=== PATIENT | male | born 1935 | race Caucasian/White ===

== ENCOUNTER 2017-11-23 11:40 | Inpatient (IN) | payer MEDICARE ==
[~2017-11-23] VITALS: Ht 182.9 cm; Wt 85.0 kg
[2017-11-23] VITALS (8 sets, daily range): BP systolic 132–224; BP diastolic 67–105; PULSE 67–87; RESP 16–20; TEMP 97.6–98.3; O2SAT 95–97
[~2017-11-23 11:40] MED LIST: ALLO100T PO; CARV6.252 PO; COUM4TAB7 PO; DOXY100T PO; GABA300C3 PO; LISI-363 PO; NIFE1TAB86 PO; RED600TA PO; ST JTAB PO; TAB-TAB PO; TEST-55 TD; WARF2TAB PO; XANA0.5T PO
--- NOTE | 2017-11-23 11:58 | PD ---
HPI Chief Complaint: Abnormal Results Time Seen by Provider: 11:53 Travel History International Travel<30 days: No Contact w/Intl Traveler<30days: No Traveled to known affect area: No History of Present Illness HPI 82-year-old male with history of A. fib, hypertension, stage III chronic kidney disease, remote history of prostate cancer, presents to the emergency department for evaluation of worsening shortness of breath. Patient states he was started on minoxidil by Dr. Ramirez, his cell technician on October 31. Since then he has noticed increasing edema in his lower extremities and feels like he has been short of breath with increased wheezing. Patient states that he is unable to lie flat without significant shortness of breath. He is unable to do minimal activity without significant shortness of breath. Simply sitting here he feels short of breath. Denies any pain. He denies any recent illnesses, fever, or chills. He has no other symptoms reported this time. Patient's primary care provider is Dr. Day. His cell technician is Dr. Ramirez and his conference and event organiser is Dr. Rueda. PFSH Past Medical History Hx Anticoagulant Therapy: Yes Heart Rhythm Problems: Yes (A FIB, RCVD CARDIOVERSION) Cancer: Yes Cardiovascular Problems: Yes High Cholesterol: No Chemotherapy: No Cerebrovascular Accident: No Diabetes: No Diminished Hearing: Yes ([place]) Endocrine: No Glaucoma: No Hepatitis: No Hiatal Hernia: No Hypertension: Yes Immune Disorder: No Musculoskeletal: No Neurologic: No Psychiatric: No Reproductive: No Respiratory: No Radiation Therapy: Yes (PROSTATE) Thyroid Disease: No Past Surgical History Abdominal Surgery: Yes (BILATERAL INGUINAL HERNIA REPAIR) Eye Surgery: Yes (RIGHT EYE CATARACT) Genitourinary Surgery: Yes (prostatectomy) Pacemaker: No Prostatectomy: Yes Social History Alcohol Use: No Tobacco Use: No Substance Use: No Allergies-Medications (Allergen,Severity, Reaction): Coded Allergies: No Known Allergies (Verified Adverse Reaction, Unknown, 11/23/17) Reported Meds & Prescriptions Reported Meds & Active Scripts Active Reported Testosterone Topical (Testosterone) 10 Mg/0.5 Gm Gel 10 Mg TOPICAL DAILY 10 mg/actuation Minoxidil 10 Mg Tab 10 Mg PO DAILY Lisinopril 20 Mg Tab 20 Mg PO DAILY Hydralazine (Hydralazine HCl) 100 Mg Tab 50 Mg PO TID Take with meals Eliquis (Apixaban) 2.5 Mg Tab 2.5 Mg PO BID Carvedilol 6.25 Mg Tab 6.25 Mg PO BID Atorvastatin (Atorvastatin Calcium) 10 Mg Tab 10 Mg PO HS Aspirin 81 Mg Chew 81 Mg CHEW DAILY Alprazolam 0.5 Mg Tab 0.5 Mg PO BID PRN Allopurinol 100 Mg Tab 100 Mg PO DAILY Review of Systems Except as stated in HPI: all other systems reviewed are Neg Physical Exam Narrative GENERAL: This is a well-nourished elderly male patient, in no acute distress. SKIN: Focused skin assessment warm/dry. HEAD: Atraumatic. Normocephalic. EYES: Pupils equal and round. No scleral icterus. No injection or drainage. ENT: No nasal bleeding or discharge. Mucous membranes pink and moist. NECK: Trachea midline. No JVD. CARDIOVASCULAR: Regular rate and rhythm. RESPIRATORY: No accessory muscle use. Diminished with fine crackles in the bases. Breath sounds equal bilaterally. GASTROINTESTINAL: Abdomen soft, non-tender, nondistended. Ventral hernia is noted. Soft, nontender. Hepatic and splenic margins not palpable. MUSCULOSKELETAL: No obvious deformities. No clubbing. No cyanosis. 2+ plus bilateral lower extremity edema. Distal pulses are palpable. Cap refill within normal limits. NEUROLOGICAL: Awake and alert. No obvious cranial nerve deficits. Motor grossly within normal limits. Normal speech. PSYCHIATRIC: Appropriate mood and affect; insight and judgment normal. Data Data Last Documented VS Vital Signs Date Time Temp Pulse Resp B/P (MAP) Pulse Ox O2 Delivery O2 Flow Rate FiO2 11/23/17 12:03 210/100 (136) 167/89 (115) 11/23/17 12:02 96 Room Air 11/23/17 12:00 69 24 11/23/17 11:42 97.6 Orders Orders Electrocardiogram (11/23/17 11:58) B-Type Natriuretic Peptide (11/23/17 11:58) Ckmb (Isoenzyme) Profile (11/23/17 11:58) Complete Blood Count With Diff (11/23/17 11:58) Comprehensive Metabolic Panel (11/23/17 11:58) Magnesium (Mg) (11/23/17 11:58) Prothrombin Time / Inr (Pt) (11/23/17 11:58) Act Partial Throm Time (Ptt) (11/23/17 11:58) Troponin I (11/23/17 11:58) Ecg Monitoring (11/23/17 11:58) Bilateral Bp Monitoring (11/23/17 11:58) Iv Access Insert/Monitor (11/23/17 11:58) Oximetry (11/23/17 11:58) Oxygen Administration (11/23/17 11:58) Sodium Chloride 0.9% Flush (Ns Flush) (11/23/17 12:00) Chest, Pa & Lat (11/23/17 11:58) CKMB (11/23/17 12:07) CKMB% (11/23/17 12:07) Labs Laboratory Tests Test 11/23/17 12:07 White Blood Count 5.6 TH/MM3 Red Blood Count 2.52 MIL/MM3 Hemoglobin 7.6 GM/DL Hematocrit 23.0 % Mean Corpuscular Volume 91.3 FL Mean Corpuscular Hemoglobin 30.1 PG Mean Corpuscular Hemoglobin Concent 33.0 % Red Cell Distribution Width 16.7 % Platelet Count 243 TH/MM3 Mean Platelet Volume 8.2 FL Neutrophils (%) (Auto) 72.5 % Lymphocytes (%) (Auto) 9.7 % Monocytes (%) (Auto) 10.7 % Eosinophils (%) (Auto) 5.9 % Basophils (%) (Auto) 1.2 % Neutrophils # (Auto) 4.0 TH/MM3 Lymphocytes # (Auto) 0.5 TH/MM3 Monocytes # (Auto) 0.6 TH/MM3 Eosinophils # (Auto) 0.3 TH/MM3 Basophils # (Auto) 0.1 TH/MM3 CBC Comment DIFF FINAL Differential Comment Prothrombin Time 11.8 SEC Prothromb Time International Ratio 1.2 RATIO Activated Partial Thromboplast Time 42.4 SEC Blood Urea Nitrogen 67 MG/DL Creatinine 4.47 MG/DL Random Glucose 86 MG/DL Total Protein 6.0 GM/DL Albumin 2.9 GM/DL Calcium Level 9.1 MG/DL Magnesium Level 2.2 MG/DL Alkaline Phosphatase 60 U/L Aspartate Amino Transf (AST/SGOT) 16 U/L Alanine Aminotransferase (ALT/SGPT) 27 U/L Total Bilirubin 0.4 MG/DL Sodium Level 144 MEQ/L Potassium Level 4.5 MEQ/L Chloride Level 114 MEQ/L Carbon Dioxide Level 20.5 MEQ/L Anion Gap 10 MEQ/L Estimat Glomerular Filtration Rate 13 ML/MIN Total Creatine Kinase 310 U/L Creatine Kinase MB 4.6 NG/ML Creatine Kinase MB % 1.5 % Troponin I 0.32 NG/ML B-Type Natriuretic Peptide 188 PG/ML MDM Medical Decision Making Medical Screen Exam Complete: Yes Emergency Medical Condition: Yes Medical Record Reviewed: Yes Differential Diagnosis New onset CHF versus pneumonia versus electrolyte abnormality versus ACS Narrative Course 82-year-old male presents to emergency department for evaluation of worsening shortness of breath. Patient appears nontoxic however he does have 2+ plus bilateral lower extremity edema, diminished breath sounds, with crackles. He also is verbalizing significant shortness of breath. He has no pain. Laboratory Tests Test 11/23/17 12:07 White Blood Count 5.6 TH/MM3 Red Blood Count 2.52 MIL/MM3 Hemoglobin 7.6 GM/DL Hematocrit 23.0 % Mean Corpuscular Volume 91.3 FL Mean Corpuscular Hemoglobin 30.1 PG Mean Corpuscular Hemoglobin Concent 33.0 % Red Cell Distribution Width 16.7 % Platelet Count 243 TH/MM3 Mean Platelet Volume 8.2 FL Neutrophils (%) (Auto) 72.5 % Lymphocytes (%) (Auto) 9.7 % Monocytes (%) (Auto) 10.7 % Eosinophils (%) (Auto) 5.9 % Basophils (%) (Auto) 1.2 % Neutrophils # (Auto) 4.0 TH/MM3 Lymphocytes # (Auto) 0.5 TH/MM3 Monocytes # (Auto) 0.6 TH/MM3 Eosinophils # (Auto) 0.3 TH/MM3 Basophils # (Auto) 0.1 TH/MM3 CBC Comment DIFF FINAL Differential Comment Prothrombin Time 11.8 SEC Prothromb Time International Ratio 1.2 RATIO Activated Partial Thromboplast Time 42.4 SEC Blood Urea Nitrogen 67 MG/DL Creatinine 4.47 MG/DL Random Glucose 86 MG/DL Total Protein 6.0 GM/DL Albumin 2.9 GM/DL Calcium Level 9.1 MG/DL Magnesium Level 2.2 MG/DL Alkaline Phosphatase 60 U/L Aspartate Amino Transf (AST/SGOT) 16 U/L Alanine Aminotransferase (ALT/SGPT) 27 U/L Total Bilirubin 0.4 MG/DL Sodium Level 144 MEQ/L Potassium Level 4.5 MEQ/L Chloride Level 114 MEQ/L Carbon Dioxide Level 20.5 MEQ/L Anion Gap 10 MEQ/L Estimat Glomerular Filtration Rate 13 ML/MIN Total Creatine Kinase 310 U/L Creatine Kinase MB 4.6 NG/ML Creatine Kinase MB % 1.5 % Troponin I 0.32 NG/ML B-Type Natriuretic Peptide 188 PG/ML Last Impressions Chest X-Ray 11/23/17 1158 Signed Impressions: Service Date/Time: Thursday, November 23, 2017 12:15 - CONCLUSION: 1. Hyperaeration of lung menjivar with mild increased interstitial markings bilaterally suggestive of early pulmonary edema. 2. Small left pleural effusion. Mike Miller MD EKG is reviewed by my attending physician. Lab work is also reviewed. Patient' s hemoglobin is 7.6. He states that this has been worked up several times in the past and they "never find anything." Patient also has a creatinine of 4.47. In review of his lab work our last reading is 1.86. Patient's potassium is 4.5. Troponin is also elevated at 0.32. Again the patient is not having any pain and there are no significant changes on his EKG as reviewed by my attending. BNP is 188. I discussed the patient my attending physician. A call has been placed to Dr. Collier, [facility] hospitalist continuous process machine operator. Patient will be admitted to his service. I also discussed the patient with Dr. Rueda, conference and event organiser continuous process machine operator. A consult will be placed to them. Plan is discussed with the patient and his . They are in agreement with this plan of care. Diagnosis Primary Impression: Dyspnea Qualified Codes: R06.02 - Shortness of breath Additional Impressions: Pulmonary edema Qualified Codes: J81.0 - Acute pulmonary edema Acute on chronic kidney failure Qualified Codes: N17.9 - Acute kidney failure, unspecified; N18.9 - Chronic kidney disease, unspecified Elevated troponin Admitting Information Admitting Physician Requests: Admit Condition: Stable Lelo So DELIA Nov 23, 2017 11:58
--- NOTE | 2017-11-23 12:23 | RADRPT ---
EXAM DATE/TIME: 11/23/2017 12:15 [facility] COMPARISON: No previous studies available for comparison. INDICATIONS : Short of Breath MEDICAL HISTORY : Hypertension. SURGICAL HISTORY : None. ENCOUNTER: Initial ACUITY: 1 day PAIN SCORE: 0/10 LOCATION: chest FINDINGS: PA and lateral views of the chest demonstrates increased interstitial markings bilaterally. There is hyperaeration of the lung menjivar. There is blunting of the left costophrenic angle suggestive of a sm all effusion. The heart size is within normal limits. Osseous structures are intact. CONCLUSION: 1. Hyperaeration of lung menjivar with mild increased interstitial markings bilaterally suggestive of e maru pulmonary edema. 2. Small left pleural effusion. Mike Miller MD on November 23, 2017 at 12:20 Board Certified Radiologist. This report was verified electronically.
[2017-11-23 12:37] LABS: BASOPHIL # 0.1 TH/MM3 (0-0.2); BASOPHIL % 1.2 % (0.0-2.0); EOSINOPHIL # 0.3 TH/MM3 (0-0.4); EOSINOPHIL % 5.9 % (0.0-4.0); HEMOGLOBIN 7.6 GM/DL (13.0-17.0); LYMPH % 9.7 % (9.0-44.0); LYMPHOCYTE # 0.5 TH/MM3 (1.0-4.8); MEAN CELL VOLUME 91.3 FL (80.0-100.0); MEAN CORPUSCULAR HEMOGLOBIN 30.1 PG (27.0-34.0); MEAN PLATELET VOLUME 8.2 FL (7.0-11.0); MONO % 10.7 % (0.0-8.0); MONOCYTE # 0.6 TH/MM3 (0-0.9); NEUT % 72.5 % (16.0-70.0); PLATELET COUNT 243 TH/MM3 (150-450); RED BLOOD COUNT 2.52 MIL/MM3 (4.50-5.90); RED CELL DISTRIBUTION WIDTH 16.7 % (11.6-17.2); WHITE BLOOD COUNT 5.6 TH/MM3 (4.0-11.0)
[2017-11-23 12:47] LABS: INTERNATIONAL NORMALIZED RATIO 1.2 RATIO; PROTHROMBIN TIME - PATIENT 11.8 SEC (9.8-11.6)
[2017-11-23 12:58] LABS: ALBUMIN 2.9 GM/DL (3.4-5.0); AST (GOT) 16 U/L (15-37); BICARBONATE 20.5 MEQ/L (21.0-32.0); BLOOD UREA NITROGEN 67 MG/DL (7-18); CALCIUM 9.1 MG/DL (8.5-10.1); CHLORIDE 114 MEQ/L (98-107); CREATININE 4.47 MG/DL (0.60-1.30); GLOMERULAR FILTRATION RATE 13 ML/MIN (>89); GLUCOSE,RANDOM 86 MG/DL (74-106); MAGNESIUM 2.2 MG/DL (1.5-2.5); SODIUM (NA) 144 MEQ/L (136-145)
[2017-11-23 13:03] LABS: ALKALINE PHOSPHATASE 60 U/L (45-117); ALT (GPT) 27 U/L (12-78); TOTAL BILIRUBIN ADULT 0.4 MG/DL (0.2-1.0); TROPONIN I 0.32 NG/ML (0.02-0.05)
[2017-11-23] MEDS ORDERED: ATOR10TA15 PO (13:12)
[2017-11-23] MEDS ORDERED: ALLO100T PO (13:12)
[2017-11-23] MEDS ORDERED: APIX2.5T PO (13:12)
[2017-11-23] MEDS ORDERED: ASPI-516 CHEW (13:12)
[2017-11-23] MEDS ORDERED: LISI-515 PO (13:12)
[2017-11-23] MEDS ORDERED: MINO10TA PO (13:12)
[2017-11-23] MEDS ORDERED: HYDR-3801 PO (13:12)
[2017-11-23] MEDS ORDERED: ALPR0.5T3 PO (13:12)
[2017-11-23] MEDS ORDERED: CARV6.252 PO (13:12)
[2017-11-23] MEDS ORDERED: TEST1GEL10 TOPICAL (13:14)
--- NOTE | 2017-11-23 13:40 | PD ---
Data Data Last Documented VS Vital Signs Date Time Temp Pulse Resp B/P (MAP) Pulse Ox O2 Delivery O2 Flow Rate FiO2 11/23/17 13:29 76 18 176/85 (115) 97 Room Air 11/23/17 11:42 97.6 Orders Orders Electrocardiogram (11/23/17 11:58) B-Type Natriuretic Peptide (11/23/17 11:58) Ckmb (Isoenzyme) Profile (11/23/17 11:58) Complete Blood Count With Diff (11/23/17 11:58) Comprehensive Metabolic Panel (11/23/17 11:58) Magnesium (Mg) (11/23/17 11:58) Prothrombin Time / Inr (Pt) (11/23/17 11:58) Act Partial Throm Time (Ptt) (11/23/17 11:58) Troponin I (11/23/17 11:58) Ecg Monitoring (11/23/17 11:58) Bilateral Bp Monitoring (11/23/17 11:58) Iv Access Insert/Monitor (11/23/17 11:58) Oximetry (11/23/17 11:58) Oxygen Administration (11/23/17 11:58) Sodium Chloride 0.9% Flush (Ns Flush) (11/23/17 12:00) Chest, Pa & Lat (11/23/17 11:58) CKMB (11/23/17 12:07) CKMB% (11/23/17 12:07) Admit Order (Ed Use Only) (11/23/17 13:33) Labs Laboratory Tests Test 11/23/17 12:07 White Blood Count 5.6 TH/MM3 Red Blood Count 2.52 MIL/MM3 Hemoglobin 7.6 GM/DL Hematocrit 23.0 % Mean Corpuscular Volume 91.3 FL Mean Corpuscular Hemoglobin 30.1 PG Mean Corpuscular Hemoglobin Concent 33.0 % Red Cell Distribution Width 16.7 % Platelet Count 243 TH/MM3 Mean Platelet Volume 8.2 FL Neutrophils (%) (Auto) 72.5 % Lymphocytes (%) (Auto) 9.7 % Monocytes (%) (Auto) 10.7 % Eosinophils (%) (Auto) 5.9 % Basophils (%) (Auto) 1.2 % Neutrophils # (Auto) 4.0 TH/MM3 Lymphocytes # (Auto) 0.5 TH/MM3 Monocytes # (Auto) 0.6 TH/MM3 Eosinophils # (Auto) 0.3 TH/MM3 Basophils # (Auto) 0.1 TH/MM3 CBC Comment DIFF FINAL Differential Comment Prothrombin Time 11.8 SEC Prothromb Time International Ratio 1.2 RATIO Activated Partial Thromboplast Time 42.4 SEC Blood Urea Nitrogen 67 MG/DL Creatinine 4.47 MG/DL Random Glucose 86 MG/DL Total Protein 6.0 GM/DL Albumin 2.9 GM/DL Calcium Level 9.1 MG/DL Magnesium Level 2.2 MG/DL Alkaline Phosphatase 60 U/L Aspartate Amino Transf (AST/SGOT) 16 U/L Alanine Aminotransferase (ALT/SGPT) 27 U/L Total Bilirubin 0.4 MG/DL Sodium Level 144 MEQ/L Potassium Level 4.5 MEQ/L Chloride Level 114 MEQ/L Carbon Dioxide Level 20.5 MEQ/L Anion Gap 10 MEQ/L Estimat Glomerular Filtration Rate 13 ML/MIN Total Creatine Kinase 310 U/L Creatine Kinase MB 4.6 NG/ML Creatine Kinase MB % 1.5 % Troponin I 0.32 NG/ML B-Type Natriuretic Peptide 188 PG/ML MDM Supervised Visit with ALECIA: Yes Narrative Course I, Dr. Mann ,, have reviewed the advance practice practitioner's documentation and am in agreement, met with the patient face to face, made the diagnosis, and the medical decision making was done by me. *My assessment and Findings: patient seen and examined by me in addition to Lelo LIN, somewhat nebulous of the picture of this 82-year-old male who presents emergency department with shortness of breath and orthopnea, he does have an acute kidney injury and has been followed by a manager learning, he was on dialysis for only a short time while in the ICU what sounds like severe sepsis in the past. Patient has not been on dialysis in some time. Has an acute kidney injury today but given his pulmonary edema he does need a dose of Lasix to help treat that. An elevated troponin but a BNP is normal. Again is unclear as to the primary etiology behind his fluid overload, will need admission for further workup and the patient was discussed with Dr. Ashton. He is saturating well protecting his airway and has adequate blood pressure Diagnosis Primary Impression: Dyspnea Qualified Codes: R06.02 - Shortness of breath Additional Impressions: Pulmonary edema Qualified Codes: J81.0 - Acute pulmonary edema Elevated troponin Acute on chronic kidney failure Qualified Codes: N17.9 - Acute kidney failure, unspecified; N18.9 - Chronic kidney disease, unspecified Admitting Information Admitting Physician Requests: Admit Condition: Jesus Stockton MD Nov 23, 2017 13:40
[2017-11-23] MEDS ORDERED: FUROSEMIDE 40 MG/4 ML VIAL IV PUSH ONE (13:45)
--- NOTE | 2017-11-23 14:10 | HHI.HP ---
HPI Service [facility] Hospitalists Primary Care Physician Marco Day MD, PhD Admission Diagnosis dyspnea; pulmonary edema; acute on chronic kidney failure; Chief Complaint: sob. swelling Travel History International Travel<30 Days: No Contact w/Intl Traveler <30 Da: No Traveled to Known Affected Are: No History of Present Illness Pt is 82 yo with chronic afib, htn, hx prostate ca/radiation,ckd stage 4. recent cr 2.8 and temporary HD back in 2013 following ischemic bowel and perforation. Pt says he has gained about 40 pounds since May or June. [place] but getting more difficult with swelling and sob. Was told it could be from minoxadil started for his bp. In ED he was found to have acute kidney injury and severe lower ext swelling to thighs. Pt was started on IV diuretics and admitted for nephrology consultation. admitted February 20-March 29 2014: Review of Systems Other sob weight gain. Past Family Social History Past Medical History chronic afib.hx cardioversion htn macular degeneration lipomas hx prostate ca/radiation ckd stage 4. recent cr 2.8 anemia. most recent hgb's 10-11 diverticulosis bilateral inguinal hernia repairs admitted February 20-March 29 2014: ..sbo. ryan/temporary HD/ischemic bowel with perforation/ respiratory failure/ intubation underwent Exploratory laparotomy w/ resection ~100cm small bowel with no anastomosis on 02/21/14 and was found to is ischemic bowel with perforation. STAT echo on 02/[address] Forman which reported EF to 35-40% decreased from 55% on prior echo. OR on 02/23 for Exploratory laparotomy w/ resection of additional ~120cm small bowel with primary anastomosis. . Trach was placed on 03/08/14. Permacath placed on 03/11/14 after discharge pt had another echo with EF back up to 55% Reported Medications Testosterone Topical (Testosterone) 10 Mg/0.5 Gm Gel 10 Mg TOPICAL DAILY 10 mg/actuation Minoxidil 10 Mg Tab 10 Mg PO DAILY Lisinopril 20 Mg Tab 20 Mg PO BID Hydralazine (Hydralazine HCl) 100 Mg Tab 50 Mg PO TID Take with meals Eliquis (Apixaban) 2.5 Mg Tab 2.5 Mg PO BID Carvedilol 6.25 Mg Tab 6.25 Mg PO BID Atorvastatin (Atorvastatin Calcium) 10 Mg Tab 10 Mg PO HS Aspirin 81 Mg Chew 81 Mg CHEW DAILY Alprazolam 0.5 Mg Tab 0.5 Mg PO QHS PRN Allopurinol 100 Mg Tab 100 Mg PO DAILY Allergies: Coded Allergies: No Known Allergies (Verified Adverse Reaction, Unknown, 11/23/17) Family History nc Social History no etoh/tob Physical Exam Vital Signs mild sob oriented jvd heart irreg lung diminished christiana abd s/nt. hernia ext 3plus edema to thighs christiana penile edema Vital Signs Date Time Temp Pulse Resp B/P (MAP) Pulse Ox O2 Delivery O2 Flow Rate FiO2 11/23/17 13:29 76 18 176/85 (115) 97 Room Air 11/23/17 12:03 210/100 (136) 167/89 (115) 11/23/17 12:02 96 Room Air 11/23/17 12:02 96 Room Air 11/23/17 12:00 69 24 96 Room Air 11/23/17 11:42 97.6 80 16 210/103 (138) 96 Room Air Laboratory Laboratory Tests Test 11/23/17 12:07 White Blood Count 5.6 Red Blood Count 2.52 Hemoglobin 7.6 Hematocrit 23.0 Mean Corpuscular Volume 91.3 Mean Corpuscular Hemoglobin 30.1 Mean Corpuscular Hemoglobin Concent 33.0 Red Cell Distribution Width 16.7 Platelet Count 243 Mean Platelet Volume 8.2 Neutrophils (%) (Auto) 72.5 Lymphocytes (%) (Auto) 9.7 Monocytes (%) (Auto) 10.7 Eosinophils (%) (Auto) 5.9 Basophils (%) (Auto) 1.2 Neutrophils # (Auto) 4.0 Lymphocytes # (Auto) 0.5 Monocytes # (Auto) 0.6 Eosinophils # (Auto) 0.3 Basophils # (Auto) 0.1 CBC Comment DIFF FINAL Differential Comment Prothrombin Time 11.8 Prothromb Time International Ratio 1.2 Activated Partial Thromboplast Time 42.4 Blood Urea Nitrogen 67 Creatinine 4.47 Random Glucose 86 Total Protein 6.0 Albumin 2.9 Calcium Level 9.1 Magnesium Level 2.2 Alkaline Phosphatase 60 Aspartate Amino Transf (AST/SGOT) 16 Alanine Aminotransferase (ALT/SGPT) 27 Total Bilirubin 0.4 Sodium Level 144 Potassium Level 4.5 Chloride Level 114 Carbon Dioxide Level 20.5 Anion Gap 10 Estimat Glomerular Filtration Rate 13 Total Creatine Kinase 310 Creatine Kinase MB 4.6 Creatine Kinase MB % 1.5 Troponin I 0.32 B-Type Natriuretic Peptide 188 Result Diagram: 11/23/17 1207 11/23/17 1207 Caprini VTE Risk Assessment Caprini VTE Risk Assessment: Mod/High Risk (score >= 2) Caprini Risk Assessment Model Point Value = 1 Point Value = 2 Point Value = 3 Point Value = 5 Age 41-60 Minor surgery BMI > 25 kg/m2 Swollen legs Varicose veins or History of unexplained or recurrent spontaneous Oral contraceptives or hormone replacement Sepsis (< 1 month) Serious lung disease, including pneumonia (< 1 month) Abnormal pulmonary function Acute myocardial infarction Congestive heart failure (< 1 month) History of inflammatory bowel disease Medical patient at bed rest Age 61-74 Arthroscopic surgery Major open surgery (> 45 min) Laparoscopic surgery (> 45 min) Malignancy Confined to bed (> 72 hours) Immobilizing plaster cast Central venous access Age >= 75 History of VTE Family history of VTE Factor V Leiden Prothrombin [id number] Lupus anticoagulant Anticardiolipin antibodies Elevated serum homocysteine Heparin-induced thrombocytopenia Other congenital or acquired thrombophilia Stroke (< 1 month) Elective arthroplasty Hip, pelvis, or leg fracture Acute spinal cord injury (< 1 month) Prophylaxis Regimen Total Risk Factor Score Risk Level Prophylaxis Regimen 0-1 Low Early ambulation 2 Moderate Order ONE of the following: *Sequential Compression Device (SCD) *Heparin 5000 units SQ BID 3-4 Higher Order ONE of the following medications: *Heparin 5000 units SQ TID *Enoxaparin/Lovenox 40 mg SQ daily (WT < 150 kg, CrCl > 30 mL/min) *Enoxaparin/Lovenox 30 mg SQ daily (WT < 150 kg, CrCl > 10-29 mL/min) *Enoxaparin/Lovenox 30 mg SQ BID (WT < 150 kg, CrCl > 30 mL/min) AND/OR *Sequential Compression Device (SCD) 5 or more Highest Order ONE of the following medications: *Heparin 5000 units SQ TID (Preferred with Epidurals) *Enoxaparin/Lovenox 40 mg SQ daily (WT < 150 kg, CrCl > 30 mL/min) *Enoxaparin/Lovenox 30 mg SQ daily (WT < 150 kg, CrCl > 10-29 mL/min) *Enoxaparin/Lovenox 30 mg SQ BID (WT < 150 kg, CrCl > 30 mL/min) AND *Sequential Compression Device (SCD) Assessment and Plan Problem List: (1) Acute worsening of stage 4 chronic kidney disease ICD Codes: N28.9 - Disorder of kidney and ureter, unspecified; N18.4 - Chronic kidney disease, stage 4 (severe) Status: Acute Plan: 1. acute/chronic kidney dz stage 4 2. volume overload 3. acute on chronic anemia 4. afib on anticoagulation 5. htn 6. hx prostate ca/radiation 7. hx sbo/ischemic bowel perforation/resection cont iv lasix bid. might need to increase dose or add iv albumen check weight/in/output daily echo to eval LVF hold ayo inh cont other home bp meds dvt prophylaxis renal consulted property assessment monitor iron studies. stool guiac. (2) Anemia ICD Codes: D64.9 - Anemia, unspecified Status: Acute (3) HTN (hypertension) ICD Codes: I10 - HTN (hypertension) Status: Chronic (4) Afib ICD Codes: I48.91 - Afib Status: Chronic (5) History of prostate cancer ICD Codes: Z85.46 - History of prostate cancer Status: Chronic Physician Certification 2 Midnight Certification Type: Admission for Inpatient Services Order for Inpatient Services 4The services are ordered in accordance with Medicare regulations or non- Medicare payer requirements, as applicable. In the case of services not specified as inpatient-only, they are appropriately provided as inpatient services in accordance with the 2-midnight benchmark. Estimated LOS (days): 4 4 days is the estimated time the patient will need to remain in the hospital, assuming treatment plan goals are met and no additional complications. Post-Hospital Plan: Home Problem Qualifiers (1) Anemia: Qualified Codes: N18.4 - Chronic kidney disease, stage 4 (severe); D63.1 - Anemia in chronic kidney disease (2) Afib: Qualified Codes: I48.2 - Chronic atrial fibrillation Chauncey Ashton MD Nov 23, 2017 14:10
[2017-11-23] MEDS ORDERED: cloNIDine HCL 0.1 MG TAB PO PRN (15:00)
--- NOTE | 2017-11-23 15:07 | RADRPT ---
EXAM DATE/TIME: 11/23/2017 14:32 [facility] COMPARISON: No previous studies available for comparison. INDICATIONS : Increased BUN/Creatinine. MEDICAL HISTORY : Hypertension. Carcinoma, prostate. Anticoagulant Therapy. Macular degeneration. Hearing loss. Renal disease. Radiation therapy. SURGICAL HISTORY : Prostatectomy. Inguinal hernia repair. Right cataract removal. ENCOUNTER: Initial ACUITY: 1 day PAIN SCORE: 0/10 LOCATION: Bilateral flank MEASUREMENTS: RIGHT KIDNEY: 14.5 x 6.1 x 5.8 cm LEFT KIDNEY: 13.7 x 6.2 x 5.9 cm FINDINGS: RIGHT KIDNEY: There is some increased echogenicity of the renal parenchyma. There is no evidence of any hydronephro sis. There are several cysts of the right kidney. The largest cyst measures 7.3 x 6.7 cm on the upper pole. LEFT KIDNEY: There is some increased echogenicity of the renal parenchyma. There is no evidence of hydronephrosis. There is several cysts present. The largest cyst measures 5.3 cm on the upper pole. BLADDER: Within normal limits given the degree of distension. CONCLUSION: 1. No evidence of hydronephrosis. 2. Chronic medical renal disease. 3. Multiple Bilateral benign-appearing renal cysts. Mike Miller MD on November 23, 2017 at 15:04 Board Certified Radiologist. This report was verified electronically.
--- NOTE | 2017-11-23 17:08 | EKG ---
Date Performed: 11/23/2017 Time Performed: 12:27:42 PTAGE: 82 years EKG: Sinus rhythm WITH OCCASIONAL SUPRAVENTRICULAR PREMATURE COMPLEXES NONSPECIFIC T-WAVE ABNORMALITY ABNORMAL ECG PREVIOUS TRACING : 02/20/2014 01.26 Compared to previous tracing, nonspecific T wave abnormalit y is now present. DOCTOR: Carlos Doll Interpretating Date/Time 11/23/2017 17:07:30
[2017-11-23] MEDS: hydrALAZINE HCL 50 MG TAB PO SCH (17:23)
[2017-11-23] MEDS: FUROSEMIDE 40 MG/4 ML VIAL IV PUSH SCH (17:24)
--- NOTE | 2017-11-23 19:37 | MB ---
cc: ANA RUEDA MD DATE OF CONSULTATION: 11/23/2017 REASON FOR CONSULTATION: Acute on chronic kidney disease management. HISTORY OF PRESENT ILLNESS This is an 82-year-old male with a history of CKD. He follows up as an outpatient with Dr. Koby Rueda and Dr. Brito. He also has a history of atrial fibrillation. The patient had previous hemodialysis for one month in February of 2014 when he developed ischemic bowel due to adhesions from previous hernia surgery. At that time he had a perforation of the bowel and was intubated with respiratory failure and was on hemodialysis. He underwent a laparotomy with bowel resection at that time x2. 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 He has been managed for CKD and reports he had a GFR that ranged between 25 and 30 approximately four months ago. He has had ongoing issues with hypertension and is on multiple medications including Monoxidil. The patient is very active and walks two miles over the [place] just yesterday on his way to yoga class and back home. He was a previous marathon runner in the past and is noted to have increased shortness of breath symptomatically. In addition, he has had ongoing lower extremity edema. The patient attributes some of this volume overload symptoms to his recent addition of Minoxidil which was started for further hypertension management. He apparently had been on the calcium-channel joanne before which had been stopped. Due to his ongoing symptoms of mild wheezing and shortness of breath, he came to the emergency room for further evaluation. Here he was found to have a creatinine of 4.4, corresponding to a GFR of 13. His cardiac enzymes were otherwise negative and he was admitted for further evaluation of nephrology. At this time he is resting in bed comfortably. He has no acute complaints other than some mild fatigue and shortness of breath with ongoing lower extremity edema. Nephrology was consulted for further evaluation. In addition, the patient has apparent findings of anemia with a hemoglobin of 7.6. He reports he had a hemoglobin level in the 9 and 10 severe months ago. REVIEW OF SYSTEMS: The patient denies any fevers, chills, no nausea, no vomiting, no diarrhea. No constipation. No chest pain. The patient has had some symptomatic shortness of breath, however, has been quite active, walking [place] the bridge yesterday, walking two miles. No fever or chills, otherwise review of systems is negative. MEDICATIONS AT HOME 1. Testosterone. 2. Minoxidil 10 mg daily. 3. Lisinopril 20 mg p.o. b.i.d. 4. Hydralazine 15 mg p.o. t.i.d. 5. Eliquis 2.5 mg p.o. b.i.d. 6. Coreg 6.25 mg p.o. b.i.d. 7. Atorvastatin 10 mg p.o. q.h.s. 8. Aspirin 81 mg daily. 9. Alprazolam 0.5 mg p.o. q.h.s. p.r.n. 10. Allopurinol 100 mg daily. ALLERGIES NO KNOWN DRUG ALLERGIES. FAMILY HISTORY Noncontributory. SOCIAL HISTORY No alcohol, tobacco or drug use. The patient lives at home. PHYSICAL EXAMINATION At time of evaluation blood pressure 204/98, pulse 78, respiratory rate 17, pulse ox 97% on room air. General: Awake, alert, oriented, no apparent distress. HEENT: Neck, soft supple. Cardiac: Irregular. No murmurs, rubs, or gallops. Pulmonary: Decreased breath sounds at bases. Abdomen: Soft, nontender, nondistended. The patient with hernia. Extremities: 2 to 3+ edema bilaterally with scrotal edema. LABORATORY FINDINGS Sodium 144, potassium 4.5, chloride 114, bicarb 20.5, BUN 67, creatinine 4.4 with glucose of 86, AST 16, ALT 27, alk phos 60, CK was 310, MB was 4.6, troponin 0.32. BNP 188, albumin 2.9, white count 5.6, hemoglobin 7.6, hematocrit 23, platelet count of 243. ASSESSMENT/PLAN 1. Acute on chronic kidney disease. The patient has apparent baseline CKD, stage IV per labs apparently four months ago, with a GFR in the 20s. This is per discussion with the patient. Further outpatient records can be obtained on Saturday. The patient follows up as an outpatient with Dr. Koby Rueda and Dr. Brito. He was previously on dialysis for one month in 2013 when he had bowel ischemia and perforation. At this point he is hemodynamically stable. His volume status suggests volume overload with lower extremity edema. His respiratory status is stable otherwise. At this point I agree with Lasix as ordered. The patient has been ordered Lasix 40 milligrams IV b.i.d. He likely had some ongoing anasarca secondary to chronic kidney disease. There may be a component of some edema secondary to recent Minoxidil use as well. I suspect he may have progression of his chronic kidney disease. A renal ultrasound today showed 13 to 14 cm kidneys, however, there was findings of echogenicity suggestive of chronic kidney disease, simple cysts were seen as well. Should the patient be nearing dialysis, I discussed modality options of him. He has had previous hernias with abdominal surgeries and bowel ischemia. He may not be an ideal candidate for peritoneal dialysis, however, he may be a future candidate for hemodialysis. At this point there is no emergent need for hemodialysis, however, I will go ahead and order vessel mapping to check the adequacy of his peripheral veins for possible A-V fistula. Continue with diuretics at this time and continue to monitor renal function. Unclear if dialysis would need to be initiated this admission. He has no signs of hyperkalemia and there is no urgent dialysis needed at this point. Has otherwise been active, [place] and doing [place]. 2. Hypertension. The patient has been on multiple medications at home including hydrazaline, Lisinopril, Minoxidil and Coreg. At this point, the patient is on IV Lasix which should help blood pressure depending on his diuresis. Will continue with hydrazaline. Will hold Lisinopril given the acute kidney injury possibility. Will go ahead and initiate Procardia XL at 60 milligrams p.o. b.i.d. given significant hypertension. Will hold Monoxidil. The patient attributes some of his edema symptoms initiating at the time the Minoxidil was started. Will also increase coreg to 12.5mg BID. Continue to closely monitor the blood pressure. 3. History of gout. Continue allopurinol. 4. Atrial fibrillation. Continue with Eliquis. The patient is on Coreg. 5. History of prostate cancer and radiation treatment. No signs of any obstruction on renal ultrasound. Continue to monitor without any Ocasio. 6. Anemia. The patient has hemoglobin of 7.6. He apparently had a negative colonoscopy approximately three years ago after his previous bowel ischemia. I suspect this anemia is secondary to chronic kidney disease. I will go ahead and order iron studies and we may consider for Epogen. 7. Metabolic bone disease in the setting of CKD. Will check phosphorus, PTH and vitamin D levels. With advanced kidney disease, expect some degree of secondary hyperparathyroidism, however, will continue to monitor and check labs. MD ISA Villarreal/KONRAD /5:25 PM /7:09 PM MTDHafsa
[2017-11-23] MEDS ORDERED: CARVEDILOL 6.25 MG TAB PO SCH (21:00)
[2017-11-23] MEDS: CARVEDILOL 12.5 MG TAB PO SCH (21:00)
--- NOTE | 2017-11-23 21:53 | RADRPT ---
EXAM DATE/TIME: 11/23/2017 20:28 [facility] COMPARISON: No previous studies available for comparison. INDICATIONS : Evaluate for fistula. MEDICAL HISTORY : Hypertension. Carcinoma, prostate. Anticoagulant Therapy. Macular degeneration. Hearing loss. Renal d isease. Radiation therapy. SURGICAL HISTORY : Prostatectomy. Inguinal hernia repair. Right cataract removal. ENCOUNTER: Initial ACUITY: 1 day PAIN SCORE: 0/10 LOCATION: Bilateral arms. FINDINGS: RIGHT UPPER EXTREMITY: There is spontaneous flow documented in the brachial, basilic, cephalic, axillary, and subclavian vei ns. The vessels are compressible and augmentation response is documented. No filling defects are se en. The flow is phasic with respiration. Direction of flow in the jugular vein is caudal. LEFT UPPER EXTREMITY: There is spontaneous flow documented in the brachial, basilic, cephalic, axillary, and subclavian vei ns. The vessels are compressible and augmentation response is documented. No filling defects are se en. The flow is phasic with respiration. Direction of flow in the jugular vein is caudal. CONCLUSION: No DVT is identified within either upper extremity. Froylan Sahu MD on November 23, 2017 at 21:51 Board Certified Radiologist. This report was verified electronically.
[2017-11-23] MEDS: APIXABAN 2.5 MG TABLET PO SCH (22:19)
[2017-11-23] MEDS: NIFEdipine 60 MG SUSTAINED RELEASE TAB PO SCH (22:19)
[2017-11-23] MEDS: ATORVASTATIN 10 MG TAB PO SCH (22:19)
--- NOTE | 2017-11-23 23:44 | RADRPT ---
EXAM DATE/TIME: 11/23/2017 20:28 [facility] COMPARISON: No previous studies available for comparison. INDICATIONS : Evaluate for fistula. MEDICAL HISTORY : Hypertension. Carcinoma, prostate. Anticoagulant Therapy. Macular degeneration. Hearing loss. Renal d isease. Radiation therapy. SURGICAL HISTORY : Prostatectomy. Inguinal hernia repair. Right cataract removal. ENCOUNTER: Initial ACUITY: 1 day PAIN SCORE: 0/10 LOCATION: Bilateral amrs. CEPHALIC: ORIGIN: Right 2 mm Left 3 mm MID-ARM: Right 2 mm Left 4 mm ELBOW: Right 1 mm Left 2 mm FOREARM: Right 2 mm Left 4 mm WRIST: Right 2 mm Left 3 mm BASILIC: ORIGIN: Right 6 mm Left 6 mm MID-ARM: Right 5 mm Left 6 mm ELBOW: Right 5 mm Left 6 mm ARTERIES: BRACHIAL: Right 6 mm Left 6 mm ULNAR: Right 3 mm Left 3 mm RADIAL: Right 3 mm Left 4 mm VEINS: RADIAL: Right 2 mm Left 2 mm ULNAR: Right 2 mm Left 3 mm FINDINGS: The venous system of the upper extremities are patent by color Doppler imaging. Measurements of the arm veins (in mm) are listed above. CONCLUSION: Venous mapping of the upper extremities as above. Froylan Abrams MD on November 23, 2017 at 23:42 Board Certified Radiologist. This report was verified electronically.
[2017-11-24] VITALS (7 sets, daily range): BP systolic 113–138; BP diastolic 59–75; PULSE 60–75; RESP 16–21; TEMP 97.5–97.8; O2SAT 92–95
[2017-11-24] MEDS: ALPRAZolam 0.5 MG TAB PO PRN (00:27)
[2017-11-24 07:05] LABS: AUTOMATED NEUTROPHIL # 4.4 TH/MM3 (1.8-7.7); BASOPHIL # 0.1 TH/MM3 (0-0.2); BASOPHIL % 1.4 % (0.0-2.0); EOSINOPHIL # 0.4 TH/MM3 (0-0.4); EOSINOPHIL % 6.1 % (0.0-4.0); HEMATOCRIT 22.8 % (39.0-51.0); HEMOGLOBIN 7.7 GM/DL (13.0-17.0); LYMPH % 12.1 % (9.0-44.0); LYMPHOCYTE # 0.7 TH/MM3 (1.0-4.8); MEAN CORPUSCULAR HEMOGLOBIN 30.7 PG (27.0-34.0); MEAN CORPUSCULAR HGB CONC 33.8 % (32.0-36.0); MONO % 9.2 % (0.0-8.0); MONOCYTE # 0.6 TH/MM3 (0-0.9); NEUT % 71.2 % (16.0-70.0); PLATELET COUNT 244 TH/MM3 (150-450); RED BLOOD COUNT 2.51 MIL/MM3 (4.50-5.90); RED CELL DISTRIBUTION WIDTH 16.6 % (11.6-17.2); WHITE BLOOD COUNT 6.1 TH/MM3 (4.0-11.0)
[2017-11-24 07:45] LABS: ALBUMIN 2.7 GM/DL (3.4-5.0); ALT (GPT) 25 U/L (12-78); AST (GOT) 17 U/L (15-37); BLOOD UREA NITROGEN 71 MG/DL (7-18); CALCIUM 8.6 MG/DL (8.5-10.1); CHLORIDE 114 MEQ/L (98-107); CREATININE 4.72 MG/DL (0.60-1.30); GLOMERULAR FILTRATION RATE 12 ML/MIN (>89); GLUCOSE,RANDOM 81 MG/DL (74-106); IRON (FE) 24 MCG/DL (65-175); MAGNESIUM 2.1 MG/DL (1.5-2.5); PHOSPHORUS 5.3 MG/DL (2.5-4.9); SODIUM (NA) 144 MEQ/L (136-145)
[2017-11-24 07:54] LABS: ALKALINE PHOSPHATASE 57 U/L (45-117); FERRITIN 189 NG/ML (26-388); TOTAL BILIRUBIN ADULT 0.4 MG/DL (0.2-1.0); TOTAL IRON BINDING CAPACITY 218 MCG/DL (250-450); TOTAL PROTEIN 5.8 GM/DL (6.4-8.2)
[2017-11-24] MEDS: CARVEDILOL 12.5 MG TAB PO SCH ×2 (09:04→21:21)
[2017-11-24] MEDS: NIFEdipine 60 MG SUSTAINED RELEASE TAB PO SCH ×2 (09:04→21:21)
[2017-11-24] MEDS: ALLOPURINOL 100 MG TAB PO SCH (09:04)
[2017-11-24] MEDS: APIXABAN 2.5 MG TABLET PO SCH ×2 (09:04→21:21)
[2017-11-24] MEDS: hydrALAZINE HCL 50 MG TAB PO SCH ×3 (09:05→18:04)
[2017-11-24] MEDS: ASPIRIN 81 MG CHEW TAB CHEW SCH (09:05)
[2017-11-24] MEDS: FUROSEMIDE 40 MG/4 ML VIAL IV PUSH SCH ×2 (09:05→18:04)
[2017-11-24] MEDS: SODIUM CHLORIDE 0.9% FLUSH 10 ML FLUSH IVF PRN (09:05)
--- NOTE | 2017-11-24 09:30 | HHI.PR ---
Subjective Remarks DOING A LITTLE BETTER. Objective Vitals heart reg lung good air entry abd s/nt ext 2 plus edema lower ext improved Vital Signs Date Time Temp Pulse Resp B/P (MAP) Pulse Ox O2 Delivery O2 Flow Rate FiO2 11/24/17 04:00 Room Air 11/24/17 04:00 97.5 75 18 121/75 (90) 93 11/24/17 04:00 60 11/24/17 00:00 Room Air 11/24/17 00:00 97.8 70 16 129/67 (87) 95 11/24/17 00:00 68 11/23/17 20:00 67 11/23/17 20:00 Room Air 11/23/17 20:00 98.3 76 18 132/67 (88) 96 11/23/17 18:09 82 173/79 (110) 11/23/17 16:00 Room Air 11/23/17 15:40 98.0 87 20 224/105 (144) 95 11/23/17 15:07 78 17 204/98 (133) 97 11/23/17 13:29 76 18 176/85 (115) 97 Room Air 11/23/17 12:03 210/100 (136) 167/89 (115) 11/23/17 12:02 96 Room Air 11/23/17 12:02 96 Room Air 11/23/17 12:00 69 24 96 Room Air 11/23/17 11:42 97.6 80 16 210/103 (138) 96 Room Air Result Diagram: 11/24/17 0625 11/24/17 0625 A/P Problem List: (1) Acute worsening of stage 4 chronic kidney disease ICD Codes: N28.9 - Disorder of kidney and ureter, unspecified; N18.4 - Chronic kidney disease, stage 4 (severe) Status: Acute Plan: 1. acute/chronic kidney dz stage 4 hx temp dialysis after bowel perforation 2. volume overload slightly improved. 3. acute on chronic anemia 4. afib on anticoagulation 5. htn 6. hx prostate ca/radiation 7. hx sbo/ischemic bowel perforation/resection cont iv lasix bid. might need to increase dose or add iv albumen renal following and pt might need HD initiation. check weight/in/output daily echo to eval LVF hold ayo inh bp meds adjusted on admission. stable dvt prophylaxis shelter monitor iron studies. stool guiac. (2) Anemia ICD Codes: D64.9 - Anemia, unspecified Status: Acute (3) HTN (hypertension) ICD Codes: I10 - HTN (hypertension) Status: Chronic (4) Afib ICD Codes: I48.91 - Afib Status: Chronic (5) History of prostate cancer ICD Codes: Z85.46 - History of prostate cancer Status: Chronic Chauncey Ashton MD Nov 24, 2017 09:30
--- NOTE | 2017-11-24 15:07 | ECHRPT ---
Indication: Shortness of breath CONCLUSIONS The left ventricular systolic function is normal with an estimated ejection fraction in the range of 55-60%. Wall thickness is normal. Normal left ventricular size. [id number] mitral valve regurgitation. There is moderate tricuspid regurgitation. The estimated pulmonary arterial pressure is 42.3 mmHg. A left sided pleural effusion is present. BP: / HR: Rhythm: Sinus MEASUREMENTS (Male / Female) Normal Values Technical Quality:Good 2D ECHO LV Diastolic Diameter PLAX 5.7 cm 4.2 - 5.9 / 3.9 - 5.3 cm LV Systolic Diameter PLAX 4.2 cm IVS Diastolic Thickness 1.0 cm 0.6 - 1.0 / 0.6 - 0.9 cm LVPW Diastolic Thickness 1.0 cm 0.6 - 1.0 / 0.6 - 0.9 cm LV Relative Wall Thickness 0.3 LVOT Diameter 2.3 cm M-MODE Aortic Root Diameter MM 3.3 cm LA Systolic Diameter MM 4.5 cm LA Ao Ratio MM 1.4 AV Cusp Separation MM 2.1 cm DOPPLER AV Peak Velocity 189.0 cm/s AV Peak Gradient 14.3 mmHg LVOT Peak Velocity 111.0 cm/s LVOT Peak Gradient 4.9 mmHg AV Area Cont Eq pk 2.4 cm MR Peak Velocity 430.5 cm/s MR Peak Gradient 74.1 mmHg Mitral E Point Velocity 99.7 cm/s Mitral A Point Velocity 34.1 cm/s Mitral E to A Ratio 2.9 LV E' Lateral Velocity 9.0 cm/s Mitral E to LV E' Lateral Ratio 11.1 TR Peak Velocity 284.0 cm/s TR Peak Gradient 32.3 mmHg Right Atrial Pressure 10.0 mmHg Pulmonary Artery Systolic Pressu 42.3 mmHg Right Ventricular Systolic Press 42.3 mmHg PV Peak Velocity 117.0 cm/s PV Peak Gradient 5.5 mmHg FINDINGS LEFT VENTRICLE The left ventricular systolic function is normal with an estimated ejection fraction in the range of 55-60%. Wall thickness is normal. Normal left ventricular size. RIGHT VENTRICLE Normal right ventricular size and systolic function. LEFT ATRIUM The left atrial size is normal. RIGHT ATRIUM The right atrial size is normal. ATRIAL SEPTUM Normal atrial septal thickness without atrial level shunting by limited color doppler interrogation. AORTA The aortic root and proximal ascending aorta are normal in size on limited imaging. MITRAL VALVE [id number] mitral valve regurgitation. Structurally normal mitral valve. AORTIC VALVE Trileaflet aortic valve. No aortic valve stenosis or regurgitation. TRICUSPID VALVE There is moderate tricuspid regurgitation. The estimated pulmonary arterial pressure is 42.3 mmHg. Structurally normal tricuspid valve. PULMONARY VALVE No pulmonary valve regurgitation or stenosis. VESSELS The inferior vena cava is normal in size. PERICARDIUM A left sided pleural effusion is present. Adán Forman MD, FACC (Electronically Signed) Final Date:24 November 2017 15:06
[2017-11-24 15:32] LABS: BILIRUBIN, URINE NEG (NEG); BLOOD, URINE NEG (NEG); GLUCOSE,URINE NEG (NEG); KETONE, URINE NEG (NEG); MUCUS URINE FEW /lpf (OCC); NITRITE,URINE NEG (NEG); URINE COLOR YELLOW (YELLW/STRAW); URINE LEUKOCYTE ESTERASE NEG (NEG)
--- NOTE | 2017-11-24 17:47 | HHI.NPPN ---
Subjective Additional Remarks Feeling better today, wheezing improved. Objective Data Data Vital Signs Date Time Temp Pulse Resp B/P (MAP) Pulse Ox O2 Delivery O2 Flow Rate FiO2 11/24/17 16:00 97.6 62 17 127/65 (85) 93 11/24/17 12:00 97.8 69 20 113/59 (77) 92 11/24/17 08:11 67 11/24/17 08:00 97.6 73 20 138/72 (94) 93 11/24/17 04:00 Room Air 11/24/17 04:00 97.5 75 18 121/75 (90) 93 11/24/17 04:00 60 11/24/17 00:00 Room Air 11/24/17 00:00 97.8 70 16 129/67 (87) 95 11/24/17 00:00 68 11/23/17 20:00 67 11/23/17 20:00 Room Air 11/23/17 20:00 98.3 76 18 132/67 (88) 96 11/23/17 18:09 82 173/79 (110) -: 11/24/17 0625 11/24/17 0625 Physical Exam General Appearance: Well Developed, Well Nourished, No Acute Distress Ears & Nose Ears & Nose Exam: Tympanic Membranes Normal Throat Throat Exam: Oral Mucosa [place] & Moist Neck Neck Exam: Neck Supple Pulmonary Resp Exam: Clear Bilaterally, Decreased Bases Cardiology CV Exam: Regular Gastrointestinal/Abdomen GI Exam: Soft, Non-Tender, Positive Bowel Movement GI Remarks hernia Integumentary Skin Exam: Warm, Dry, Intact Extremeties Extremities Exam: Moderate Edema Neurologic Neuro Exam: Alert, Awake, Oriented, Speech Clear, Moving All Extremities Assessment/Plan Problem List: (1) Acute worsening of stage 4 chronic kidney disease ICD Codes: N28.9 - Disorder of kidney and ureter, unspecified; N18.4 - Chronic kidney disease, stage 4 (severe) Status: Acute Plan: 1. Acute on chronic kidney disease. Patient reports baseline CKD 4 per labs apparently four months ago in the office , with a GFR in the 20s. Creatinine stable from 4.4 -> 4.7. Presented with some dyspnea and wheezing for several days. There may have been a component of some edema secondary to recent Minoxidil use as well. [place] and [place]. Symptoms improved with lasix 40mg IV BID. Can continue for now - consider change to PO lasix tomorrow (patient was not on diuretic at home) Follow AM labs and symptoms. No need for HD at this point - continue to monitor. Suspect progression of CKD, echogenic kidneys on Doppler. Phos, PTH, Vit D levels ordered Previously on dialysis for one month in 2013 when he had bowel ischemia and perforation. Should the patient be nearing dialysis, I discussed modality options of him. He has had previous hernias with abdominal surgeries and bowel ischemia. He may not be an ideal candidate for peritoneal dialysis, however, he may be a future candidate for hemodialysis. Vein mapping was ordered - will remove left arm IV and protect left arm veins for AVF. Left radiocephalic AVF may be possible per mapping. (2) HTN (hypertension) ICD Codes: I10 - HTN (hypertension) Status: Chronic Plan: The patient had been on multiple medications at home including hydrazaline, Lisinopril, Minoxidil and Coreg. Apparent edema with minoxidil - minoxidil d/c. Hydralazine continued Started procardial XL 60mg PO BID Lisinopril held in light of possible RENETTA on CKD. Coreg dose increased. Initial SBP in 200s - improved now with diuresis and BP adjustment. Continue to monitor. (3) Anemia ICD Codes: D64.9 - Anemia, unspecified Status: Acute Plan: Suspect anemia due to CKD Will check iron panel - may need iron/epo He apparently had a negative colonoscopy approximately three years ago after his previous bowel ischemia (4) Afib ICD Codes: I48.91 - Afib Status: Chronic Plan: on eliquis, coreg (5) History of prostate cancer ICD Codes: Z85.46 - History of prostate cancer Status: Chronic Plan: No signs of any obstruction on renal ultrasound. Continue to monitor without any Ocasio. Eliezer Rueda MD Nov 24, 2017 17:47
[2017-11-24 20:15] LABS: BASOPHIL # 0.1 TH/MM3 (0-0.2); BASOPHIL % 1.2 % (0.0-2.0); EOSINOPHIL # 0.4 TH/MM3 (0-0.4); EOSINOPHIL % 5.6 % (0.0-4.0); HEMATOCRIT 22.4 % (39.0-51.0); HEMOGLOBIN 7.4 GM/DL (13.0-17.0); LYMPH % 8.9 % (9.0-44.0); LYMPHOCYTE # 0.6 TH/MM3 (1.0-4.8); MEAN CELL VOLUME 91.6 FL (80.0-100.0); MEAN CORPUSCULAR HEMOGLOBIN 30.2 PG (27.0-34.0); MEAN PLATELET VOLUME 8.3 FL (7.0-11.0); MONO % 9.7 % (0.0-8.0); MONOCYTE # 0.6 TH/MM3 (0-0.9); NEUT % 74.6 % (16.0-70.0); PLATELET COUNT 242 TH/MM3 (150-450); RED BLOOD COUNT 2.45 MIL/MM3 (4.50-5.90); RED CELL DISTRIBUTION WIDTH 16.2 % (11.6-17.2); WHITE BLOOD COUNT 6.7 TH/MM3 (4.0-11.0)
[2017-11-24] MEDS: ATORVASTATIN 10 MG TAB PO SCH (21:21)
[2017-11-25] VITALS (14 sets, daily range): BP systolic 131–164; BP diastolic 66–91; PULSE 64–78; RESP 18–21; TEMP 97.8–98.5; O2SAT 92–95
[2017-11-25 05:42] LABS: BICARBONATE 20.5 MEQ/L (21.0-32.0); BLOOD UREA NITROGEN 73 MG/DL (7-18); CALCIUM 8.5 MG/DL (8.5-10.1); CHLORIDE 112 MEQ/L (98-107); CREATININE 4.87 MG/DL (0.60-1.30); GLOMERULAR FILTRATION RATE 11 ML/MIN (>89); GLUCOSE,RANDOM 90 MG/DL (74-106); IRON (FE) 23 MCG/DL (65-175); SODIUM (NA) 143 MEQ/L (136-145); TOTAL IRON BINDING CAPACITY 230 MCG/DL (250-450)
[2017-11-25 05:45] LABS: FERRITIN 169 NG/ML (26-388)
--- NOTE | 2017-11-25 07:17 | PD.VS.CON ---
History of Present Illness Chief Complaint: near ESRD, need for HD access Consult Requested by: Dr. 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 Previously was on HD for a month in 2013 around the time of necrotizing bowel necessitating 1m in the hospital with several abdominal procedures and bowel resection. Primary shafting worker is Dr. Brito. No prior surgical AVF and pt is RIGHT handed. 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[place]) Family History [place] Home Medications Reported Medications Testosterone Topical (Testosterone Topical) 10 Mg/0.5 Gm Gel, 10 MG TOPICAL DAILY for Hormone Replacement, #60 GM 0 Refills 10 mg/actuation 11/23/17 Minoxidil (Minoxidil) 10 Mg Tab, 10 MG PO DAILY for Blood Pressure Management, # 30 TAB 0 Refills 11/23/17 Lisinopril (Lisinopril) 20 Mg Tab, 20 MG PO BID for Blood Pressure Management, # 30 TAB 0 Refills 11/23/17 Hydralazine (Hydralazine) 100 Mg Tab, 50 MG PO TID for Blood Pressure Management , TAB 0 Refills Take with meals 11/23/17 Apixaban (Eliquis) 2.5 Mg Tab, 2.5 MG PO BID for Blood Clot Prevention, TAB 0 Refills 11/23/17 Carvedilol (Carvedilol) 6.25 Mg Tab, 6.25 MG PO BID, #60 TAB 0 Refills 11/23/17 Atorvastatin (Atorvastatin) 10 Mg Tab, 10 MG PO HS for Cholesterol Management, # 30 TAB 0 Refills 11/23/17 Aspirin (Aspirin) 81 Mg Chew, 81 MG CHEW DAILY, TAB 0 Refills 11/23/17 Alprazolam (Alprazolam) 0.5 Mg Tab, 0.5 MG PO qhs Y for ANXIETY, TAB 0 Refills 11/23/17 Allopurinol (Allopurinol) 100 Mg Tab, 100 MG PO DAILY for Gout, #30 TAB 0 Refills 11/23/17 Coded Allergies: No Known Allergies (Verified Adverse Reaction, Unknown, 11/23/17) Review of Systems Constitutional: COMPLAINS OF: Weight gain Respiratory: COMPLAINS OF: Shortness of breath Cardiovascular: COMPLAINS OF: Dyspnea on Exertion Physical Exam Vitals/I&O Date Time Temp Pulse Resp B/P (MAP) Pulse Ox O2 Delivery O2 Flow Rate FiO2 11/25/17 04:00 78 11/25/17 04:00 Room Air 11/25/17 04:00 98.5 75 18 149/70 (96) 94 11/25/17 00:06 98.1 74 21 131/66 (87) 94 11/25/17 00:00 Room Air 11/25/17 00:00 75 11/24/17 20:00 97.5 72 21 138/73 (94) 94 11/24/17 20:00 70 11/24/17 20:00 Room Air 11/24/17 16:00 97.6 62 17 127/65 (85) 93 11/24/17 12:00 97.8 69 20 113/59 (77) 92 11/24/17 08:11 67 11/24/17 08:00 97.6 73 20 138/72 (94) 93 11/24/17 08:00 93 Room Air 11/25/17 11/25/17 11/25/17 07:00 15:00 23:00 Intake Total 480 ml Output Total 600 ml Balance -120 ml Neuro: alert, conversant HEENT: NC/AT Neck: trachea midline Heart: reg rate Lungs: + crackles B Abdomen: hernia, nontender Vascular: palpable UE pulses Extremities: good strength and no rashes Laboratory Tests Test 11/24/17 14:54 11/24/17 19:36 11/25/17 04:42 Urine Color YELLOW Urine Turbidity CLEAR Urine pH 5.0 Urine Specific [place] 1.009 Urine Protein 30 Urine Glucose (UA) NEG Urine Ketones NEG Urine Occult Blood NEG Urine Nitrite NEG Urine Bilirubin NEG Urine Urobilinogen LESS THAN 2.0 Urine Leukocyte Esterase NEG Urine RBC LESS THAN 1 Urine WBC 1 Urine Mucus FEW Microscopic Urinalysis Comment CULT NOT INDICATED Urine Random Creatinine 93.1 White Blood Count 6.7 Red Blood Count 2.45 Hemoglobin 7.4 Hematocrit 22.4 Mean Corpuscular Volume 91.6 Mean Corpuscular Hemoglobin 30.2 Mean Corpuscular Hemoglobin Concent 33.0 Red Cell Distribution Width 16.2 Platelet Count 242 Mean Platelet Volume 8.3 Neutrophils (%) (Auto) 74.6 Lymphocytes (%) (Auto) 8.9 Monocytes (%) (Auto) 9.7 Eosinophils (%) (Auto) 5.6 Basophils (%) (Auto) 1.2 Neutrophils # (Auto) 5.0 Lymphocytes # (Auto) 0.6 Monocytes # (Auto) 0.6 Eosinophils # (Auto) 0.4 Basophils # (Auto) 0.1 CBC Comment DIFF FINAL Differential Comment Blood Urea Nitrogen 73 Creatinine 4.87 Random Glucose 90 Calcium Level 8.5 Sodium Level 143 Potassium Level 3.9 Chloride Level 112 Carbon Dioxide Level 20.5 Anion Gap 11 Estimat Glomerular Filtration Rate 11 Iron Level 23 Total Iron Binding Capacity 230 Percent Iron Saturation 10.0 Ferritin 169 Last 48 hours Impressions Chest X-Ray 11/23/17 1158 Signed Impressions: Service Date/Time: Saturday, November 23, 2017 12:15 - CONCLUSION: 1. Hyperaeration of lung menjivar with mild increased interstitial markings bilaterally suggestive of early pulmonary edema. 2. Small left pleural effusion. Mike Miller MD Assessment and Plan Plan near ESRD and need for HD access 1. Based on vein mapping, likely a candidate for LEFT radiocephalic (Robert) AVF. Discussed with patient the surgery and the need to "save" his LEFT arm. 2. Will schedule surgery at patient's convenience. He has something out of the hospital with his this week and would prefer surgery next week. Tentatively on as outpatient for next 12/05. Can be adjusted based on his/medical service needs. thank you very much. Jesus Shaw MD FACS RPVI drywall finishing foreman [facility] - Heart and Vascular Surgery at [facility] [phone] Jesus Shaw MD Nov 25, 2017 07:17
[2017-11-25] MEDS: FUROSEMIDE 40 MG/4 ML VIAL IV PUSH SCH ×2 (09:18→18:25)
[2017-11-25] MEDS: NIFEdipine 60 MG SUSTAINED RELEASE TAB PO SCH ×2 (09:18→21:14)
[2017-11-25] MEDS: hydrALAZINE HCL 50 MG TAB PO SCH ×3 (09:18→18:25)
[2017-11-25] MEDS: APIXABAN 2.5 MG TABLET PO SCH ×2 (09:18→21:00)
[2017-11-25] MEDS: ASPIRIN 81 MG CHEW TAB CHEW SCH (09:19)
[2017-11-25] MEDS: CARVEDILOL 12.5 MG TAB PO SCH ×2 (09:19→21:13)
[2017-11-25] MEDS: ALLOPURINOL 100 MG TAB PO SCH (09:20)
[2017-11-25] MEDS: SODIUM CHLORIDE 0.9% FLUSH 10 ML FLUSH IVF PRN (09:20)
[2017-11-25] MEDS: CHOLECALCIFEROL (VIT D3) 1000 UNIT TAB PO SCH (09:25)
[2017-11-25 11:07] LABS: % SATURATION IRON PROFILE 9.9 % (20-50); IRON (FE) 21 MCG/DL (65-175); TOTAL IRON BINDING CAPACITY 213 MCG/DL (250-450)
[2017-11-25] MEDS ORDERED: FUROSEMIDE 100 MG/10 ML VIAL IV PUSH ONE (11:15)
[2017-11-25] MEDS ORDERED: SODIUM CHLOR 0.9% 1000 ML INJ 1,000 ML IV PRN (11:17)
[2017-11-25] MEDS ORDERED: SODIUM CHLOR 0.9% 1000 ML INJ 1,000 ML OTHER PRN ×2 (11:17)
--- NOTE | 2017-11-25 11:17 | HHI.NPPN ---
Subjective Renal Failure: Chronic, Acute, Stage IV Interval History Renal function is worse. Edema has not improved. (Shirley Carey) Review of Systems General Constitutional: Fatigue (Shirley Carey) Respiratory Lungs: SOB (Shirley Carey) Cardiovascular Cardiac: Edema (Shirley Carey) Objective Data Data Vital Signs Date Time Temp Pulse Resp B/P (MAP) Pulse Ox O2 Delivery O2 Flow Rate FiO2 11/25/17 08:08 74 11/25/17 08:05 98.3 72 20 151/79 (103) 92 11/25/17 07:30 Room Air 11/25/17 04:00 78 11/25/17 04:00 Room Air 11/25/17 04:00 98.5 75 18 149/70 (96) 94 11/25/17 00:06 98.1 74 21 131/66 (87) 94 11/25/17 00:00 Room Air 11/25/17 00:00 75 11/24/17 20:00 97.5 72 21 138/73 (94) 94 11/24/17 20:00 70 11/24/17 20:00 Room Air 11/24/17 16:00 97.6 62 17 127/65 (85) 93 11/24/17 12:00 97.8 69 20 113/59 (77) 92 (Shirley Carey) -: 11/24/17 1936 11/25/17 0442 Imaging Last 72 hours Impressions Chest X-Ray 11/23/17 1158 Signed Impressions: Service Date/Time: Thursday, November 23, 2017 12:15 - CONCLUSION: 1. Hyperaeration of lung menjivar with mild increased interstitial markings bilaterally suggestive of early pulmonary edema. 2. Small left pleural effusion. Mike Miller MD Upper Extremity Ultrasound 11/23/17 0000 Signed Impressions: Service Date/Time: Thursday, November 23, 2017 20:28 - CONCLUSION: No DVT is identified within either upper extremity. Froylan Sahu MD Upper Extremity Ultrasound 11/23/17 0000 Signed Impressions: Service Date/Time: Thursday, November 23, 2017 20:28 - CONCLUSION: Venous mapping of the upper extremities as above. Froylan Abrams MD Renal Ultrasound 11/23/17 0000 Signed Impressions: Service Date/Time: Thursday, November 23, 2017 14:32 - CONCLUSION: 1. No evidence of hydronephrosis. 2. Chronic medical renal disease. 3. Multiple Bilateral benign-appearing renal cysts. Mike Miller MD (Shirley Carey B. REACTOR OPERATOR) Physical Exam General Appearance: Well Developed, Well Nourished, No Acute Distress (Narciso Careyon B. REACTOR OPERATOR) Ears & Nose Ears & Nose Exam: Tympanic Membranes Normal (Aurelio,Shirley B. REACTOR OPERATOR) Throat Throat Exam: Oral Mucosa [place] & Moist (Aurelio,Shirley B. REACTOR OPERATOR) Neck Neck Exam: Neck Supple (Aurelio,Shirley B. REACTOR OPERATOR) Pulmonary Resp Exam: Clear Bilaterally, Decreased Bases (Aurelio,Shirley B. REACTOR OPERATOR) Cardiology CV Exam: Regular, Normal Sinus Rhythm (Narciso Careyon B. REACTOR OPERATOR) Gastrointestinal/Abdomen GI Exam: Soft, Non-Tender, Positive Bowel Movement (Narciso Careyon B. REACTOR OPERATOR) Musculoskeletal MS Exam: Joints Intact, Normal Tone (AurelioShirley B. REACTOR OPERATOR) Integumentary Skin Exam: Clear, Warm, Dry, Intact (AurelioShirley B. REACTOR OPERATOR) Extremeties Extremities Exam: Pedal Pulses Palpable, Moderate Edema, Pitting Edema, Dependent Edema (AurelioShirley B. REACTOR OPERATOR) Neurologic Neuro Exam: Alert, Awake, Oriented, Speech Clear, Moving All Extremities (AurelioShirley B. REACTOR OPERATOR) Psychiatric Psych Exam: Appropriate Responses (AurelioShirley B. 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 Baseline GFR 20. Renal function is declining, He is retaining fluid as well. Vascular to place AVF on left December 05 outpatient Needs to start HD. Not a candidate for PD. IR consulted for Permcath placement today He would like to discuss it with his and Dr. Brito prior to starting HD today. Repeat labs tomorrow. Give Lasix 80 mg IV now. (2) HTN (hypertension) ICD Codes: I10 - HTN (hypertension) Status: Chronic Plan: Hydralazine continued Procardia XL 60mg PO BID Lisinopril held in light of possible RENETTA on CKD. Coreg continues Start lasix Continue to monitor.Titrate as needed (3) Anemia ICD Codes: D64.9 - Anemia, unspecified Status: Acute Plan: Iron profile ordered May need Procrit for anemia of CKD> (4) Afib ICD Codes: I48.91 - Afib Status: Chronic Plan: on eliquis, coreg (5) History of prostate cancer ICD Codes: Z85.46 - History of prostate cancer Status: Chronic Plan: No signs of any obstruction on renal ultrasound. Continue to monitor without any Ocasio. (Shirley Carey) Plan patient was seen and examined. He is nearing the need for dialysis. (Tai Brito MD) Shirley Carey Nov 25, 2017 11:17 Tai Brito MD Nov 25, 2017 12:49
[2017-11-25] MEDS ORDERED: HEPARIN SODIUM - IV 10,000 UNITS/10 ML VIAL IV FLUSH PRN (11:30)
[2017-11-25] MEDS ORDERED: ONDANSETRON HCL 4 MG/2 ML VIAL IV PUSH PRN (11:30)
[2017-11-25] MEDS ORDERED: MANNITOL 12.5 GM/50 ML VIAL IV PRN (11:30)
[2017-11-25] MEDS ORDERED: GELATIN 12 MM/7 MM FOAM TOP PRN (11:30)
[2017-11-25] MEDS ORDERED: NITROGLYCERIN 0.4 MG SL 25 TABS/BTL SL PRN (11:30)
[2017-11-25] MEDS ORDERED: ALBUMIN 25% INJ 100 ML IV PRN (11:30)
[2017-11-25] MEDS ORDERED: ACETAMINOPHEN 325 MG TAB PO PRN (11:30)
[2017-11-25] MEDS ORDERED: diphenhydrAMINE HCL 25 MG CAP PO PRN (11:30)
[2017-11-25] MEDS ORDERED: cloNIDine HCL 0.1 MG TAB PO PRN (11:30)
--- NOTE | 2017-11-25 15:22 | HHI.PR ---
Subjective Remarks No new complaints. Objective Vitals Vital Signs Date Time Temp Pulse Resp B/P (MAP) Pulse Ox O2 Delivery O2 Flow Rate FiO2 11/25/17 14:28 76 20 164/87 (112) 11/25/17 12:05 97.8 68 20 147/87 (107) 92 11/25/17 12:04 70 11/25/17 08:08 74 11/25/17 08:05 98.3 72 20 151/79 (103) 92 11/25/17 07:30 Room Air 11/25/17 04:00 78 11/25/17 04:00 Room Air 11/25/17 04:00 98.5 75 18 149/70 (96) 94 11/25/17 00:06 98.1 74 21 131/66 (87) 94 11/25/17 00:00 Room Air 11/25/17 00:00 75 11/24/17 20:00 97.5 72 21 138/73 (94) 94 11/24/17 20:00 70 11/24/17 20:00 Room Air 11/24/17 16:00 97.6 62 17 127/65 (85) 93 Result Diagram: 11/24/17 1936 11/25/17 0442 Imaging Last Impressions Chest X-Ray 11/23/17 1158 Signed Impressions: Service Date/Time: Thursday, November 23, 2017 12:15 - CONCLUSION: 1. Hyperaeration of lung menjivar with mild increased interstitial markings bilaterally suggestive of early pulmonary edema. 2. Small left pleural effusion. Mike Miller MD Upper Extremity Ultrasound 11/23/17 0000 Signed Impressions: Service Date/Time: Thursday, November 23, 2017 20:28 - CONCLUSION: No DVT is identified within either upper extremity. Froylan Sahu MD Renal Ultrasound 11/23/17 0000 Signed Impressions: Service Date/Time: Thursday, November 23, 2017 14:32 - CONCLUSION: 1. No evidence of hydronephrosis. 2. Chronic medical renal disease. 3. Multiple Bilateral benign-appearing renal cysts. Mike Miller MD Objective Remarks GENERAL: This is a well-nourished, well-developed patient, in no apparent distress. CARDIOVASCULAR: Regular rate and rhythm without murmurs, gallops, or rubs. RESPIRATORY: Clear to auscultation. Breath sounds equal bilaterally. No wheezes , rales, or rhonchi. GASTROINTESTINAL: Abdomen soft, non-tender, nondistended. Normal active bowel sounds MUSCULOSKELETAL: 2+ LE edema NEURO: Alert & Oriented x4 to person, place, time, situation. 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 acute/chronic kidney dz stage 4 hx temp dialysis after bowel perforation 2. volume overload slightly improved. 3. acute on chronic anemia 4. afib on anticoagulation 5. htn 6. hx prostate ca/radiation 7. hx sbo/ischemic bowel perforation/resection - case d/w Dr. Brito (11/25) - appears likely that pt will need initiation of HD this admission - start trial of high dose lasix at 80mg IV BID, and observe clinical response - IF no substantial improvement with dose increase of lasix, then likely that will initiate HD in next 1-2 days - repeat BMP, mag, phos in AM - Echocardiogram (11/24) --> EF 50-55% - blood pressure readings improved since medication adjustment upon admission - DVT prophylaxis (2) Anemia ICD Codes: D64.9 - Anemia, unspecified Status: Acute Plan: - consider transfusion - have d/w Nephrology - if starting HD then would prefer to transfuse with HD - repeat CBC in AM (3) HTN (hypertension) ICD Codes: I10 - HTN (hypertension) Status: Chronic (4) Afib ICD Codes: I48.91 - Afib Status: Chronic (5) History of prostate cancer ICD Codes: Z85.46 - History of prostate cancer Status: Chronic Problem Qualifiers (1) Anemia: Qualified Codes: N18.4 - Chronic kidney disease, stage 4 (severe); D63.1 - Anemia in chronic kidney disease (2) Afib: Qualified Codes: I48.2 - Chronic atrial fibrillation Medardo James DO Nov 25, 2017 15:22
[2017-11-25] MEDS: ATORVASTATIN 10 MG TAB PO SCH (21:14)
[2017-11-26] VITALS (15 sets, daily range): BP systolic 117–151; BP diastolic 65–74; PULSE 54–86; RESP 16–18; TEMP 97.5–98.5; O2SAT 92–98
[2017-11-26 05:28] LABS: BICARBONATE 21.2 MEQ/L (21.0-32.0); CALCIUM 8.1 MG/DL (8.5-10.1); CREATININE 4.74 MG/DL (0.60-1.30); MAGNESIUM 2.1 MG/DL (1.5-2.5); PHOSPHORUS 5.2 MG/DL (2.5-4.9)
[2017-11-26 05:29] LABS: AUTOMATED NEUTROPHIL # 4.3 TH/MM3 (1.8-7.7); BASOPHIL # 0.1 TH/MM3 (0-0.2); EOSINOPHIL # 0.4 TH/MM3 (0-0.4); EOSINOPHIL % 6.2 % (0.0-4.0); HEMATOCRIT 22.4 % (39.0-51.0); HEMOGLOBIN 7.6 GM/DL (13.0-17.0); LYMPH % 12.7 % (9.0-44.0); LYMPHOCYTE # 0.8 TH/MM3 (1.0-4.8); MEAN CELL VOLUME 89.8 FL (80.0-100.0); MEAN CORPUSCULAR HEMOGLOBIN 30.5 PG (27.0-34.0); MEAN PLATELET VOLUME 8.1 FL (7.0-11.0); MONO % 10.5 % (0.0-8.0); MONOCYTE # 0.7 TH/MM3 (0-0.9); NEUT % 69.6 % (16.0-70.0); PLATELET COUNT 237 TH/MM3 (150-450); RED BLOOD COUNT 2.49 MIL/MM3 (4.50-5.90); RED CELL DISTRIBUTION WIDTH 16.5 % (11.6-17.2); WHITE BLOOD COUNT 6.2 TH/MM3 (4.0-11.0)
[2017-11-26] MEDS: NIFEdipine 60 MG SUSTAINED RELEASE TAB PO SCH ×2 (08:13→21:25)
[2017-11-26] MEDS: CHOLECALCIFEROL (VIT D3) 1000 UNIT TAB PO SCH (08:13)
[2017-11-26] MEDS: hydrALAZINE HCL 50 MG TAB PO SCH ×3 (08:13→17:31)
[2017-11-26] MEDS: ASPIRIN 81 MG CHEW TAB CHEW SCH (08:13)
[2017-11-26] MEDS: FUROSEMIDE 40 MG/4 ML VIAL IV PUSH SCH ×2 (08:14→17:32)
[2017-11-26] MEDS: CARVEDILOL 12.5 MG TAB PO SCH ×2 (08:14→21:25)
[2017-11-26] MEDS: ALLOPURINOL 100 MG TAB PO SCH (08:14)
[2017-11-26] MEDS: IRON SUCROSE INJ 100 MG in SODIUM CHLORIDE 0.9% INJ 100 ML IV SCH (08:32)
--- NOTE | 2017-11-26 08:46 | HHI.NPPN ---
Subjective Renal Failure: Chronic, Acute, Stage IV Interval History patient is comfortable. Non oliguric. Renal function is slightly better. Edema also appears to be slightly better. Review of Systems General Constitutional: Fatigue Respiratory Lungs: SOB Cardiovascular Cardiac: Edema Objective Data Data Vital Signs Date Time Temp Pulse Resp B/P (MAP) Pulse Ox O2 Delivery O2 Flow Rate FiO2 11/26/17 05:41 97.5 77 18 151/73 (99) 92 11/26/17 04:10 Room Air 11/26/17 04:00 82 11/26/17 00:00 Room Air 11/26/17 00:00 60 11/25/17 23:17 97.9 71 18 139/70 (93) 95 11/25/17 20:00 78 11/25/17 20:00 Room Air 11/25/17 19:47 97.8 78 18 132/91 (105) 95 11/25/17 18:22 72 147/75 (99) 11/25/17 16:23 64 11/25/17 16:05 98.2 76 19 152/77 (102) 94 11/25/17 14:28 76 20 164/87 (112) 11/25/17 12:05 97.8 68 20 147/87 (107) 92 11/25/17 12:04 70 -: 11/26/17 0445 11/26/17 0445 Physical Exam General Appearance: Well Developed, Well Nourished, No Acute Distress Ears & Nose Ears & Nose Exam: Tympanic Membranes Normal Throat Throat Exam: Oral Mucosa [employer] & Moist Neck Neck Exam: Neck Supple Pulmonary Resp Exam: Clear Bilaterally, Decreased Bases Cardiology CV Exam: Regular, Normal Sinus Rhythm Gastrointestinal/Abdomen GI Exam: Soft, Non-Tender, Positive Bowel Movement Musculoskeletal MS Exam: Joints Intact, Normal Tone Integumentary Skin Exam: Clear, Warm, Dry, Intact Extremeties Extremities Exam: Pedal Pulses Palpable, Moderate Edema, Pitting Edema, Dependent Edema Neurologic Neuro Exam: Alert, Awake, Oriented, Speech Clear, Moving All Extremities Psychiatric Psych Exam: Appropriate Responses Assessment/Plan Discussed Condition With: Patient, Spouse Assessment Summary: RENETTA/Acute Renal Failure, Anemia of CKD, Fluid/Volume Overload, Hypertension Problem List: (1) 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 Baseline GFR 20. Renal function has declined, he presents with volume overload. Creatinine is slightly better. Apparently he was placed on Minoxidil by his pet feeder on the 31 of October. Minoxidil could have promoted fluid and salt retention and increased renal vein pressure, causing RENETTA. Continue diuresis. If renal function worsens, we will have to initiate dialysis. (2) HTN (hypertension) ICD Codes: I10 - HTN (hypertension) Status: Chronic Plan: Hydralazine continued Procardia XL 60mg PO BID Lisinopril held in light of possible RENETTA on CKD. Coreg continues Continue Lasix. May need to reduce the dose of Procardia as it can also cause edema (but not weight gain). (3) Anemia ICD Codes: D64.9 - Anemia, unspecified Status: Acute Plan: Evidence of iron deficiency. Start IV Venofer. (4) Afib ICD Codes: I48.91 - Afib Status: Chronic Plan: on eliquis, coreg (5) History of prostate cancer ICD Codes: Z85.46 - History of prostate cancer Status: Chronic Plan: No signs of any obstruction on renal ultrasound. Continue to monitor without any Ocasio. Problem Qualifiers (1) Anemia: Qualified Codes: N18.4 - Chronic kidney disease, stage 4 (severe); D63.1 - Anemia in chronic kidney disease Tai Brito MD Nov 26, 2017 08:46
[2017-11-26] MEDS: APIXABAN 2.5 MG TABLET PO SCH ×2 (09:44→21:25)
[2017-11-26 15:02] LABS: HEPATITIS A AB IGM NEGATIVE (NEGATIVE); HEPATITIS B CORE AB IGM NEGATIVE (NEGATIVE)
--- NOTE | 2017-11-26 15:41 | HHI.PR ---
Subjective Remarks No new complaints. Pt denies chest pain, palpitations, or worsening SOB. Objective Vitals Vital Signs Date Time Temp Pulse Resp B/P (MAP) Pulse Ox O2 Delivery O2 Flow Rate FiO2 11/26/17 12:15 93 21 11/26/17 11:58 65 11/26/17 11:48 60 11/26/17 08:04 74 11/26/17 08:02 98.4 70 18 145/70 (95) 93 11/26/17 08:00 Room Air 11/26/17 05:41 97.5 77 18 151/73 (99) 92 11/26/17 04:10 Room Air 11/26/17 04:00 82 11/26/17 00:00 Room Air 11/26/17 00:00 60 11/25/17 23:17 97.9 71 18 139/70 (93) 95 11/25/17 20:00 78 11/25/17 20:00 Room Air 11/25/17 19:47 97.8 78 18 132/91 (105) 95 11/25/17 18:22 72 147/75 (99) 11/25/17 16:23 64 11/25/17 16:05 98.2 76 19 152/77 (102) 94 Result Diagram: 11/26/17 0445 11/26/17 0445 Imaging Last Impressions Chest X-Ray 11/23/17 1158 Signed Impressions: Service Date/Time: Thursday, November 23, 2017 12:15 - CONCLUSION: 1. Hyperaeration of lung menjivar with mild increased interstitial markings bilaterally suggestive of early pulmonary edema. 2. Small left pleural effusion. Mike Miller MD Upper Extremity Ultrasound 11/23/17 0000 Signed Impressions: Service Date/Time: Thursday, November 23, 2017 20:28 - CONCLUSION: No DVT is identified within either upper extremity. Froylan Sahu MD Renal Ultrasound 11/23/17 0000 Signed Impressions: Service Date/Time: Thursday, November 23, 2017 14:32 - CONCLUSION: 1. No evidence of hydronephrosis. 2. Chronic medical renal disease. 3. Multiple Bilateral benign-appearing renal cysts. Mike Miller MD Objective Remarks GENERAL: This is a well-nourished, well-developed patient, in no apparent distress. CARDIOVASCULAR: Regular rate and rhythm without murmurs, gallops, or rubs. RESPIRATORY: Clear to auscultation. Breath sounds equal bilaterally. No wheezes , rales, or rhonchi. GASTROINTESTINAL: Abdomen soft, non-tender, nondistended. Normal active bowel sounds MUSCULOSKELETAL: 2+ LE edema NEURO: Alert & Oriented x4 to person, place, time, situation. 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 acute/chronic kidney dz stage 4 hx temp dialysis after bowel perforation 2. volume overload slightly improved. 3. acute on chronic anemia 4. afib on anticoagulation 5. htn 6. hx prostate ca/radiation 7. hx sbo/ischemic bowel perforation/resection - appears likely that pt will need initiation of HD this admission - start trial of high dose lasix at 80mg IV BID (11/25), and observe clinical response - IF no substantial improvement with dose increase of lasix, then likely that will initiate HD in next 1-2 days - Case again d/w Dr. Brito (11/26). continue high dose lasix and observe - repeat BMP, mag, AM - Echocardiogram (11/24) --> EF 50-55% - blood pressure readings improved since medication adjustment upon admission - DVT prophylaxis (2) Afib ICD Codes: I48.91 - Afib Status: Chronic Plan: - telemetry (11/26) showed NSVT and periods of bradycardia with causes. Currently telemetry - decrease coreg 12.5mg BID - Echocardiogram (11/24) --> EF 55-60%, moderate TR - Case d/w Dr. Tay Robles (11/26). He will consult - obtain Lexiscan (3) Anemia ICD Codes: D64.9 - Anemia, unspecified Status: Acute Plan: - consider transfusion - have d/w Nephrology - if starting HD then would prefer to transfuse with HD - repeat CBC in AM (4) HTN (hypertension) ICD Codes: I10 - HTN (hypertension) Status: Chronic (5) History of prostate cancer ICD Codes: Z85.46 - History of prostate cancer Status: Chronic Problem Qualifiers (1) Afib: Qualified Codes: I48.2 - Chronic atrial fibrillation (2) Anemia: Qualified Codes: N18.4 - Chronic kidney disease, stage 4 (severe); D63.1 - Anemia in chronic kidney disease Medardo James DO Nov 26, 2017 15:41
[2017-11-26] MEDS ORDERED: CARVEDILOL 3.125 MG TAB PO SCH (21:00)
[2017-11-26] MEDS: ATORVASTATIN 10 MG TAB PO SCH (21:25)
[2017-11-27] VITALS (14 sets, daily range): BP systolic 144–160; BP diastolic 73–84; PULSE 67–87; RESP 14–20; TEMP 96.2–98.4; O2SAT 92–95
[2017-11-27 06:36] LABS: ALBUMIN 2.5 GM/DL (3.4-5.0); BICARBONATE 21.7 MEQ/L (21.0-32.0); CALCIUM 7.9 MG/DL (8.5-10.1); CREATININE 4.79 MG/DL (0.60-1.30)
[2017-11-27] MEDS: CARVEDILOL 12.5 MG TAB PO SCH ×2 (09:00→20:32)
[2017-11-27] MEDS: APIXABAN 2.5 MG TABLET PO SCH ×2 (09:59→20:32)
[2017-11-27] MEDS: CHOLECALCIFEROL (VIT D3) 1000 UNIT TAB PO SCH (10:00)
[2017-11-27] MEDS: NIFEdipine 60 MG SUSTAINED RELEASE TAB PO SCH ×2 (10:00→20:32)
[2017-11-27] MEDS: ALLOPURINOL 100 MG TAB PO SCH (10:00)
[2017-11-27] MEDS: hydrALAZINE HCL 50 MG TAB PO SCH ×3 (10:00→18:07)
[2017-11-27] MEDS: ASPIRIN 81 MG CHEW TAB CHEW SCH (10:00)
[2017-11-27] MEDS: FUROSEMIDE 40 MG/4 ML VIAL IV PUSH SCH ×2 (10:01→18:08)
[2017-11-27] MEDS: IRON SUCROSE INJ 100 MG in SODIUM CHLORIDE 0.9% INJ 100 ML IV SCH (10:01)
--- NOTE | 2017-11-27 11:06 | HHI.NPPN ---
Subjective Renal Failure: Chronic, Acute, Stage IV Interval History Renal function is stable. Edema and shortness of breath have improved. (Shirley Carey) Review of Systems General Constitutional: Fatigue (Shirley Carey) Respiratory Lungs: SOB (Shirley Carey) Cardiovascular Cardiac: Edema (Shirley Carey) Objective Data Data Vital Signs Date Time Temp Pulse Resp B/P (MAP) Pulse Ox O2 Delivery O2 Flow Rate FiO2 11/27/17 09:56 92 Nasal Cannula 2.00 11/27/17 08:03 98.2 71 18 159/78 (105) 92 11/27/17 04:57 98.3 71 14 158/84 (108) 94 11/27/17 03:59 Room Air 11/27/17 03:52 70 11/27/17 00:43 98.1 67 16 151/81 (104) 95 11/27/17 00:00 Room Air 11/27/17 00:00 68 11/26/17 20:51 97.6 72 16 141/70 (93) 94 11/26/17 20:00 Room Air 11/26/17 20:00 85 11/26/17 17:29 86 140/74 (96) 11/26/17 17:23 94 Nasal Cannula 2.00 11/26/17 16:02 98.5 64 18 137/65 (89) 94 11/26/17 15:39 54 11/26/17 12:15 93 21 11/26/17 12:02 98.2 66 18 117/66 (83) 93 11/26/17 11:58 65 11/26/17 11:48 60 (Shirley Carey) -: 11/26/17 0445 11/27/17 0540 Physical Exam General Appearance: Well Developed, Well Nourished, No Acute Distress, Comfortable (Shirley Carey) Ears & Nose Ears & Nose Exam: Tympanic Membranes Normal (Shirley Carey) Throat Throat Exam: Oral Mucosa [place] & Moist (Shirley Carey) Neck Neck Exam: Neck Supple (Shirley Carey) Pulmonary Resp Exam: Clear Bilaterally, Decreased Bases (Shirley Carey. DIVE SUPERVISOR) Cardiology CV Exam: Regular, Normal Sinus Rhythm (Shirley Carey. DIVE SUPERVISOR) Gastrointestinal/Abdomen GI Exam: Soft, Non-Tender, Positive Bowel Movement (Shirley Carey DIVE SUPERVISOR) Musculoskeletal MS Exam: Joints Intact, Normal Tone (Shirley Carey. DIVE SUPERVISOR) Integumentary Skin Exam: Clear, Warm, Dry, Intact (Shirley Carey DIVE SUPERVISOR) Extremeties Extremities Exam: Pedal Pulses Palpable, Trace Edema, Dependent Edema (Shirley Carey B. DIVE SUPERVISOR) Neurologic Neuro Exam: Alert, Awake, Oriented, Speech Clear, Moving All Extremities (Shirley Carey. DIVE SUPERVISOR) Psychiatric Psych Exam: Appropriate Responses (Shirley Carey DIVE SUPERVISOR) Assessment/Plan Discussed Condition With: Patient, Spouse Assessment Summary: RENETTA/Acute Renal Failure, Anemia of CKD, Fluid/Volume Overload, Hypertension Problem List: (1) 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 Baseline GFR 20. Renal function has declined, the etiology is not completely clear Recently started on Minoxidil which could have promoted fluid and salt retention and increased renal vein pressure, causing RENETTA. Renal function is stable today Continue Lasix 80 mg IV BID for one more day, reevaluate tomorrow No immediate need for HD, symptoms have improved. Repeat labs tomorrow. December 05 has appt for AVF creation with Dr. Shaw. May be able to do it this admission (next week) if still here. (2) HTN (hypertension) ICD Codes: I10 - HTN (hypertension) Status: Chronic Plan: Hydralazine continued Procardia XL 60mg PO BID Lisinopril held in light of possible RENETTA on CKD. Coreg continues Continue Lasix. May need to reduce the dose of Procardia as it can also cause edema (but not weight gain). (3) Anemia ICD Codes: D64.9 - Anemia, unspecified Status: Acute Plan: Evidence of iron deficiency. On IV Venofer. Consider starting Epogen (4) Afib ICD Codes: I48.91 - Afib Status: Chronic Plan: on eliquis, coreg (5) History of prostate cancer ICD Codes: Z85.46 - History of prostate cancer Status: Chronic Plan: No signs of any obstruction on renal ultrasound. Continue to monitor without any Ocasio. (Shilrey Carey) Plan patient was seen and examined. Agree with above assessment and plan. (Tai Brito MD) Problem Qualifiers (1) Anemia: Qualified Codes: N18.4 - Chronic kidney disease, stage 4 (severe); D63.1 - Anemia in chronic kidney disease (2) Afib: Qualified Codes: I48.2 - Chronic atrial fibrillation Shirley Carey Nov 27, 2017 11:06 Tai Brito MD Nov 28, 2017 10:04
--- NOTE | 2017-11-27 11:32 | RADRPT ---
EXAM DATE/TIME: 11/27/2017 10:50 [facility] COMPARISON: CHEST PA & LAT, November 23, 2017, 12:15. INDICATIONS : Congestive heart failure. MEDICAL HISTORY : Hypertension. Congestive heart failure. Atrial fibrillation. Renal failure. ENCOUNTER: Subsequent ACUITY: 4 - 6 days PAIN SCORE: 0/10 LOCATION: chest FINDINGS: There is minimal blunting of the left costophrenic sulcus. Heart is minimally enlarged. Mild inters titial edema is present. There is no consolidation consolidation. The portion of the bony skeleton v isualized is unremarkable. CONCLUSION: Mild congestive failure probable trace fluid on the left Austin Chu MD FACR on November 27, 2017 at 11:30 Board Certified Radiologist. This report was verified electronically.
--- NOTE | 2017-11-27 11:55 | MB ---
cc: Tay Robles MD DATE OF CONSULT: HISTORY OF PRESENT ILLNESS: This is a 82-year-old gentleman who has been in the hospital for shortness of breath and heart failure. He has a long history of chronic atrial fibrillation as well as CKD. His atrial fibrillation has been stable over the years but has had rather significant hypertension. He has been followed by Dr. Ramirez and in the first of October she began minoxidil to help treat his intractable hypertension. Since that time he has noted increasing fluid retention and swelling and came to the hospital because of shortness of breath. 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 No chest pain has been present. His kidney function has been relatively stable with creatinine of 4.7. He was initially going to have a Vas-Cath inserted but this was cancelled by his reinforcing steel erector who did not feel that he was ready for dialysis as of yet. On his return to the room he was noted to have a run of nonsustained ventricular tachycardia and we have been asked to see him. No chest pain has been present. He has been started on furosemide 80 mg twice daily with a good diuresis over the past 24-hours and feels much better. Electrolytes were drawn yesterday and were essentially normal. His electrocardiogram shows no acute ST or T-wave changes with rather nonspecific T-wave flattening in the lateral leads and sinus rhythm. He currently feels well and much improved. He has noted since his hospitalization that his peripheral edema has improved dramatically. PAST MEDICAL HISTORY: Otherwise significant for hypertension and renal disease as noted above PHYSICAL EXAMINATION: GENERAL: He is awake and alert and in no distress. LUNGS: His lungs are clear. CARDIOVASCULAR: Reveals a regular rate and rhythm. There is no significant murmur. No gallop is noted. EXTREMITIES: +1 pedal edema. ASSESSMENT: The patient has had short run of ventricular tachycardia. We have ordered a Lexiscan for further evaluation. A cardiac catheterization could be considered but will be at the risk of worsening his renal failure and precipitating dialysis. If his Lexiscan is normal we would continue his medical regimen as is and at this point in time with his heart rate under better control, will consider re-increasing his Coreg back to 25 mg twice a day. His blood pressure is currently 159/78. Will add a small dose of terazosin to help further control his blood pressure. MD MARY Prasad/MARCOS/laurie , 10:48 AM , 11:19 AM
[2017-11-27] MEDS ORDERED: REGADENOSON INJ 0.4 MG/5 ML SYR IV ONE (14:36)
--- NOTE | 2017-11-27 16:17 | RADRPT ---
EXAM DATE/TIME: 11/27/2017 14:29 [place] COMPARISON: No previous studies available for comparison. INDICATIONS : Shortness of breath for one day. Abnormal EKG. Atrial fibrillation. DOSE: 29.1 mCi Tc99m Myoview at stress. 8.5 mCi Tc99m Myoview at rest. 0.4 mg Lexiscan STRESS SYMPTOMS: Short of breath. EJECTION FRACTION: 44% MEDICAL HISTORY : Hypertension. Carcinoma, prostate. SURGICAL HISTORY : Inguinal hernia repair. ENCOUNTER: Initial ACUITY: 1 day PAIN SCALE: 0/10 LOCATION: chest TECHNIQUE: The patient underwent pharmacologic stress with infusion of prescribed dose. Continuous ECG tracing was monitored during stress. Gated SPECT imaging was performed after stress and conventional SPECT i maging was performed at rest. The examination was performed on a SPECT/CT scanner, both attenuation and non-corrected datasets were reviewed. FINDINGS: DISTRIBUTION: The maximum perfused segment at stress is in the inferior wall. PERFUSION STUDY: The pattern of perfusion at stress is within normal limits. GATED STUDY: There is mild global hypokinesis with ejection fraction of 44% CONCLUSION: Mild global hypokinesis. No reversible ischemic segments are identified. RISK CATEGORY: Intermediate (1-3% Annual Mortality Rate) Tay Morelos MD on November 27, 2017 at 16:15 Board Certified Radiologist. This report was verified electronically.
--- NOTE | 2017-11-27 18:47 | HHI.PR ---
Subjective Remarks No new complaints. Objective Vitals Vital Signs Date Time Temp Pulse Resp B/P (MAP) Pulse Ox O2 Delivery O2 Flow Rate FiO2 11/27/17 16:24 97.7 70 18 154/77 (102) 95 11/27/17 12:20 97.6 74 18 155/73 (100) 94 11/27/17 12:00 72 11/27/17 09:56 92 Nasal Cannula 2.00 11/27/17 08:03 98.2 71 18 159/78 (105) 92 11/27/17 08:00 96 Room Air 21 11/27/17 08:00 74 11/27/17 04:57 98.3 71 14 158/84 (108) 94 11/27/17 03:59 Room Air 11/27/17 03:52 70 11/27/17 00:43 98.1 67 16 151/81 (104) 95 11/27/17 00:00 Room Air 11/27/17 00:00 68 11/26/17 20:51 97.6 72 16 141/70 (93) 94 11/26/17 20:00 Room Air 11/26/17 20:00 85 11/27/17 11/27/17 11/28/17 15:00 23:00 07:00 Intake Total 240 ml Output Total 1500 ml Balance -1260 ml Intake Oral 240 ml Output Urine Total 1500 ml # Bowel Movements 0 Result Diagram: 11/26/17 0445 11/27/17 0540 Imaging Last Impressions Myocardial Perfusion Scan Nuc Med 11/27/17 0000 Signed Impressions: Service Date/Time: Monday, November 27, 2017 14:29 - CONCLUSION: Mild global hypokinesis. No reversible ischemic segments are identified. RISK CATEGORY: Intermediate (1-3%% Annual Mortality Rate) Tay Morelos MD Chest X-Ray 11/27/17 0000 Signed Impressions: Service Date/Time: Monday, November 27, 2017 10:50 - CONCLUSION: Mild congestive failure probable trace fluid on the left Austin Chu MD FACR Upper Extremity Ultrasound 11/23/17 0000 Signed Impressions: Service Date/Time: Thursday, November 23, 2017 20:28 - CONCLUSION: No DVT is identified within either upper extremity. Froylan Sahu MD Renal Ultrasound 11/23/17 0000 Signed Impressions: Service Date/Time: Thursday, November 23, 2017 14:32 - CONCLUSION: 1. No evidence of hydronephrosis. 2. Chronic medical renal disease. 3. Multiple Bilateral benign-appearing renal cysts. Mike Miller MD Objective Remarks GENERAL: This is a well-nourished, well-developed patient, in no apparent distress. CARDIOVASCULAR: Regular rate and rhythm without murmurs, gallops, or rubs. RESPIRATORY: Clear to auscultation. Breath sounds equal bilaterally. No wheezes , rales, or rhonchi. GASTROINTESTINAL: Abdomen soft, non-tender, nondistended. Normal active bowel sounds MUSCULOSKELETAL: 1+ LE edema NEURO: Alert & Oriented x4 to person, place, time, situation. 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 acute/chronic kidney dz stage 4 hx temp dialysis after bowel perforation 2. volume overload slightly improved. 3. acute on chronic anemia 4. afib on anticoagulation 5. htn 6. hx prostate ca/radiation 7. hx sbo/ischemic bowel perforation/resection - appears likely that pt will need initiation of HD this admission - start trial of high dose lasix at 80mg IV BID (11/25), and observe clinical response - IF no substantial improvement with dose increase of lasix, then likely that will initiate HD in next 1-2 days - Case again d/w Dr. Brito (11/26). continue high dose lasix and observe - repeat BMP, mag, AM - will need to discuss case further with Nephrology, Dr. Brito - Echocardiogram (11/24) --> EF 50-55% - blood pressure readings improved since medication adjustment upon admission - DVT prophylaxis (2) Afib ICD Codes: I48.91 - Afib Status: Chronic Plan: - telemetry (11/26) showed NSVT and periods of bradycardia with causes. Currently telemetry - decrease coreg 12.5mg BID - Echocardiogram (11/24) --> EF 55-60%, moderate TR - Case d/w Dr. Tay Robles (11/26). - Lexiscan (11/27) --> mild hypokinesis. Will need to discuss results with Cardiology & Nephrology. (3) Anemia ICD Codes: D64.9 - Anemia, unspecified Status: Acute Plan: - consider transfusion - have d/w Nephrology - if starting HD then would prefer to transfuse with HD - repeat CBC in AM (4) HTN (hypertension) ICD Codes: I10 - HTN (hypertension) Status: Chronic (5) History of prostate cancer ICD Codes: Z85.46 - History of prostate cancer Status: Chronic Problem Qualifiers (1) Afib: Qualified Codes: I48.2 - Chronic atrial fibrillation (2) Anemia: Qualified Codes: N18.4 - Chronic kidney disease, stage 4 (severe); D63.1 - Anemia in chronic kidney disease Medardo James DO Nov 27, 2017 18:47
[2017-11-27] MEDS: ATORVASTATIN 10 MG TAB PO SCH (20:32)
[2017-11-27] MEDS: TERAZOSIN HCL 1 MG CAP PO SCH (20:32)
[2017-11-27] MEDS: SODIUM CHLORIDE 0.9% FLUSH 10 ML FLUSH IVF PRN (20:32)
[2017-11-28] VITALS (9 sets, daily range): BP systolic 120–154; BP diastolic 65–96; PULSE 60–80; RESP 18–20; TEMP 97.5–98.3; O2SAT 92–98
--- NOTE | 2017-11-28 08:34 | PD.CARD.PN ---
Subjective Subjective Remarks No complaints Objective Medications Current Medications Medications (Trade) Dose Ordered Sig/Coral Route Start Time Stop Time Status Last Admin (NS Flush) 2 ml UNSCH PRN IVF 11/23/17 12:00 11/27/17 20:32 (Zyloprim) 100 mg DAILY PO 11/24/17 09:00 11/27/17 10:00 (Xanax) 0.5 mg HS PRN PO 11/23/17 14:15 11/24/17 00:27 (Eliquis) 2.5 mg BID PO 11/23/17 21:00 11/27/17 20:32 (Aspirin Chew) 81 mg DAILY CHEW 11/24/17 09:00 11/27/17 10:00 (Lipitor) 10 mg HS PO 11/23/17 21:00 11/27/17 20:32 (Apresoline) 50 mg TID PO 11/23/17 18:00 11/27/17 18:07 (Catapres) 0.1 mg Q6H PRN PO 11/23/17 15:00 11/23/17 17:23 (Procardia Xl) 60 mg Q12HR PO 11/23/17 21:00 11/27/17 20:32 (Vitamin D3) 1,000 units DAILY PO 11/25/17 10:00 11/27/17 10:00 Sodium Chloride 1,000 ml @ 0 mls/hr Q0M PRN OTHER 11/25/17 11:17 (Heparin Inj) 8,000 units UNSCH PRN IV FLUSH 11/25/17 11:30 Sodium Chloride 1,000 ml @ 200 mls/hr Q5H PRN IV 11/25/17 11:17 Sodium Chloride 1,000 ml @ 0 mls/hr Q0M PRN OTHER 11/25/17 11:17 (Mannitol Inj) 12.5 gm UNSCH PRN IV 11/25/17 11:30 Albumin Human 100 ml @ 60 mls/hr UNSCH PRN IV 11/25/17 11:30 (NS Flush) 5 ml UNSCH PRN IV FLUSH 11/25/17 11:30 (Heparin Inj) UNSCH PRN .XX 11/25/17 11:30 (Gentamicin Inj) 20 mg UNSCH PRN OTHER 11/25/17 11:30 (Zofran Inj) 4 mg UNSCH PRN IV PUSH 11/25/17 11:30 (Tylenol) 650 mg UNSCH PRN PO 11/25/17 11:30 (Benadryl) 25 mg UNSCH PRN PO 11/25/17 11:30 (Nitrostat Sl) 0.4 mg UNSCH PRN SL 11/25/17 11:30 (Catapres) 0.1 mg UNSCH PRN PO 11/25/17 11:30 (Epogen Inj) 10,000 units UNSCH PRN IV PUSH 11/25/17 11:30 (Gelfoam 12 Mm/7 Mm Top) 1 foam UNSCH PRN TOP 11/25/17 11:30 (Lasix Inj) 80 mg BID@09,18 IV PUSH 11/25/17 18:00 11/27/17 18:08 Iron Sucrose 100 mg/Sodium Chloride 105 ml @ 105 mls/hr DAILY IV 11/26/17 09:00 11/28/17 09:59 11/27/17 10:01 (Coreg) 12.5 mg Q12HR PO 11/26/17 21:00 11/27/17 20:32 (Hytrin) 1 mg HS PO 11/27/17 21:00 11/27/17 20:32 Vital Signs / I&O Vital Signs Date Time Temp Pulse Resp B/P (MAP) Pulse Ox O2 Delivery O2 Flow Rate FiO2 11/28/17 04:00 Room Air 11/28/17 04:00 70 11/28/17 04:00 98.3 69 20 141/96 (111) 92 11/28/17 00:00 Room Air 11/28/17 00:00 71 11/27/17 23:10 98.4 74 20 144/74 (97) 94 11/27/17 21:53 94 11/27/17 20:01 80 11/27/17 20:00 Room Air 11/27/17 20:00 96.2 87 20 160/78 (105) 93 11/27/17 16:24 97.7 70 18 154/77 (102) 95 11/27/17 12:20 97.6 74 18 155/73 (100) 94 11/27/17 12:00 72 11/27/17 09:56 92 Nasal Cannula 2.00 I/O 2/28/11/27/17 11/27/17 11/28/17 11/28/17 11/28/17 06:59 14:59 22:59 06:59 14:59 22:59 Intake Total 240 ml 0 ml Output Total 1100 ml 1500 ml 1350 ml Balance -1100 ml -1260 ml -1350 ml Intake Oral 240 ml 0 ml Output Urine Total 1100 ml 1500 ml 1350 ml # Voids 3 # Bowel Movements 0 0 Assessment and Plan Assessment and Plan Patient with recurrent runs of V tach. Lexiscan unremarkable but in view of recurrent VT feel we should be sure no occult CAD exists. Discussed with patient and as well as risk of renal failure and they are agreeable. Will hydrate overnight and plan for Saturday AM 830. Tay Robles MD Nov 28, 2017 08:34
[2017-11-28] MEDS: APIXABAN 2.5 MG TABLET PO SCH ×2 (09:00→21:00)
[2017-11-28] MEDS: ASPIRIN 81 MG CHEW TAB CHEW SCH (09:00)
[2017-11-28] MEDS: CARVEDILOL 12.5 MG TAB PO SCH ×2 (09:42→21:36)
[2017-11-28] MEDS: FUROSEMIDE 40 MG/4 ML VIAL IV PUSH SCH ×2 (09:42→17:29)
[2017-11-28] MEDS: IRON SUCROSE INJ 100 MG in SODIUM CHLORIDE 0.9% INJ 100 ML IV SCH (09:42)
[2017-11-28] MEDS: ALLOPURINOL 100 MG TAB PO SCH (09:42)
[2017-11-28] MEDS: hydrALAZINE HCL 50 MG TAB PO SCH ×3 (09:42→17:29)
[2017-11-28] MEDS: NIFEdipine 60 MG SUSTAINED RELEASE TAB PO SCH ×2 (09:42→21:34)
[2017-11-28] MEDS: CHOLECALCIFEROL (VIT D3) 1000 UNIT TAB PO SCH (09:43)
[2017-11-28] MEDS: SODIUM CHLORIDE 0.9% FLUSH 10 ML FLUSH IVF PRN (09:43)
[2017-11-28 11:06] LABS: ALBUMIN 2.6 GM/DL (3.4-5.0); BICARBONATE 23.6 MEQ/L (21.0-32.0); CREATININE 4.79 MG/DL (0.60-1.30); PHOSPHORUS 4.3 MG/DL (2.5-4.9)
--- NOTE | 2017-11-28 11:35 | HHI.NPPN ---
Subjective Renal Failure: Chronic, Acute, Stage IV Interval History Renal function is stable. He is scheduled for cardiac cath tomorrow AM. (Shirley Carey) Review of Systems General Constitutional: Fatigue (Shirley Carey) Respiratory Lungs: SOB (Shirley Carey) Cardiovascular Cardiac: Edema (Shirley Carey) Objective Data Data 11/28/17 11/29/17 19:00 07:00 Intake Total 105 ml Balance 105 ml IV Total 105 ml Vital Signs Date Time Temp Pulse Resp B/P (MAP) Pulse Ox O2 Delivery O2 Flow Rate FiO2 11/28/17 08:56 Room Air 11/28/17 08:03 73 11/28/17 08:03 98.2 70 18 120/69 (86) 96 11/28/17 04:00 Room Air 11/28/17 04:00 70 11/28/17 04:00 98.3 69 20 141/96 (111) 92 11/28/17 00:00 Room Air 11/28/17 00:00 71 11/27/17 23:10 98.4 74 20 144/74 (97) 94 11/27/17 21:53 94 11/27/17 20:01 80 11/27/17 20:00 Room Air 11/27/17 20:00 96.2 87 20 160/78 (105) 93 11/27/17 16:24 97.7 70 18 154/77 (102) 95 11/27/17 12:20 97.6 74 18 155/73 (100) 94 11/27/17 12:00 72 (Shirley Carey) -: 11/26/17 0445 11/28/17 1025 Imaging Last 72 hours Impressions Myocardial Perfusion Scan Nuc Med 11/27/17 0000 Signed Impressions: Service Date/Time: Monday, November 27, 2017 14:29 - CONCLUSION: Mild global hypokinesis. No reversible ischemic segments are identified. RISK CATEGORY: Intermediate (1-3%% Annual Mortality Rate) Tay Morelos MD Chest X-Ray 11/27/17 0000 Signed Impressions: Service Date/Time: Monday, November 27, 2017 10:50 - CONCLUSION: Mild congestive failure probable trace fluid on the left Austin Chu MD FACR (Shirley Carey) Physical Exam General Appearance: Well Developed, Well Nourished, No Acute Distress, Comfortable (Shirley Carey B. TRANSPORTATION SECURITY SCREENER) Ears & Nose Ears & Nose Exam: Tympanic Membranes Normal (Shirley Carey B. TRANSPORTATION SECURITY SCREENER) Throat Throat Exam: Oral Mucosa Lamoni & Moist (Shirley Carey B. TRANSPORTATION SECURITY SCREENER) Neck Neck Exam: Neck Supple (Shirley Carey B. TRANSPORTATION SECURITY SCREENER) Pulmonary Resp Exam: Clear Bilaterally, Decreased Bases (Shirley Carey B. TRANSPORTATION SECURITY SCREENER) Cardiology CV Exam: Regular, Normal Sinus Rhythm (Shirley Carey B. TRANSPORTATION SECURITY SCREENER) Gastrointestinal/Abdomen GI Exam: Soft, Non-Tender, Positive Bowel Movement (Shirley Carey B. TRANSPORTATION SECURITY SCREENER) Musculoskeletal MS Exam: Joints Intact, Normal Tone (Shirley Carey B. TRANSPORTATION SECURITY SCREENER) Integumentary Skin Exam: Clear, Warm, Dry, Intact (Shirley Carey B. TRANSPORTATION SECURITY SCREENER) Extremeties Extremities Exam: Pedal Pulses Palpable, Trace Edema, Dependent Edema (Shirley Carey B. TRANSPORTATION SECURITY SCREENER) Neurologic Neuro Exam: Alert, Awake, Oriented, Speech Clear, Moving All Extremities (Shirley Carey B. 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 Baseline GFR 20. Renal function has declined, the etiology is not completely clear Recently started on Minoxidil which could have promoted fluid and salt retention and increased renal vein pressure, causing RENETTA. Renal function has been stable. Has been having runs of NSVT, due for cardiac cath in AM. Preemptively give 0.9% NS @ 50 cc/hr beginning tonight. He most likely will be dialysis dependent after cardiac cath. Attempt to reduce dye exposure in procedure. . NPO for vascath today. HD tomorrow immediately after cath. Repeat Saturday. Follow labs. Tentatively will plan for AVF creatiion on Saturday prior to discharge. Will go to [place] for HD at discharge, plans in process. On Lasix 80 BID IV. (2) HTN (hypertension) ICD Codes: I10 - HTN (hypertension) Status: Chronic Plan: Hydralazine continued Procardia XL 60mg PO BID Lisinopril held in light of possible RENETTA on CKD. Coreg continues Continue Lasix. May need to reduce the dose of Procardia as it can also cause edema (but not weight gain). (3) Anemia ICD Codes: D64.9 - Anemia, unspecified Status: Acute Plan: Evidence of iron deficiency. On IV Venofer. Epogen tomorrow. (4) Afib ICD Codes: I48.91 - Afib Status: Chronic Plan: on eliquis, coreg (5) History of prostate cancer ICD Codes: Z85.46 - History of prostate cancer Status: Chronic Plan: No signs of any obstruction on renal ultrasound. Continue to monitor without any Ocasio. 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 Baseline GFR 20. Renal function has declined, the etiology is not completely clear Recently started on Minoxidil which could have promoted fluid and salt retention and increased renal vein pressure, causing RENETTA. Renal function has been stable. Has been having runs of NSVT, due for cardiac cath in AM. Preemptively give 0.9% NS @ 50 cc/hr beginning tonight. He most likely will be dialysis dependent after cardiac cath. Attempt to reduce dye exposure in procedure. . NPO for vascath today. HD tomorrow immediately after cath. Repeat Saturday. Follow labs. Tentatively will plan for AVF creatiion on Saturday prior to discharge. Will go to [place] for HD at discharge, plans in process. On Lasix 80 BID IV. (2) HTN (hypertension) ICD Codes: I10 - HTN (hypertension) Status: Chronic Plan: Hydralazine continued Procardia XL 60mg PO BID Lisinopril held in light of possible REENTTA on CKD. Coreg continues Continue Lasix. May need to reduce the dose of Procardia as it can also cause edema (but not weight gain). (3) Anemia ICD Codes: D64.9 - Anemia, unspecified Status: Acute Plan: Evidence of iron deficiency. On IV Venofer. Epogen tomorrow. (4) Afib ICD Codes: I48.91 - Afib Status: Chronic Plan: on eliquis, coreg (5) History of prostate cancer ICD Codes: Z85.46 - History of prostate cancer Status: Chronic Plan: No signs of any obstruction on renal ultrasound. Continue to monitor without any Ocasio. Plan patient was seen and examined. Detailed discussion with the patient and his . There are plans for cardiac catheterization. His renal function has not changed. Vascath placement in anticipation of dialysis tomorrow after cardiac catheterization. Cautious IVF before cardiac catheterization. Outpatient dialysis will be at [facility] and not [place] [facility]. (Tai Brito MD) Problem Qualifiers (1) Anemia: Qualified Codes: N18.4 - Chronic kidney disease, stage 4 (severe); D63.1 - Anemia in chronic kidney disease (2) Afib: Qualified Codes: I48.2 - Chronic atrial fibrillation Shirley Carey Nov 28, 2017 11:35 Tai Brito MD Nov 28, 2017 20:43
--- NOTE | 2017-11-28 15:40 | HHI.PR ---
Subjective Remarks No new complaints Objective Vitals Vital Signs Date Time Temp Pulse Resp B/P (MAP) Pulse Ox O2 Delivery O2 Flow Rate FiO2 11/28/17 12:03 98.3 65 18 145/74 (97) 94 11/28/17 12:00 60 11/28/17 08:56 Room Air 11/28/17 08:03 73 11/28/17 08:03 98.2 70 18 120/69 (86) 96 11/28/17 04:00 Room Air 11/28/17 04:00 70 11/28/17 04:00 98.3 69 20 141/96 (111) 92 11/28/17 00:00 Room Air 11/28/17 00:00 71 11/27/17 23:10 98.4 74 20 144/74 (97) 94 11/27/17 21:53 94 11/27/17 20:01 80 11/27/17 20:00 Room Air 11/27/17 20:00 96.2 87 20 160/78 (105) 93 11/27/17 16:24 97.7 70 18 154/77 (102) 95 11/28/17 11/28/17 11/29/17 15:00 23:00 07:00 Intake Total 105 ml Balance 105 ml IV Total 105 ml Result Diagram: 11/26/17 0445 11/28/17 1025 Other Results Laboratory Tests Test 11/26/17 04:45 11/27/17 05:40 11/28/17 10:25 White Blood Count 6.2 TH/MM3 Red Blood Count 2.49 MIL/MM3 Hemoglobin 7.6 GM/DL Hematocrit 22.4 % Mean Corpuscular Volume 89.8 FL Mean Corpuscular Hemoglobin 30.5 PG Mean Corpuscular Hemoglobin Concent 34.0 % Red Cell Distribution Width 16.5 % Platelet Count 237 TH/MM3 Mean Platelet Volume 8.1 FL Neutrophils (%) (Auto) 69.6 % Lymphocytes (%) (Auto) 12.7 % Monocytes (%) (Auto) 10.5 % Eosinophils (%) (Auto) 6.2 % Basophils (%) (Auto) 1.0 % Neutrophils # (Auto) 4.3 TH/MM3 Lymphocytes # (Auto) 0.8 TH/MM3 Monocytes # (Auto) 0.7 TH/MM3 Eosinophils # (Auto) 0.4 TH/MM3 Basophils # (Auto) 0.1 TH/MM3 CBC Comment DIFF FINAL Differential Comment Blood Urea Nitrogen 73 MG/DL 73 MG/DL 71 MG/DL Creatinine 4.74 MG/DL 4.79 MG/DL 4.79 MG/DL Random Glucose 88 MG/DL 86 MG/DL 158 MG/DL Calcium Level 8.1 MG/DL 7.9 MG/DL 8.0 MG/DL Phosphorus Level 5.2 MG/DL 5.0 MG/DL 4.3 MG/DL Magnesium Level 2.1 MG/DL Sodium Level 145 MEQ/L 146 MEQ/L 146 MEQ/L Potassium Level 3.9 MEQ/L 3.9 MEQ/L 3.6 MEQ/L Chloride Level 114 MEQ/L 114 MEQ/L 112 MEQ/L Carbon Dioxide Level 21.2 MEQ/L 21.7 MEQ/L 23.6 MEQ/L Anion Gap 10 MEQ/L 10 MEQ/L 10 MEQ/L Estimat Glomerular Filtration Rate 12 ML/MIN 12 ML/MIN 12 ML/MIN Albumin 2.5 GM/DL 2.6 GM/DL Imaging Last Impressions Myocardial Perfusion Scan Nuc Med 11/27/17 0000 Signed Impressions: Service Date/Time: Monday, November 27, 2017 14:29 - CONCLUSION: Mild global hypokinesis. No reversible ischemic segments are identified. RISK CATEGORY: Intermediate (1-3%% Annual Mortality Rate) Tay Morelos MD Chest X-Ray 11/27/17 0000 Signed Impressions: Service Date/Time: Monday, November 27, 2017 10:50 - CONCLUSION: Mild congestive failure probable trace fluid on the left Austin Chu MD FACR Upper Extremity Ultrasound 11/23/17 0000 Signed Impressions: Service Date/Time: Thursday, November 23, 2017 20:28 - CONCLUSION: No DVT is identified within either upper extremity. Froylan Sahu MD Renal Ultrasound 11/23/17 0000 Signed Impressions: Service Date/Time: Thursday, November 23, 2017 14:32 - CONCLUSION: 1. No evidence of hydronephrosis. 2. Chronic medical renal disease. 3. Multiple Bilateral benign-appearing renal cysts. Mike Miller MD Objective Remarks GENERAL: This is a well-nourished, well-developed patient, in no apparent distress. CARDIOVASCULAR: Regular rate and rhythm without murmurs, gallops, or rubs. RESPIRATORY: Clear to auscultation. Breath sounds equal bilaterally. No wheezes , rales, or rhonchi. GASTROINTESTINAL: Abdomen soft, non-tender, nondistended. Normal active bowel sounds MUSCULOSKELETAL: LE edema NEURO: Alert & Oriented x4 to person, place, time, situation. 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 acute/chronic kidney dz stage 4 hx temp dialysis after bowel perforation 2. volume overload slightly improved. 3. acute on chronic anemia 4. afib on anticoagulation 5. htn 6. hx prostate ca/radiation 7. hx sbo/ischemic bowel perforation/resection - start trial of high dose lasix at 80mg IV BID (11/25), and observe clinical response - Case again d/w Dr. Brito (11/26). continue high dose lasix and observe - Echocardiogram (11/24) --> EF 50-55% - DVT prophylaxis Patient has baseline CKD stage 4 now with decline in Renal function has the etiology is not completely clear Lexiscan showed no reversible ischemia but patient has been having runs of NSVT , Plan for for cardiac cath in AM to rule out ischemic cause Risks and benefits including dialysis were reviewed with patient and his by Dr. Robles Preemptively give 0.9% NS @ 50 cc/hr beginning tonight. He most likely will be dialysis dependent after cardiac cath. S/P vascath 11/28/17 Nephrologies plan HD tomorrow immediately after cath. Repeat Saturday. Tentatively will plan for AVF creation on Saturday prior to discharge. Will go to [place] for HD at discharge, plans in process. Patient still on Lasix 80 BID IV (2) Afib ICD Codes: I48.91 - Afib Status: Chronic Plan: - telemetry (11/26) showed NSVT and periods of bradycardia with causes. Currently telemetry - decrease coreg 12.5mg BID - Echocardiogram (11/24) --> EF 55-60%, moderate TR - Case d/w Dr. Tay Robles (11/26) and (11/28) - Lexiscan (11/27) --> mild hypokinesis - plan for cardiac cath in AM - see above (3) Anemia ICD Codes: D64.9 - Anemia, unspecified Status: Acute Plan: - consider transfusion - have d/w Nephrology - if starting HD then would prefer to transfuse with HD - repeat CBC in AM (4) HTN (hypertension) ICD Codes: I10 - HTN (hypertension) Status: Chronic (5) History of prostate cancer ICD Codes: Z85.46 - History of prostate cancer Status: Chronic Assessment and Plan Patient examined. Assessment and plan formulated with Ashely Mercedes PA-C. I agree with the above. Problem Qualifiers (1) Afib: Qualified Codes: I48.2 - Chronic atrial fibrillation (2) Anemia: Qualified Codes: N18.4 - Chronic kidney disease, stage 4 (severe); D63.1 - Anemia in chronic kidney disease Ashely Mercedes Nov 28, 2017 15:40 Medardo James DO Dec 01, 2017 10:22
--- NOTE | 2017-11-28 15:54 | PD.RAD ---
Post Procedure Progress Note Pre Procedure Diagnosis: (1) Acute on chronic kidney disease, stage 3 Post Procedure Diagnosis: (1) Acute on chronic kidney disease, stage 3 Procedure Date: Nov 28, 2017 Supervising Radiologist: Tay Morelos Proceduralist/Assist: Mat Mancuso, RT(R), Sarah Monreal RT(R) Anesthesia: Local Plan of Activity Patient to Unit: Nursing Unit See PACS Report for procedural detail/treatment Central Venous Access Device Procedure 1 Right Internal Jugular Hemodialysis Catheter Non-Tunneled Placement dual lumen Tay Morelos MD Nov 28, 2017 15:54
[2017-11-28] MEDS ORDERED: SODIUM CHLORIDE 0.9% FLUSH 10 ML FLUSH IV FLUSH PRN (16:00)
[2017-11-28] MEDS ORDERED: HEPARIN SODIUM - IV 2,000 UNITS/2 ML VIAL IV FLUSH PRN (16:00)
--- NOTE | 2017-11-28 16:00 | RADRPT ---
EXAM DATE/TIME: 11/28/2017 14:59 [place] COMPARISON: No previous studies available for comparison. INDICATIONS : Patient with chronic kidney disease in need of non tunnelled dialysis catheter placement. MEDICAL HISTORY : A-Fib, HTN, Prostate cancer, CKD Stage 4, Anemia, Diverticulosis, Ischemic bowel with perforation SURGICAL HISTORY : Prostatectomy, Bilateral inguinal hernia repair, Dialysis catheter placement, Exploratory laparotomy with small bowel resection ENCOUNTER: Initial ACUITY: > 1 year PAIN SCORE: 0/10 FLUORO TIME: 0.2 minutes IMAGE SERIES: 1 ACCESS: Right internal jugular vein DEVICE(S): 1.) 14 Uzbek dual lumen 20 cm Schon catheter PROCEDURE : 1. Ultrasound guided venipuncture. 2. Fluoroscopic guidance. 3. Central line placement. The risks, benefits and alternatives to the procedure were explained and verbal and written consent w as obtained. The site was prepped in sterile fashion. Full sterile technique was used, including ca p, mask, sterile gloves and gown and a large sterile sheet. Hand hygiene and 2% chlorhexidine prep w as utilized per protocol for cutaneous antisepsis with appropriate dry time for site. Sterile gel an d sterile probe cover were utilized for ultrasound guidance. The skin and subcutaneous tissues were infiltrated with local anesthetic solution. A suitable site a shahana the vein was selected with ultrasound and fluoroscopic guidance. A small incision was made. Th e vein was accessed under direct ultrasound visualization using the micropuncture technique. The an ropuncture set was exchanged for a 0.035 wire. The tract was dilated. The catheter was advanced int o position under direct fluoroscopic visualization. The catheter was fixed in place with suture and a sterile dressing was applied. The patient tolerated the procedure well and there were no complications. CONCLUSION: Uncomplicated line placement as above. Tay Morelos MD on November 28, 2017 at 15:59 Board Certified Radiologist. This report was verified electronically.
[2017-11-28] MEDS ORDERED: SODIUM CHLOR 0.9% 1000 ML INJ 1,000 ML IV SCH (20:00)
[2017-11-28] MEDS: ATORVASTATIN 10 MG TAB PO SCH (21:34)
[2017-11-28] MEDS: TERAZOSIN HCL 1 MG CAP PO SCH (21:36)
[2017-11-28] MEDS: SODIUM CHLORIDE 0.9% FLUSH 10 ML FLUSH IV FLUSH PRN (21:36)
[2017-11-29] VITALS (12 sets, daily range): BP systolic 142–170; BP diastolic 71–88; PULSE 65–88; RESP 16–18; TEMP 97.6–98.7; O2SAT 92–98
[2017-11-29] MEDS: ASPIRIN 81 MG CHEW TAB CHEW SCH (07:27)
[2017-11-29] MEDS: APIXABAN 2.5 MG TABLET PO SCH (07:27)
[2017-11-29 08:05] LABS: INTERNATIONAL NORMALIZED RATIO 1.1 RATIO; PROTHROMBIN TIME - PATIENT 11.5 SEC (9.8-11.6)
[2017-11-29 08:09] LABS: AUTOMATED NEUTROPHIL # 4.7 TH/MM3 (1.8-7.7); BASOPHIL # 0.1 TH/MM3 (0-0.2); BASOPHIL % 1.3 % (0.0-2.0); EOSINOPHIL # 0.3 TH/MM3 (0-0.4); EOSINOPHIL % 5.4 % (0.0-4.0); HEMATOCRIT 24.5 % (39.0-51.0); HEMOGLOBIN 8.2 GM/DL (13.0-17.0); LYMPH % 10.7 % (9.0-44.0); LYMPHOCYTE # 0.7 TH/MM3 (1.0-4.8); MEAN CELL VOLUME 90.1 FL (80.0-100.0); MEAN CORPUSCULAR HEMOGLOBIN 30.3 PG (27.0-34.0); MEAN CORPUSCULAR HGB CONC 33.6 % (32.0-36.0); MONOCYTE # 0.5 TH/MM3 (0-0.9); NEUT % 74.6 % (16.0-70.0); PLATELET COUNT 249 TH/MM3 (150-450); RED BLOOD COUNT 2.72 MIL/MM3 (4.50-5.90); RED CELL DISTRIBUTION WIDTH 16.2 % (11.6-17.2); WHITE BLOOD COUNT 6.3 TH/MM3 (4.0-11.0)
[2017-11-29] MEDS ORDERED: HEPARIN-NS/PF FLUSH BAG 1,000 ML IV FLUSH ONE (08:27)
[2017-11-29 08:30] LABS: ALBUMIN 2.9 GM/DL (3.4-5.0); BICARBONATE 22.4 MEQ/L (21.0-32.0); CALCIUM 8.5 MG/DL (8.5-10.1); CREATININE 4.48 MG/DL (0.60-1.30)
[2017-11-29 08:31] LABS: PHOSPHORUS 3.9 MG/DL (2.5-4.9)
[2017-11-29] MEDS ORDERED: MIDAZOLAM HCL 2 MG/2 ML VIAL ONE (08:32)
[2017-11-29] MEDS ORDERED: ATROPINE SULFATE 1 MG/ML VIAL IV PUSH PRN (09:00)
[2017-11-29] MEDS ORDERED: SODIUM CHLOR 0.9% 250 ML INJ 250 ML IV PRN (09:00)
[2017-11-29] MEDS: CHOLECALCIFEROL (VIT D3) 1000 UNIT TAB PO SCH (09:00)
[2017-11-29] MEDS: SODIUM CHLORIDE 0.9% FLUSH 10 ML FLUSH IV FLUSH SCH ×2 (09:00→20:33)
[2017-11-29] MEDS ORDERED: SODIUM CHLORIDE 0.9% FLUSH 10 ML FLUSH IV FLUSH PRN (09:00)
[2017-11-29] MEDS: hydrALAZINE HCL 50 MG TAB PO SCH ×3 (09:00→20:32)
[2017-11-29] MEDS: CARVEDILOL 12.5 MG TAB PO SCH ×2 (09:00→20:30)
[2017-11-29] MEDS: ALLOPURINOL 100 MG TAB PO SCH (09:00)
[2017-11-29] MEDS ORDERED: ONDANSETRON HCL 4 MG/2 ML VIAL IV PUSH PRN (09:00)
[2017-11-29] MEDS: NIFEdipine 60 MG SUSTAINED RELEASE TAB PO SCH ×2 (09:00→22:33)
--- NOTE | 2017-11-29 09:06 | CATHPROC ---
[facility] Report Study Information Study Number Admission Scheduled Start Study Start [id number] Nov 23 2017 1:35PM 11/28/2017 Nov 29 2017 8:02AM [place] [facility] Cardiac Catheterization Admit Source Facility Department Emergency department [facility] Physician and Clinical Staff Initial Tay Harper Threading Machine Operator Loki Montalvo RN Recorder Verónica Correa BSN Scrub Rosa Cornejo,RT(R) Procedures Performed Procedure Location (Site) Vessel Name Coronary Angiograms LCA Left Coronary Coronary Angiograms RCA Right Coronary L Heart Cath Equipment Time Chute Builder Description Size Mfg Part Number Used/Scraped TRANSDUCER, TRSALO [id number] 08:17 SANTILLAN DC * Used W/STOCKCOCK *[id number] *[id number] *[id number] 08:17 [employer] PACK, CCL CUSTOM * Used *[id number] 08:17 Wanova PACER PEN, SKIN DUAL W/ RULER * Used *[id number] 08:17 eshtery SHEATH, FR6.5 PRELUDE 11CM FR 6.5 038ACT Used *[id number] 08:17 [employer] MEDICAL WIRE, 3MMJ .035 180CM 180CM Used *[id number] 08:17 NAMIC MANIFOLD, 4 PORT * Used *[id number] 08:17 NYCOMED OMNIPAQUE, 350 MG, 100ML 100ML [id number] Used [id number] 08:17 [employer] MEDICAL BLANKET,WARM AIR CCL * Used *[id number] History: Current Medications Medication Dosage/Unit Route Frequency Last Date/Time Taken Beta Reyna Statins (any) History: Allergies Allergy Reaction No Known Allergies History: Risk Factors Family History of Hypertension Dyslipidemia Previous [place] Previous Heart Failure Premature CAD Yes Yes No No No Prior Valve Prior PCI Prior CABG Surgery No No No Cerebrovascular Peripheral Artery Chronic Lung On Dialysis Diabetes Disease Disease Disease No No No Yes No History: Stress Tests Stress or Imaging Studies Performed No History: Other Current Smoker Method Quit Packs a Day Years Used Pack Years No Cigarettes 40 Years Ago 1 20 20 Labs Hgb (g/dl) Hct (%) WBC (l/cumm) Platelets (thousands) 11.60-17.00 35.00-51.00 4.00-11.00 150.00-450.00 7.6 22.4 6.2 237 Glucose (mg/dl) BUN (mg/dl) Creatinine (mg/dl) BUN:Creatinine (1:x) 74.00-106.00 7.00-18.00 0.50-1.30 10.00-20.00 158 71 4.8 14.8 Na (meq/l) K (meq/l) 136.00-145.00 3.50-5.10 146 3.6 INR (PTT:PT) 0.90-1.10 1.2 CPK-MB (ng/ML) 0.50-3.60 Not Drawn Medication Medication Total Dose (Bolus/Oral) Medication Total Dosage/Unit 1% XYLOCAINE 40 mL VERSED 1 mg Medications (Bolus/Oral) Medication Time Given Dosage/Unit Administered By Reason 1% XYLOCAINE 11/29/2017 8:34:51 AM 20 mL Tay Robles 20 mL 1% XYLOCAINE given in lab by Tay Robles in Right Groin via Subcutaneous. VERSED 11/29/2017 8:35:29 AM 1 mg Loki Montalvo 1 mg VERSED given in lab by Loki Montalvo RN in Right Antecubital via Peripheral IV. 1% XYLOCAINE 11/29/2017 8:36:42 AM 20 mL Tay Robles 20 mL 1% XYLOCAINE given in lab by Tay Robles in Right Groin via Subcutaneous. Ordered by Tay Darnell ms. Medication (Drip) Medication Time Given Dosage/Unit Concentration/Unit Diluent (ml) Solutio n IV Solutions 11/29/2017 8:25:38 AM 0 mL (IV) 500 NaCl .9 IV Solutions given in lab by Loki Montalvo RN in Right Antecubital via Peripheral IV. Pump/Drip Flow = 30 ml/hr using NaCl .9. Initial Case Assessment Cardiovascular HR Rhythm NIBP Chest Pain 63 a-fib 153/95 0 Edema Present Skin color Skin None Normal Warm Dry Circulatory - Right Pulses Dorsalis Pedis Femoral d 3 Scale (0,1,2,3,4,d) Circulatory - Left Pulses Dorsalis Pedis Femoral 3 3 Scale (0,1,2,3,4,d) Circulatory - Lower Extremities Color Lower Right Color Lower Left Normal Normal Neurological State Oriented to time-place- Alert Moves all extremities person Respiration - General Respiration Rate SpO2 (%) (B/min) 8 95 Final Case Assessment Cardiovascular HR Rhythm NIBP Chest Pain 79 sr 145/89 0 Edema Present Skin color Skin None Normal Warm Dry Circulatory - Right Pulses Dorsalis Pedis Femoral d 3 Scale (0,1,2,3,4,d) Circulatory - Left Pulses Dorsalis Pedis Femoral 3 3 Scale (0,1,2,3,4,d) Circulatory - Lower Extremities Color Lower Right Color Lower Left Normal Normal Neurological State Oriented to time-place- Alert Moves all extremities person Respiration - General Respiration Rate SpO2 (%) (B/min) 14 93 Chronological Log Time Study Chronological Log 8:21:12 Patient arrived via Bed. 8:21:17 Patient Name, D.O.B, / Armband Verified By R.N. 8:25:19 Consent signed by the physician and the patient and verified by the [facility] staff. 8:25:20 Pre-op and post- op instructions given; patient acknowledges understanding of instructions. 8:25:20 Verbal Stimulation=2 Physical Stimulation=2 Airway=2 Respiration=2 TOTAL=8. (0=absent, 1=li mited, 2=present) 8:25:22 Presedation assessment performed by [facility] RN. 8:25:31 Patient has been NPO for More than 6Hrs. 8:25:31 Skin Breakdown new port in upper right chest 8:25:35 Patient Warmer Placed on the Table. 8:25:37 Lashanda Prominences Protected 8:25:37 A # 20 IV was noted in the Antecubital (right). Grade = 0 IV Solutions given in lab by Loki Montalvo, RN in Right Antecubital via Peripheral IV. Pump/Dri p Flow = 30 ml/hr using 8:25:38 NaCl .9. 8:25:39 History and physical on the chart or being dictated. Assessment: Initial Case, HR=63 BPM, Rhythm=a-fib, DITY=887/95 mmhg, Chest Pain=0, Edema=None, Color=Normal, Skin = Warm, Dry Right Pulses: Omid Ped=d, Femoral=3 Left Pulses: Omid Ped=3, Femoral=3 8:25:40 Lower Right Extremities: Color=Normal Lower Left Extremities: Color=Normal Neurological: State=Alert, Ox3, VARNER Respiration: Resp=8 B/min, SpO2=95 % Vitals capture started with the following parameters, Patient=Adult, Interval=5 min, Initial Pre hcbqg=284 mmHg, 8:25:43 Deflation Rate=5 mmHg, Cuff placed on Left Arm 8:26:20 HR=75 bpm, NIRL=030/95 mmhg, SpO2=95.0 %, Resp=19 B/min, Pain=0, Pravin=10, Kate=2 8:30:50 MD arrived. 8:31:21 HR=70 bpm, DPOH=988/95 mmhg, SpO2=94.0 %, Resp=16 B/min, Pain=0, Pravin=10, Kate=2 Time Out. Correct patient, correct procedure, correct physician, power injector not loaded with contrast with surgical 8:34:42 team present. Time Out Concurred by MD and individual staff in procedure. 8:34:49 Case Start 8:34:51 20 mL 1% XYLOCAINE given in lab by Tay Robles in Right Groin via Subcutaneous. 8:35:01 Pressure channel 1 zero failed. 8:35:09 Pressure channel 1 zeroed. 8:35:29 1 mg VERSED given in lab by Loki Montalvo, RN in Right Antecubital via Peripheral IV. 8:36:21 Reference ECG taken 8:36:24 HR=75 bpm, ZYTN=418/95 mmhg, SpO2=94.0 %, Resp=13 B/min, Pain=0, Pravin=10, Kate=2 8:36:42 20 mL 1% XYLOCAINE given in lab by Tay Robles in Right Groin via Subcutaneous. Ordered by Tay Robles. 8:37:35 Access site was Right Femoral Artery. 8:37:55 A SHEATH, FR6.5 PRELUDE 11CM FR 6.5 was advanced into the Fem Art (right) using the Percutan eous technique. A JL 4.0 INFINITI CATHETER FR 6 was advanced over a wire. OMNIPAQUE, 350 MG, 100ML 100ML was use d for 8:38:25 injections. Recorded Pressure: Ao, HR=74, Condition=Condition 1 8:39:38 (Aorta) Ao 145/63/98 8:40:21 The LCA was injected and visualized at various angles. OMNIPAQUE, 350 MG, 100ML 100ML used. 8:41:09 Catheter was removed A JR 4.0 INFINITI CATHETER FR 6 was advanced over a wire. OMNIPAQUE, 350 MG, 100ML 100ML was use d for 8:41:11 injections. 8:41:23 HR=75 bpm, HIGL=848/89 mmhg, SpO2=93.0 %, Resp=21 B/min, Pain=0, Pravin=10, Kate=2 8:42:24 The RCA was injected and visualized at various angles. OMNIPAQUE, 350 MG, 100ML 100ML used. 8:42:33 Catheter(s) removed without difficulty 8:43:02 Sheath removed; pressure applied to access site. Assessment: Final Case, HR=79 BPM, Rhythm=sr, MLEV=725/89 mmhg, Chest Pain=0, Edema=None, Color= Normal, Skin = Warm, Dry Right Pulses: Omid Ped=d, Femoral=3 Left Pulses: Omid Ped=3, Femoral=3 8:44:31 Lower Right Extremities: Color=Normal Lower Left Extremities: Color=Normal Neurological: State=Alert, Ox3, VRANER Respiration: Resp=14 B/min, SpO2=93 % 8:46:24 HR=63 bpm, LVKS=622/82 mmhg, SpO2=94.0 %, Resp=25 B/min, Pain=0, Pravin=10, Kate=2 8:49:59 No case complications noted. 8:50:23 Cine recording checked. 8:50:28 Bedside Report will be given. 8:50:34 A Left Heart Cath was performed. 8:51:25 HR=71 bpm, AIIA=090/91 mmhg, SpO2=95.0 %, Resp=20 B/min, Pain=0, Pravin=10, Kate=2 8:54:57 Case End 8:56:24 HR=77 bpm, JDPC=476/83 mmhg, SpO2=94.0 %, Resp=12 B/min, Pain=0, Pravin=10, Kate=2 9:01:28 HR=62 bpm, HGXD=535/81 mmhg, SpO2=94.0 %, Resp=11 B/min, Pain=0, Pravin=10, Kate=2 9:03:57 Sterile dressing applied to site 9:06:27 HR=75 bpm, TAAB=458/85 mmhg, SpO2=93.0 %, Resp=11 B/min, Pain=0, Pravin=10, Kate=2 9:06:43 Patient moved to stretcher 9:06:48 Vitals capture stopped. End Study - Contrast Media Used In Study Contrast Total Opened (mL) Total Used (mL) Total Wasted (mL) Omnipaque 25 25 0 End Study - Maximum Contrast Load Max Contrast Load (mL) 101.4 End Study - Radiation Exposure Fluoro Time (minutes) 1.1 End Study - Sheaths Sheaths Pulled By Sheath Hold Time (min) Tay Robles 20 End Study - Patient Disposition Complications Transferred To [facility]
[2017-11-29] MEDS ORDERED: SODIUM CHLOR 0.9% 1000 ML INJ 1,000 ML IV SCH (09:15)
[2017-11-29] MEDS ORDERED: IOHEXOL 350 MG/ML 50 ML BTL (for Cath Lab) OTHER ONE (09:54)
[2017-11-29] MEDS ORDERED: MISC INFORMATION XX ONE (10:00)
--- NOTE | 2017-11-29 10:12 | HHI.NPPN ---
Subjective Renal Failure: Chronic, Acute, Stage IV Interval History Seen in DOCU post cardiac cath. Spoke with Dr. Robles, no stent placed. His creatinine was better pre cath today. (Shirley Carey) Review of Systems General Constitutional: Fatigue (Shirley Carey) Respiratory Lungs: SOB (Shirley Carey) Cardiovascular Cardiac: Edema (Shirley Carey) Objective Data Data Vital Signs Date Time Temp Pulse Resp B/P (MAP) Pulse Ox O2 Delivery O2 Flow Rate FiO2 11/29/17 09:14 94 Room Air 11/29/17 08:00 97.6 80 18 142/85 (104) 92 11/29/17 08:00 Room Air 11/29/17 07:51 67 11/29/17 04:00 97.6 81 18 149/71 (97) 93 11/29/17 03:44 72 11/29/17 00:00 98.1 71 18 165/77 (106) 92 11/28/17 23:45 73 11/28/17 21:10 69 11/28/17 21:00 21 11/28/17 20:45 Room Air 11/28/17 20:21 98.1 80 20 148/68 (94) 95 11/28/17 20:00 97.5 66 18 154/65 (94) 98 11/28/17 12:03 98.3 65 18 145/74 (97) 94 11/28/17 12:00 60 (Shirley Carey) -: 11/29/17 0747 11/29/17 0747 Imaging Last 72 hours Impressions Catheter Placement X-Ray 11/28/17 0000 Signed Impressions: Service Date/Time: November 14:59 - CONCLUSION: Uncomplicated line placement as above. Tay Morelos MD Myocardial Perfusion Scan Nuc Med 11/27/17 0000 Signed Impressions: Service Date/Time: Monday, November 27, 2017 14:29 - CONCLUSION: Mild global hypokinesis. No reversible ischemic segments are identified. RISK CATEGORY: Intermediate (1-3%% Annual Mortality Rate) Tay Morelos MD Chest X-Ray 11/27/17 0000 Signed Impressions: Service Date/Time: Monday, November 27, 2017 10:50 - CONCLUSION: Mild congestive failure probable trace fluid on the left Austin Chu MD FACR Tubes & Lines: Vas-Cath (Shirley Carey B. FLIGHT FOLLOWER) Physical Exam General Appearance: Well Developed, Well Nourished, No Acute Distress, Comfortable (AurelioShirley B. FLIGHT FOLLOWER) Ears & Nose Ears & Nose Exam: Tympanic Membranes Normal (Aurelio,Shirley B. FLIGHT FOLLOWER) Throat Throat Exam: Oral Mucosa [place] & Moist (AurelioShirley B. FLIGHT FOLLOWER) Neck Neck Exam: Neck Supple (Aurelio,Shirley B. FLIGHT FOLLOWER) Pulmonary Resp Exam: Clear Bilaterally, Decreased Bases (AurelioShriley B. FLIGHT FOLLOWER) Cardiology CV Exam: Regular, Normal Sinus Rhythm (AurelioShirley B. FLIGHT FOLLOWER) Gastrointestinal/Abdomen GI Exam: Soft, Non-Tender, Positive Bowel Movement (AurelioShirley B. FLIGHT FOLLOWER) Musculoskeletal MS Exam: Joints Intact, Normal Tone (Narciso Careyon B. FLIGHT FOLLOWER) Integumentary Skin Exam: Clear, Warm, Dry, Intact (AurelioShirley B. FLIGHT FOLLOWER) Extremeties Extremities Exam: Pedal Pulses Palpable, Trace Edema, Dependent Edema (AurelioShirley B. FLIGHT FOLLOWER) Neurologic Neuro Exam: Alert, Awake, Oriented, Speech Clear, Moving All Extremities (AurelioShirley B. FLIGHT FOLLOWER) Psychiatric Psych Exam: Appropriate Responses (AurelioShirley B. FLIGHT FOLLOWER) Assessment/Plan Discussed Condition With: Patient, Spouse Assessment Summary: RENETTA/Acute Renal Failure, Anemia of CKD, Fluid/Volume Overload, Hypertension Problem List: (1) 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 Baseline GFR 20. Renal function has declined in the past month, the etiology is not completely clear s/p vascath placement 11/28 s/p cardiac cath today (25 ml contrast used per Dr. Robles) we will dialyze today for HD today for 2 hrs Stop IVF when dialysis is started Eliquis held in light of AVF surgery and Permcath placement on Saturday If he improves he may not need Permcath placed, pending weekend progress On Lasix 80 BID, edema improving, change to once daily Fluid removal of 1.5 L with HD today. If needed, he will go to [place] for HD at discharge, plans in process. (2) Anemia ICD Codes: D64.9 - Anemia, unspecified Status: Acute Plan: On Venover Start Epogen Give one unit today post cardiac cath (3) HTN (hypertension) ICD Codes: I10 - HTN (hypertension) Status: Chronic Plan: Hydralazine continued Procardia XL 60mg PO BID Lisinopril held in light of possible RENETTA on CKD. Coreg continues Continue Lasix. May need to reduce the dose of Procardia as it can also cause edema (but not weight gain). (4) Afib ICD Codes: I48.91 - Afib Status: Chronic Plan: on coreg Eliquis held for upcoming surgery Dr. Robles recommends ablation (5) History of prostate cancer ICD Codes: Z85.46 - History of prostate cancer Status: Chronic Plan: No signs of any obstruction on renal ultrasound. Continue to monitor without any Ocasio. (Shirley Carey) Plan patient was seen and examined. Renal function is stable this morning. Dialysis today. Monitor urine output and renal function. Avoid nephrotoxic agents. PermCath placement only if renal function declines and he needs to continue dialysis. (Tai Brito MD) Problem Qualifiers (1) Anemia: Qualified Codes: N18.4 - Chronic kidney disease, stage 4 (severe); D63.1 - Anemia in chronic kidney disease (2) Afib: Qualified Codes: I48.2 - Chronic atrial fibrillation Shirley Carey Nov 29, 2017 10:12 Tai Brito MD Nov 29, 2017 12:30
[2017-11-29] MEDS: HEPARIN SODIUM - IV 10,000 UNITS/10 ML VIAL PRN (15:06)
[2017-11-29] MEDS: GENTAMICIN SULFATE 20 MG/2 ML VIAL OTHER PRN (15:06)
[2017-11-29] MEDS: EPOETIN ALFA 10,000 UNITS/ML VIAL IV PUSH PRN (15:06)
--- NOTE | 2017-11-29 18:40 | HHI.PR ---
Subjective Remarks Patient reports feeling well No new complaints Objective Vitals Vital Signs Date Time Temp Pulse Resp B/P (MAP) Pulse Ox O2 Delivery O2 Flow Rate FiO2 11/29/17 10:20 94 21 11/29/17 09:14 94 Room Air 11/29/17 08:00 97.6 80 18 142/85 (104) 92 11/29/17 08:00 Room Air 11/29/17 07:51 67 11/29/17 04:00 97.6 81 18 149/71 (97) 93 11/29/17 03:44 72 11/29/17 00:00 98.1 71 18 165/77 (106) 92 11/28/17 23:45 73 11/28/17 21:10 69 11/28/17 21:00 21 11/28/17 20:45 Room Air 11/28/17 20:21 98.1 80 20 148/68 (94) 95 11/28/17 20:00 97.5 66 18 154/65 (94) 98 11/29/17 11/29/17 11/30/17 15:00 23:00 07:00 Output Total 1800 ml Balance -1800 ml Hemodialysis 1800 ml Result Diagram: 11/29/17 0747 11/29/17 0747 Other Results Laboratory Tests Test 11/27/17 05:40 11/28/17 10:25 11/29/17 07:47 Blood Urea Nitrogen 73 MG/DL 71 MG/DL 64 MG/DL Creatinine 4.79 MG/DL 4.79 MG/DL 4.48 MG/DL Random Glucose 86 MG/DL 158 MG/DL 92 MG/DL Albumin 2.5 GM/DL 2.6 GM/DL 2.9 GM/DL Calcium Level 7.9 MG/DL 8.0 MG/DL 8.5 MG/DL Phosphorus Level 5.0 MG/DL 4.3 MG/DL 3.9 MG/DL Sodium Level 146 MEQ/L 146 MEQ/L 144 MEQ/L Potassium Level 3.9 MEQ/L 3.6 MEQ/L 3.7 MEQ/L Chloride Level 114 MEQ/L 112 MEQ/L 110 MEQ/L Carbon Dioxide Level 21.7 MEQ/L 23.6 MEQ/L 22.4 MEQ/L Anion Gap 10 MEQ/L 10 MEQ/L 12 MEQ/L Estimat Glomerular Filtration Rate 12 ML/MIN 12 ML/MIN 13 ML/MIN White Blood Count 6.3 TH/MM3 Red Blood Count 2.72 MIL/MM3 Hemoglobin 8.2 GM/DL Hematocrit 24.5 % Mean Corpuscular Volume 90.1 FL Mean Corpuscular Hemoglobin 30.3 PG Mean Corpuscular Hemoglobin Concent 33.6 % Red Cell Distribution Width 16.2 % Platelet Count 249 TH/MM3 Mean Platelet Volume 8.0 FL Neutrophils (%) (Auto) 74.6 % Lymphocytes (%) (Auto) 10.7 % Monocytes (%) (Auto) 8.0 % Eosinophils (%) (Auto) 5.4 % Basophils (%) (Auto) 1.3 % Neutrophils # (Auto) 4.7 TH/MM3 Lymphocytes # (Auto) 0.7 TH/MM3 Monocytes # (Auto) 0.5 TH/MM3 Eosinophils # (Auto) 0.3 TH/MM3 Basophils # (Auto) 0.1 TH/MM3 CBC Comment DIFF FINAL Differential Comment Prothrombin Time 11.5 SEC Prothromb Time International Ratio 1.1 RATIO Imaging Last Impressions Myocardial Perfusion Scan Nuc Med 11/27/17 0000 Signed Impressions: Service Date/Time: Monday, November 27, 2017 14:29 - CONCLUSION: Mild global hypokinesis. No reversible ischemic segments are identified. RISK CATEGORY: Intermediate (1-3%% Annual Mortality Rate) Tay Morelos MD Chest X-Ray 11/27/17 0000 Signed Impressions: Service Date/Time: Monday, November 27, 2017 10:50 - CONCLUSION: Mild congestive failure probable trace fluid on the left Austin Chu MD FACR Upper Extremity Ultrasound 11/23/17 0000 Signed Impressions: Service Date/Time: Thursday, November 23, 2017 20:28 - CONCLUSION: No DVT is identified within either upper extremity. Froylan Sahu MD Renal Ultrasound 11/23/17 0000 Signed Impressions: Service Date/Time: Thursday, November 23, 2017 14:32 - CONCLUSION: 1. No evidence of hydronephrosis. 2. Chronic medical renal disease. 3. Multiple Bilateral benign-appearing renal cysts. Mike Miller MD Objective Remarks GENERAL: This is a well-nourished, well-developed patient, in no apparent distress. CARDIOVASCULAR: Regular rate and rhythm without murmurs, gallops, or rubs. RESPIRATORY: Clear to auscultation. Breath sounds equal bilaterally. No wheezes , rales, or rhonchi. GASTROINTESTINAL: Abdomen soft, non-tender, nondistended. Normal active bowel sounds MUSCULOSKELETAL: LE edema NEURO: Alert & Oriented x4 to person, place, time, situation. 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 acute/chronic kidney dz stage 4 hx temp dialysis after bowel perforation 2. volume overload slightly improved. 3. acute on chronic anemia 4. afib on anticoagulation 5. htn 6. hx prostate ca/radiation 7. hx sbo/ischemic bowel perforation/resection - start trial of high dose lasix at 80mg IV BID (11/25), and observe clinical response - Case again d/w Dr. Brito (11/26). continue high dose lasix and observe - Echocardiogram (11/24) --> EF 50-55% - DVT prophylaxis Patient has baseline CKD stage 4 now with decline in Renal function has the etiology is not completely clear Lexiscan showed no reversible ischemia but patient has been having runs of NSVT , Plan for for cardiac cath in AM to rule out ischemic cause Risks and benefits including dialysis were reviewed with patient and his by Dr. Robles Preemptively give 0.9% NS @ 50 cc/hr beginning tonight. He most likely will be dialysis dependent after cardiac cath. S/P vascath 11/28/17 S/P cardiac catheterization (11/29) with Dr. Robles, no intervention indicated Per Dr. Robles patient to have EP study with Dr. Rea on Saturday S/P HD today. Repeat HD Saturday. Tentatively will plan for AVF creation on Saturday prior to discharge, depending on how labs look on Saturday Lasix 80 IV to daily per nephrology (11/29) (2) Afib ICD Codes: I48.91 - Afib Status: Chronic Plan: - telemetry (11/26) showed NSVT and periods of bradycardia with causes. Currently telemetry - decrease coreg 12.5mg BID - Echocardiogram (11/24) --> EF 55-60%, moderate TR - Case d/w Dr. Tay Robles (11/26) and (11/28) - Trang (11/27) --> mild hypokinesis - S/P cardiac cath (11/29) with Dr. Robles with no intervention indicated - plan for EP study with Dr. Rea on Saturday - Per nephrology Eliquis on hold for possible fistula placement Saturday - see above (3) Anemia ICD Codes: D64.9 - Anemia, unspecified Status: Acute Plan: - consider transfusion - have d/w Nephrology - if starting HD then would prefer to transfuse with HD - Hgb stable (4) HTN (hypertension) ICD Codes: I10 - HTN (hypertension) Status: Chronic (5) History of prostate cancer ICD Codes: Z85.46 - History of prostate cancer Status: Chronic Assessment and Plan Patient examined. Assessment and plan formulated with Ashely Mercedes PA-C. I agree with the above. Problem Qualifiers (1) Afib: Qualified Codes: I48.2 - Chronic atrial fibrillation (2) Anemia: Qualified Codes: N18.4 - Chronic kidney disease, stage 4 (severe); D63.1 - Anemia in chronic kidney disease Ashely Mercedes Nov 29, 2017 18:40 Medardo James DO Dec 01, 2017 10:22
[2017-11-29] MEDS: ATORVASTATIN 10 MG TAB PO SCH (20:30)
[2017-11-29] MEDS: TERAZOSIN HCL 1 MG CAP PO SCH (20:30)
[2017-11-30] VITALS (33 sets, daily range): BP systolic 138–164; BP diastolic 76–92; PULSE 58–81; RESP 18–20; TEMP 98.1–98.6; O2SAT 93–99
[2017-11-30 07:15] LABS: AUTOMATED NEUTROPHIL # 3.7 TH/MM3 (1.8-7.7); BASOPHIL % 0.9 % (0.0-2.0); EOSINOPHIL # 0.2 TH/MM3 (0-0.4); EOSINOPHIL % 3.3 % (0.0-4.0); HEMATOCRIT 21.3 % (39.0-51.0); HEMOGLOBIN 7.4 GM/DL (13.0-17.0); LYMPH % 11.6 % (9.0-44.0); LYMPHOCYTE # 0.6 TH/MM3 (1.0-4.8); MEAN CELL VOLUME 89.7 FL (80.0-100.0); MEAN CORPUSCULAR HEMOGLOBIN 31.1 PG (27.0-34.0); MEAN CORPUSCULAR HGB CONC 34.7 % (32.0-36.0); MEAN PLATELET VOLUME 8.2 FL (7.0-11.0); MONO % 11.3 % (0.0-8.0); MONOCYTE # 0.6 TH/MM3 (0-0.9); NEUT % 72.9 % (16.0-70.0); PLATELET COUNT 195 TH/MM3 (150-450); RED BLOOD COUNT 2.37 MIL/MM3 (4.50-5.90); RED CELL DISTRIBUTION WIDTH 16.2 % (11.6-17.2)
[2017-11-30 08:06] LABS: BICARBONATE 27.6 MEQ/L (21.0-32.0); CREATININE 3.49 MG/DL (0.60-1.30)
[2017-11-30] MEDS: hydrALAZINE HCL 50 MG TAB PO SCH ×3 (09:20→18:15)
[2017-11-30] MEDS: APIXABAN 2.5 MG TABLET PO SCH ×2 (09:21→21:53)
[2017-11-30] MEDS: NIFEdipine 60 MG SUSTAINED RELEASE TAB PO SCH ×2 (09:21→21:53)
[2017-11-30] MEDS: ALLOPURINOL 100 MG TAB PO SCH (09:22)
[2017-11-30] MEDS: ASPIRIN 81 MG CHEW TAB CHEW SCH (09:22)
[2017-11-30] MEDS: CARVEDILOL 12.5 MG TAB PO SCH ×2 (09:22→21:53)
[2017-11-30] MEDS: CHOLECALCIFEROL (VIT D3) 1000 UNIT TAB PO SCH (09:22)
[2017-11-30] MEDS: SODIUM CHLORIDE 0.9% FLUSH 10 ML FLUSH IV FLUSH SCH ×2 (09:23→21:54)
[2017-11-30] MEDS: FUROSEMIDE 40 MG/4 ML VIAL IV PUSH SCH (09:23)
[2017-11-30] MEDS ORDERED: SODIUM CHLOR 0.9% 250 ML INJ 250 ML IV ONE (14:15)
[2017-11-30] MEDS ORDERED: FUROSEMIDE 20 MG/2 ML VIAL IV PUSH ONE (14:15)
--- NOTE | 2017-11-30 14:47 | HHI.NPPN ---
Subjective Renal Failure: Chronic, Acute, Stage IV Interval History patient had dialysis yesterday. He is comfortable. Urine output has dropped predictably after dialysis. Needs blood transfusion: this could not be administered yesterday at dialysis. It was ordered today. Review of Systems General Constitutional: Fatigue Respiratory Lungs: SOB Cardiovascular Cardiac: Edema Objective Data Data Vital Signs Date Time Temp Pulse Resp B/P (MAP) Pulse Ox O2 Delivery O2 Flow Rate FiO2 11/30/17 14:00 75 11/30/17 13:00 69 11/30/17 12:00 63 11/30/17 11:00 98.2 80 18 141/79 (99) 98 11/30/17 11:00 58 11/30/17 10:00 66 11/30/17 09:00 60 11/30/17 08:00 70 11/30/17 07:30 98.4 78 18 155/89 (111) 99 11/30/17 07:00 73 11/30/17 06:01 80 11/30/17 05:06 81 11/30/17 04:00 78 11/30/17 03:58 60 11/30/17 03:02 79 11/30/17 03:00 98.4 75 18 164/89 (114) 93 11/30/17 02:06 72 11/30/17 01:04 67 11/30/17 00:00 66 11/29/17 23:00 65 11/29/17 23:00 98.7 79 18 170/83 (112) 95 11/29/17 23:00 Room Air 11/29/17 22:00 72 11/29/17 21:00 76 11/29/17 19:00 Room Air 11/29/17 19:00 98.1 78 18 165/85 (111) 97 11/29/17 19:00 83 11/29/17 18:35 77 11/29/17 18:00 88 16 151/88 (109) 98 -: 11/30/17 0639 11/30/17 0639 Tubes & Lines: Vas-Cath Physical Exam General Appearance: Well Developed, Well Nourished, No Acute Distress, Comfortable Ears & Nose Ears & Nose Exam: Tympanic Membranes Normal Throat Throat Exam: Oral Mucosa [place] & Moist Neck Neck Exam: Neck Supple Pulmonary Resp Exam: Clear Bilaterally, Decreased Bases Cardiology CV Exam: Regular, Normal Sinus Rhythm Gastrointestinal/Abdomen GI Exam: Soft, Non-Tender, Positive Bowel Movement Musculoskeletal MS Exam: Joints Intact, Normal Tone Integumentary Skin Exam: Clear, Warm, Dry, Intact Extremeties Extremities Exam: Pedal Pulses Palpable, Trace Edema, Dependent Edema Neurologic Neuro Exam: Alert, Awake, Oriented, Speech Clear, Moving All Extremities Psychiatric Psych Exam: Appropriate Responses Assessment/Plan Discussed Condition With: Patient, Spouse Assessment Summary: RENETTA/Acute Renal Failure, Anemia of CKD, Fluid/Volume Overload, Hypertension Problem List: (1) 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 Baseline GFR 20. Renal function has declined in the past month, the etiology is not completely clear s/p vascath placement 11/28 s/p cardiac cath on 11/29. Dialysis initiated on 11/29. Dialysis again today: minimal fluid removal. Monitor fluid and electrolytes. It is still unclear if he has reached ESRD and will need outpatient dialysis after discharge. (2) Anemia ICD Codes: D64.9 - Anemia, unspecified Status: Acute Plan: On Venover Started Epogen Blood transfusion. (3) HTN (hypertension) ICD Codes: I10 - HTN (hypertension) Status: Chronic Plan: Hydralazine continued Procardia XL 60mg PO BID Lisinopril held in light of possible RENETTA on CKD. Coreg continues Continue Lasix. May need to reduce the dose of Procardia as it can also cause edema (but not weight gain). (4) Afib ICD Codes: I48.91 - Afib Status: Chronic Plan: patient also had recurrent runs of Ventricular tachycardia. Had Cardiac cath. No intervention was needed. (5) History of prostate cancer ICD Codes: Z85.46 - History of prostate cancer Status: Chronic Plan: No signs of any obstruction on renal ultrasound. Continue to monitor without any Ocasio. Problem Qualifiers (1) Anemia: Qualified Codes: N18.4 - Chronic kidney disease, stage 4 (severe); D63.1 - Anemia in chronic kidney disease (2) Afib: Qualified Codes: I48.2 - Chronic atrial fibrillation Tai Brito MD Nov 30, 2017 14:47
[2017-11-30] MEDS: HEPARIN SODIUM - IV 10,000 UNITS/10 ML VIAL PRN (16:08)
[2017-11-30] MEDS: EPOETIN ALFA 10,000 UNITS/ML VIAL IV PUSH PRN (16:08)
[2017-11-30] MEDS: GENTAMICIN SULFATE 20 MG/2 ML VIAL OTHER PRN (16:08)
[2017-11-30] MEDS: SODIUM CHLORIDE 0.9% FLUSH 10 ML FLUSH IV FLUSH PRN (16:08)
--- NOTE | 2017-11-30 18:45 | HHI.PR ---
Subjective Remarks No new complaints. Objective Vitals Vital Signs Date Time Temp Pulse Resp B/P (MAP) Pulse Ox O2 Delivery O2 Flow Rate FiO2 11/30/17 18:13 68 150/76 (100) 11/30/17 18:00 74 11/30/17 16:38 68 20 148/87 11/30/17 15:36 98.6 74 18 138/92 11/30/17 15:00 61 11/30/17 14:52 68 20 144/83 11/30/17 14:00 75 11/30/17 13:00 69 11/30/17 12:00 63 11/30/17 11:00 98.2 80 18 141/79 (99) 98 11/30/17 11:00 58 11/30/17 10:00 66 11/30/17 09:00 60 11/30/17 08:00 70 11/30/17 07:30 98.4 78 18 155/89 (111) 99 11/30/17 07:00 73 11/30/17 06:01 80 11/30/17 05:06 81 11/30/17 04:00 78 11/30/17 03:58 60 11/30/17 03:02 79 11/30/17 03:00 98.4 75 18 164/89 (114) 93 11/30/17 02:06 72 11/30/17 01:04 67 11/30/17 00:00 66 11/29/17 23:00 65 11/29/17 23:00 98.7 79 18 170/83 (112) 95 11/29/17 23:00 Room Air 11/29/17 22:00 72 11/29/17 21:00 76 11/29/17 19:00 Room Air 11/29/17 19:00 98.1 78 18 165/85 (111) 97 11/29/17 19:00 83 11/30/17 11/30/17 12/01/17 15:00 23:00 07:00 Intake Total 2120 ml Output Total 2130 ml Balance -10 ml Intake Oral 1320 ml Packed Cells 800 ml Output Urine Total 2130 ml Result Diagram: 11/30/17 0639 11/30/17 0639 Imaging Last Impressions Myocardial Perfusion Scan Nuc Med 11/27/17 0000 Signed Impressions: Service Date/Time: Monday, November 27, 2017 14:29 - CONCLUSION: Mild global hypokinesis. No reversible ischemic segments are identified. RISK CATEGORY: Intermediate (1-3%% Annual Mortality Rate) Tay Morelos MD Chest X-Ray 11/27/17 0000 Signed Impressions: Service Date/Time: Monday, November 27, 2017 10:50 - CONCLUSION: Mild congestive failure probable trace fluid on the left Austin Chu MD FACR Upper Extremity Ultrasound 11/23/17 0000 Signed Impressions: Service Date/Time: Thursday, November 23, 2017 20:28 - CONCLUSION: No DVT is identified within either upper extremity. Froylan Sahu MD Renal Ultrasound 11/23/17 0000 Signed Impressions: Service Date/Time: Thursday, November 23, 2017 14:32 - CONCLUSION: 1. No evidence of hydronephrosis. 2. Chronic medical renal disease. 3. Multiple Bilateral benign-appearing renal cysts. Mike Miller MD Objective Remarks GENERAL: This is a well-nourished, well-developed patient, in no apparent distress. CARDIOVASCULAR: Regular rate and rhythm without murmurs, gallops, or rubs. RESPIRATORY: Clear to auscultation. Breath sounds equal bilaterally. No wheezes , rales, or rhonchi. GASTROINTESTINAL: Abdomen soft, non-tender, nondistended. Normal active bowel sounds MUSCULOSKELETAL: LE edema NEURO: Alert & Oriented x4 to person, place, time, situation. 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 acute/chronic kidney dz stage 4 hx temp dialysis after bowel perforation 2. volume overload slightly improved. 3. acute on chronic anemia 4. afib on anticoagulation 5. htn 6. hx prostate ca/radiation 7. hx sbo/ischemic bowel perforation/resection - Echocardiogram (11/24) --> EF 50-55% - baseline CKD stage 4 now with decline in Renal function has the etiology is not completely clear - Lexiscan showed no reversible ischemia but patient has been having runs of NSVT, - [facility] (3/2) with Dr. Tay Robles. No critical stenosis requiring intervention - Pt to undergo EP study on Saturday12/02/[address] Rea - Eliquis was resumed - Vascath placed (11/28/17) - Pt underwent HD 11/29, 11/30 - Lasix 80mg IV daily (11/30 - present), previous 80mg IV BID - Pt with good urine output - Cr 4.79 (11/28), 2.87 (12/01) - Case d/w Dr. Brito (11/30/17) - Case d/w Dr. Shaw (11/30/17) - planned AV Fistula creation on hold - DVT prophylaxis (2) Afib ICD Codes: I48.91 - Afib Status: Chronic Plan: - telemetry (11/26) showed NSVT and periods of bradycardia with causes. Currently telemetry - decrease coreg 12.5mg BID - Echocardiogram (11/24) --> EF 55-60%, moderate TR - Case d/w Dr. Tay Robles (11/26) and (11/28) - Lexiscan (11/27) --> mild hypokinesis - S/P cardiac cath (11/29) with Dr. Robles with no intervention indicated - plan for EP study with Dr. Rea on Saturday - Per nephrology Jed on hold for possible fistula placement Saturday - see above (3) Anemia ICD Codes: D64.9 - Anemia, unspecified Status: Acute Plan: - consider transfusion - have d/w Nephrology - if starting HD then would prefer to transfuse with HD - Hgb stable (4) HTN (hypertension) ICD Codes: I10 - HTN (hypertension) Status: Chronic (5) History of prostate cancer ICD Codes: Z85.46 - History of prostate cancer Status: Chronic Problem Qualifiers (1) Afib: Qualified Codes: I48.2 - Chronic atrial fibrillation (2) Anemia: Qualified Codes: N18.4 - Chronic kidney disease, stage 4 (severe); D63.1 - Anemia in chronic kidney disease Medardo James DO Nov 30, 2017 18:45
[2017-11-30] MEDS: ATORVASTATIN 10 MG TAB PO SCH (21:53)
[2017-11-30] MEDS: TERAZOSIN HCL 1 MG CAP PO SCH (21:53)
[2017-12-01] VITALS (26 sets, daily range): BP systolic 140–158; BP diastolic 78–88; PULSE 58–82; RESP 16–20; TEMP 97.7–98.2; O2SAT 94–98
[2017-12-01 08:26] LABS: AUTOMATED NEUTROPHIL # 4.8 TH/MM3 (1.8-7.7); BASOPHIL # 0.1 TH/MM3 (0-0.2); BASOPHIL % 0.8 % (0.0-2.0); EOSINOPHIL # 0.3 TH/MM3 (0-0.4); EOSINOPHIL % 4.1 % (0.0-4.0); HEMATOCRIT 28.3 % (39.0-51.0); HEMOGLOBIN 9.8 GM/DL (13.0-17.0); LYMPH % 10.5 % (9.0-44.0); LYMPHOCYTE # 0.7 TH/MM3 (1.0-4.8); MEAN CELL VOLUME 88.8 FL (80.0-100.0); MEAN CORPUSCULAR HEMOGLOBIN 30.9 PG (27.0-34.0); MEAN CORPUSCULAR HGB CONC 34.8 % (32.0-36.0); MEAN PLATELET VOLUME 8.4 FL (7.0-11.0); MONO % 11.4 % (0.0-8.0); MONOCYTE # 0.8 TH/MM3 (0-0.9); NEUT % 73.2 % (16.0-70.0); PLATELET COUNT 211 TH/MM3 (150-450); RED BLOOD COUNT 3.19 MIL/MM3 (4.50-5.90); WHITE BLOOD COUNT 6.6 TH/MM3 (4.0-11.0)
--- NOTE | 2017-12-01 08:44 | HHI.NPPN ---
Subjective Renal Failure: Chronic, Acute, Stage IV Interval History Excellent urine output. Received blood transfusion yesterday at dialysis. Review of Systems General Constitutional: Fatigue Respiratory Lungs: SOB Cardiovascular Cardiac: Edema Objective Data Data Vital Signs Date Time Temp Pulse Resp B/P (MAP) Pulse Ox O2 Delivery O2 Flow Rate FiO2 12/01/17 06:00 68 12/01/17 05:00 64 12/01/17 04:45 75 16 151/78 (102) 94 12/01/17 04:00 70 12/01/17 03:00 62 12/01/17 02:00 72 12/01/17 01:00 82 12/01/17 00:12 73 18 153/88 (109) 95 12/01/17 00:00 66 11/30/17 23:00 74 11/30/17 22:00 72 11/30/17 21:00 72 11/30/17 20:00 74 11/30/17 19:40 98.1 75 20 164/86 (112) 97 11/30/17 19:00 74 11/30/17 18:13 68 150/76 (100) 11/30/17 18:00 74 11/30/17 16:38 68 20 148/87 11/30/17 15:36 98.6 74 18 138/92 11/30/17 15:00 61 11/30/17 14:52 68 20 144/83 11/30/17 14:00 75 11/30/17 13:00 69 11/30/17 12:00 63 11/30/17 11:00 98.2 80 18 141/79 (99) 98 11/30/17 11:00 58 11/30/17 10:00 66 11/30/17 09:00 60 -: 12/01/17 0740 11/30/17 0639 Tubes & Lines: Vas-Cath Physical Exam General Appearance: Well Developed, Well Nourished, No Acute Distress, Comfortable Ears & Nose Ears & Nose Exam: Tympanic Membranes Normal Throat Throat Exam: Oral Mucosa [place] & Moist Neck Neck Exam: Neck Supple Pulmonary Resp Exam: Clear Bilaterally, Decreased Bases Cardiology CV Exam: Regular, Normal Sinus Rhythm Gastrointestinal/Abdomen GI Exam: Soft, Non-Tender, Positive Bowel Movement Musculoskeletal MS Exam: Joints Intact, Normal Tone Integumentary Skin Exam: Clear, Warm, Dry, Intact Extremeties Extremities Exam: Pedal Pulses Palpable, Trace Edema, Dependent Edema Neurologic Neuro Exam: Alert, Awake, Oriented, Speech Clear, Moving All Extremities Psychiatric Psych Exam: Appropriate Responses Assessment/Plan Discussed Condition With: Patient, Spouse Assessment Summary: RENETTA/Acute Renal Failure, Anemia of CKD, Fluid/Volume Overload, Hypertension Problem List: (1) 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 Baseline GFR 20 to 25. Renal function has declined in the past month, the etiology is not completely clear s/p VasCath placement 11/28 s/p cardiac cath on 11/29. Dialysis initiated on 11/29. Dialyzed again on 11/30. Monitor fluid and electrolytes. It is still unclear if he has reached ESRD and will need outpatient dialysis after discharge. Repeat labs tomorrow. (2) Anemia ICD Codes: D64.9 - Anemia, unspecified Status: Acute Plan: On Venover Started Epogen Blood transfusion. (3) HTN (hypertension) ICD Codes: I10 - HTN (hypertension) Status: Chronic Plan: Hydralazine continued Procardia XL 60mg PO BID Lisinopril held in light of possible RENETTA on CKD. Coreg continues Continue Lasix. May need to reduce the dose of Procardia as it can also cause edema (but not weight gain). (4) Afib ICD Codes: I48.91 - Afib Status: Chronic Plan: patient also had recurrent runs of Ventricular tachycardia. Had Cardiac cath. No intervention was needed. (5) History of prostate cancer ICD Codes: Z85.46 - History of prostate cancer Status: Chronic Plan: No signs of any obstruction on renal ultrasound. Continue to monitor without any Ocasio. Problem Qualifiers (1) Anemia: Qualified Codes: N18.4 - Chronic kidney disease, stage 4 (severe); D63.1 - Anemia in chronic kidney disease (2) Afib: Qualified Codes: I48.2 - Chronic atrial fibrillation Tai Brito MD Dec 01, 2017 08:43
[2017-12-01] MEDS: SODIUM CHLORIDE 0.9% FLUSH 10 ML FLUSH IV FLUSH SCH ×2 (09:00→21:39)
[2017-12-01 09:02] LABS: BICARBONATE 28.3 MEQ/L (21.0-32.0); CALCIUM 8.5 MG/DL (8.5-10.1); CREATININE 2.87 MG/DL (0.60-1.30); MAGNESIUM 1.7 MG/DL (1.5-2.5); PHOSPHORUS 2.4 MG/DL (2.5-4.9)
--- NOTE | 2017-12-01 09:29 | PD.CARD.PN ---
Subjective Subjective Remarks No complaints. NSR with no ventricular abnormalities noted Objective Medications Current Medications Medications (Trade) Dose Ordered Sig/Coral Route Start Time Stop Time Status Last Admin (NS Flush) 2 ml UNSCH PRN IVF 11/23/17 12:00 11/28/17 09:43 (Zyloprim) 100 mg DAILY PO 11/24/17 09:00 11/30/17 09:22 (Xanax) 0.5 mg HS PRN PO 11/23/17 14:15 11/24/17 00:27 (Aspirin Chew) 81 mg DAILY CHEW 11/24/17 09:00 11/30/17 09:22 (Lipitor) 10 mg HS PO 11/23/17 21:00 11/30/17 21:53 (Apresoline) 50 mg TID PO 11/23/17 18:00 11/30/17 18:15 (Catapres) 0.1 mg Q6H PRN PO 11/23/17 15:00 11/23/17 17:23 (Procardia Xl) 60 mg Q12HR PO 11/23/17 21:00 11/30/17 21:53 (Vitamin D3) 1,000 units DAILY PO 11/25/17 10:00 11/30/17 09:22 Sodium Chloride 1,000 ml @ 0 mls/hr Q0M PRN OTHER 11/25/17 11:17 11/30/17 16:09 (Heparin Inj) 8,000 units UNSCH PRN IV FLUSH 11/25/17 11:30 Sodium Chloride 1,000 ml @ 200 mls/hr Q5H PRN IV 11/25/17 11:17 Sodium Chloride 1,000 ml @ 0 mls/hr Q0M PRN OTHER 11/25/17 11:17 (Mannitol Inj) 12.5 gm UNSCH PRN IV 11/25/17 11:30 Albumin Human 100 ml @ 60 mls/hr UNSCH PRN IV 11/25/17 11:30 (NS Flush) 5 ml UNSCH PRN IV FLUSH 11/25/17 11:30 11/30/17 16:08 (Heparin Inj) UNSCH PRN .XX 11/25/17 11:30 11/30/17 16:08 (Gentamicin Inj) 20 mg UNSCH PRN OTHER 11/25/17 11:30 11/30/17 16:08 (Zofran Inj) 4 mg UNSCH PRN IV PUSH 11/25/17 11:30 (Tylenol) 650 mg UNSCH PRN PO 11/25/17 11:30 (Benadryl) 25 mg UNSCH PRN PO 11/25/17 11:30 (Nitrostat Sl) 0.4 mg UNSCH PRN SL 11/25/17 11:30 (Catapres) 0.1 mg UNSCH PRN PO 11/25/17 11:30 (Epogen Inj) 10,000 units UNSCH PRN IV PUSH 11/25/17 11:30 11/30/17 16:08 (Gelfoam 12 Mm/7 Mm Top) 1 foam UNSCH PRN TOP 11/25/17 11:30 (Coreg) 12.5 mg Q12HR PO 11/26/17 21:00 11/30/17 21:53 (Hytrin) 1 mg HS PO 11/27/17 21:00 11/30/17 21:53 (NS Flush) UNSCH PRN IV FLUSH 11/28/17 16:00 (Heparin Inj) UNSCH PRN IV FLUSH 11/28/17 16:00 (NS Flush) 2 ml BID IV FLUSH 11/29/17 09:00 11/30/17 21:54 (NS Flush) 2 ml UNSCH PRN IV FLUSH 11/29/17 09:00 (Atropine Inj) 0.5 mg UNSCH PRN IV PUSH 11/29/17 09:00 (Zofran Inj) 4 mg Q4H PRN IV PUSH 11/29/17 09:00 (Lasix Inj) 80 mg DAILY IV PUSH 11/30/17 09:00 11/30/17 09:23 (Eliquis) 2.5 mg BID PO 11/30/17 09:00 11/30/17 21:53 Vital Signs / I&O Vital Signs Date Time Temp Pulse Resp B/P (MAP) Pulse Ox O2 Delivery O2 Flow Rate FiO2 12/01/17 07:20 98.2 68 20 148/87 (107) 95 12/01/17 06:00 68 12/01/17 05:00 64 12/01/17 04:45 75 16 151/78 (102) 94 12/01/17 04:00 70 12/01/17 03:00 62 12/01/17 02:00 72 12/01/17 01:00 82 12/01/17 00:12 73 18 153/88 (109) 95 12/01/17 00:00 66 11/30/17 23:00 74 11/30/17 22:00 72 11/30/17 21:00 72 11/30/17 20:00 74 11/30/17 19:40 98.1 75 20 164/86 (112) 97 11/30/17 19:00 74 11/30/17 18:13 68 150/76 (100) 11/30/17 18:00 74 11/30/17 16:38 68 20 148/87 11/30/17 15:36 98.6 74 18 138/92 11/30/17 15:00 61 11/30/17 14:52 68 20 144/83 11/30/17 14:00 75 11/30/17 13:00 69 11/30/17 12:00 63 11/30/17 11:00 98.2 80 18 141/79 (99) 98 11/30/17 11:00 58 11/30/17 10:00 66 I/O 11/30/17 11/30/17 11/30/17 12/01/17 12/01/17 12/01/17 07:00 15:00 23:00 07:00 15:00 23:00 Intake Total 240 ml 2120 ml 350 ml Output Total 300 ml 3130 ml 1350 ml Balance -60 ml -1010 ml -1000 ml Intake Oral 240 ml 1320 ml 350 ml Packed Cells 800 ml Output Urine Total 300 ml 2130 ml 1350 ml Hemodialysis 1000 ml # Bowel Movements 0 Laboratory Laboratory Tests Test 12/01/17 07:40 White Blood Count 6.6 TH/MM3 Red Blood Count 3.19 MIL/MM3 Hemoglobin 9.8 GM/DL Hematocrit 28.3 % Mean Corpuscular Volume 88.8 FL Mean Corpuscular Hemoglobin 30.9 PG Mean Corpuscular Hemoglobin Concent 34.8 % Red Cell Distribution Width 17.0 % Platelet Count 211 TH/MM3 Mean Platelet Volume 8.4 FL Neutrophils (%) (Auto) 73.2 % Lymphocytes (%) (Auto) 10.5 % Monocytes (%) (Auto) 11.4 % Eosinophils (%) (Auto) 4.1 % Basophils (%) (Auto) 0.8 % Neutrophils # (Auto) 4.8 TH/MM3 Lymphocytes # (Auto) 0.7 TH/MM3 Monocytes # (Auto) 0.8 TH/MM3 Eosinophils # (Auto) 0.3 TH/MM3 Basophils # (Auto) 0.1 TH/MM3 CBC Comment DIFF FINAL Differential Comment Blood Urea Nitrogen 30 MG/DL Creatinine 2.87 MG/DL Random Glucose 87 MG/DL Calcium Level 8.5 MG/DL Phosphorus Level 2.4 MG/DL Magnesium Level 1.7 MG/DL Sodium Level 142 MEQ/L Potassium Level 3.6 MEQ/L Chloride Level 106 MEQ/L Carbon Dioxide Level 28.3 MEQ/L Anion Gap 8 MEQ/L Estimat Glomerular Filtration Rate 21 ML/MIN Assessment and Plan Assessment and Plan For EP study tomorrow Tay Robles MD Dec 01, 2017 09:29
[2017-12-01] MEDS: NIFEdipine 60 MG SUSTAINED RELEASE TAB PO SCH ×2 (09:35→21:37)
[2017-12-01] MEDS: hydrALAZINE HCL 50 MG TAB PO SCH ×3 (09:35→17:29)
[2017-12-01] MEDS: CHOLECALCIFEROL (VIT D3) 1000 UNIT TAB PO SCH (09:35)
[2017-12-01] MEDS: FUROSEMIDE 40 MG/4 ML VIAL IV PUSH SCH (09:35)
[2017-12-01] MEDS: APIXABAN 2.5 MG TABLET PO SCH ×2 (09:35→21:38)
[2017-12-01] MEDS: CARVEDILOL 12.5 MG TAB PO SCH ×2 (09:35→21:38)
[2017-12-01] MEDS: ASPIRIN 81 MG CHEW TAB CHEW SCH (09:36)
[2017-12-01] MEDS: ALLOPURINOL 100 MG TAB PO SCH (09:36)
--- NOTE | 2017-12-01 12:23 | HHI.PR ---
Subjective Remarks No new complaints. Objective Vitals Vital Signs Date Time Temp Pulse Resp B/P (MAP) Pulse Ox O2 Delivery O2 Flow Rate FiO2 12/01/17 07:20 98.2 68 20 148/87 (107) 95 12/01/17 06:00 68 12/01/17 05:00 64 12/01/17 04:45 75 16 151/78 (102) 94 12/01/17 04:00 70 12/01/17 03:00 62 12/01/17 02:00 72 12/01/17 01:00 82 12/01/17 00:12 73 18 153/88 (109) 95 12/01/17 00:00 66 11/30/17 23:00 74 11/30/17 22:00 72 11/30/17 21:00 72 11/30/17 20:00 74 11/30/17 19:40 98.1 75 20 164/86 (112) 97 11/30/17 19:00 74 11/30/17 18:13 68 150/76 (100) 11/30/17 18:00 74 11/30/17 16:38 68 20 148/87 11/30/17 15:36 98.6 74 18 138/92 11/30/17 15:00 61 11/30/17 14:52 68 20 144/83 11/30/17 14:00 75 11/30/17 13:00 69 Result Diagram: 12/01/17 0740 12/01/17 0740 Imaging Last Impressions Myocardial Perfusion Scan Nuc Med 11/27/17 0000 Signed Impressions: Service Date/Time: Monday, November 27, 2017 14:29 - CONCLUSION: Mild global hypokinesis. No reversible ischemic segments are identified. RISK CATEGORY: Intermediate (1-3%% Annual Mortality Rate) Tay Morelos MD Chest X-Ray 11/27/17 0000 Signed Impressions: Service Date/Time: Monday, November 27, 2017 10:50 - CONCLUSION: Mild congestive failure probable trace fluid on the left Austin Chu MD FACR Upper Extremity Ultrasound 11/23/17 0000 Signed Impressions: Service Date/Time: Thursday, November 23, 2017 20:28 - CONCLUSION: No DVT is identified within either upper extremity. Froylan Sahu MD Renal Ultrasound 11/23/17 0000 Signed Impressions: Service Date/Time: Thursday, November 23, 2017 14:32 - CONCLUSION: 1. No evidence of hydronephrosis. 2. Chronic medical renal disease. 3. Multiple Bilateral benign-appearing renal cysts. Mike Miller MD Objective Remarks GENERAL: This is a well-nourished, well-developed patient, in no apparent distress. CARDIOVASCULAR: Regular rate and rhythm without murmurs, gallops, or rubs. RESPIRATORY: Clear to auscultation. Breath sounds equal bilaterally. No wheezes , rales, or rhonchi. GASTROINTESTINAL: Abdomen soft, non-tender, nondistended. Normal active bowel sounds MUSCULOSKELETAL: LE edema NEURO: Alert & Oriented x4 to person, place, time, situation. 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 acute/chronic kidney dz stage 4 hx temp dialysis after bowel perforation 2. volume overload slightly improved. 3. acute on chronic anemia 4. afib on anticoagulation 5. htn 6. hx prostate ca/radiation 7. hx sbo/ischemic bowel perforation/resection - Echocardiogram (11/24) --> EF 50-55% - baseline CKD stage 4 now with decline in Renal function has the etiology is not completely clear - Lexiscan showed no reversible ischemia but patient has been having runs of NSVT, - [facility] (11/29) with Dr. Tay Robles. No critical stenosis requiring intervention - Pt to undergo EP study on Saturday12/02/[address] Álvaro Adkins was resumed - Vascath placed (11/28/17) - Pt underwent HD 11/29, 11/30 - Lasix 80mg IV daily (11/30 - present), previous 80mg IV BID - Pt with good urine output - Cr 4.79 (11/28), 2.87 (12/01) - Case d/w Dr. Brito (11/30/17) - Case d/w Dr. Shaw (11/30/17) - planned AV Fistula creation on hold - DVT prophylaxis 12/01/17 - await results of EP study - Renal fxn continues to improve - repeat BMP, Mag, phos in AM - d/w Nephrology 12/02. Hopefully, pt can be discharge to home without HD. (2) Afib ICD Codes: I48.91 - Afib Status: Chronic Plan: - telemetry (11/26) showed NSVT and periods of bradycardia with causes. Currently telemetry - decrease coreg 12.5mg BID - Echocardiogram (11/24) --> EF 55-60%, moderate TR - Case d/w Dr. Tay Robles (11/26) and (11/28) - Lexiscan (11/27) --> mild hypokinesis - S/P cardiac cath (11/29) with Dr. Robles with no intervention indicated - plan for EP study with Dr. Rea on Saturday - Per nephrology Eliquis on hold for possible fistula placement Saturday - see above (3) Anemia ICD Codes: D64.9 - Anemia, unspecified Status: Acute Plan: - consider transfusion - have d/w Nephrology - if starting HD then would prefer to transfuse with HD - Hgb stable (4) HTN (hypertension) ICD Codes: I10 - HTN (hypertension) Status: Chronic (5) History of prostate cancer ICD Codes: Z85.46 - History of prostate cancer Status: Chronic Assessment and Plan Patient examined. Assessment and plan formulated with Ashely Mercedes PA-C. I agree with the above. Problem Qualifiers (1) Afib: Qualified Codes: I48.2 - Chronic atrial fibrillation (2) Anemia: Qualified Codes: N18.4 - Chronic kidney disease, stage 4 (severe); D63.1 - Anemia in chronic kidney disease Medardo James DO Dec 01, 2017 12:23
[2017-12-01] MEDS: TERAZOSIN HCL 1 MG CAP PO SCH (21:37)
[2017-12-01] MEDS: ATORVASTATIN 10 MG TAB PO SCH (21:37)
[2017-12-02] VITALS (21 sets, daily range): BP systolic 144–161; BP diastolic 77–93; PULSE 52–86; RESP 18–20; TEMP 97.1–98.3; O2SAT 96–98
--- NOTE | 2017-12-02 07:46 | HHI.NPPN ---
Subjective Renal Failure: Chronic, Acute, Stage IV Interval History Non oliguric. Labs are pending. To have EP study today. Review of Systems General Constitutional: Fatigue Respiratory Lungs: SOB Cardiovascular Cardiac: Edema Objective Data Data Vital Signs Date Time Temp Pulse Resp B/P (MAP) Pulse Ox O2 Delivery O2 Flow Rate FiO2 12/02/17 06:00 73 12/02/17 05:00 71 12/02/17 04:00 Room Air 12/02/17 04:00 98.2 86 18 161/83 (109) 97 12/02/17 04:00 86 12/02/17 03:00 74 12/02/17 02:00 79 12/02/17 01:00 78 12/02/17 00:00 64 12/02/17 00:00 Room Air 12/02/17 00:00 98.3 64 18 160/93 (115) 97 12/01/17 23:00 74 12/01/17 22:00 73 12/01/17 21:00 77 12/01/17 20:00 98.0 72 18 158/85 (109) 98 12/01/17 20:00 72 12/01/17 18:00 74 12/01/17 17:00 64 12/01/17 16:00 64 12/01/17 15:00 97.7 60 18 140/79 (99) 12/01/17 15:00 60 12/01/17 14:00 64 12/01/17 13:00 64 12/01/17 12:00 64 12/01/17 11:00 97.8 58 18 140/78 (98) 12/01/17 11:00 62 12/01/17 10:00 64 12/01/17 09:00 68 12/01/17 08:00 68 -: 12/01/17 0740 12/01/17 0740 Tubes & Lines: Vas-Cath Physical Exam General Appearance: Well Developed, Well Nourished, No Acute Distress, Comfortable Ears & Nose Ears & Nose Exam: Tympanic Membranes Normal Throat Throat Exam: Oral Mucosa Zoar & Moist Neck Neck Exam: Neck Supple Pulmonary Resp Exam: Clear Bilaterally, Decreased Bases Cardiology CV Exam: Regular, Normal Sinus Rhythm Gastrointestinal/Abdomen GI Exam: Soft, Non-Tender, Positive Bowel Movement Musculoskeletal MS Exam: Joints Intact, Normal Tone Integumentary Skin Exam: Clear, Warm, Dry, Intact Extremeties Extremities Exam: Pedal Pulses Palpable, Trace Edema, Dependent Edema Neurologic Neuro Exam: Alert, Awake, Oriented, Speech Clear, Moving All Extremities Psychiatric Psych Exam: Appropriate Responses Assessment/Plan Discussed Condition With: Patient, Spouse Assessment Summary: RENETTA/Acute Renal Failure, Anemia of CKD, Fluid/Volume Overload, Hypertension Problem List: (1) 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 Baseline GFR 20 to 25. Renal function has declined in the past month, the etiology is not completely clear s/p VasCath placement 11/28 s/p cardiac cath on 11/29. Dialysis initiated on 11/29. Dialyzed again on 11/30. Monitor fluid and electrolytes. It is still unclear if he has reached ESRD and will need outpatient dialysis after discharge. Monitor labs. (2) Anemia ICD Codes: D64.9 - Anemia, unspecified Status: Acute Plan: On Venover Started Epogen Blood transfusion. (3) HTN (hypertension) ICD Codes: I10 - HTN (hypertension) Status: Chronic Plan: Hydralazine continued Procardia XL 60mg PO BID Lisinopril held in light of possible RENETTA on CKD. Coreg continues Continue Lasix. May need to reduce the dose of Procardia as it can also cause edema (but not weight gain). (4) Afib ICD Codes: I48.91 - Afib Status: Chronic Plan: patient also had recurrent runs of Ventricular tachycardia. Had Cardiac cath. No intervention was needed. To have EP study today. No recurrence. (5) History of prostate cancer ICD Codes: Z85.46 - History of prostate cancer Status: Chronic Plan: No signs of any obstruction on renal ultrasound. Continue to monitor without any Ocasio. Problem Qualifiers (1) Anemia: Qualified Codes: N18.4 - Chronic kidney disease, stage 4 (severe); D63.1 - Anemia in chronic kidney disease (2) Afib: Qualified Codes: I48.2 - Chronic atrial fibrillation Tai Brito MD Dec 02, 2017 07:46
[2017-12-02 08:10] LABS: ALBUMIN 2.6 GM/DL (3.4-5.0); BICARBONATE 27.6 MEQ/L (21.0-32.0); CALCIUM 8.3 MG/DL (8.5-10.1); CREATININE 3.33 MG/DL (0.60-1.30); PHOSPHORUS 2.4 MG/DL (2.5-4.9)
--- NOTE | 2017-12-02 08:37 | PD.CARD.PN ---
Subjective Subjective Remarks TMB) of SVT yesterday evening, patient with no symptoms from this. Patient denies any chest pain, shortness breath, or palpitations. Planning for EP study this afternoon. Objective Medications Current Medications Medications (Trade) Dose Ordered Sig/Coral Route Start Time Stop Time Status Last Admin (NS Flush) 2 ml UNSCH PRN IVF 11/23/17 12:00 11/28/17 09:43 (Zyloprim) 100 mg DAILY PO 11/24/17 09:00 12/01/17 09:36 (Xanax) 0.5 mg HS PRN PO 11/23/17 14:15 11/24/17 00:27 (Aspirin Chew) 81 mg DAILY CHEW 11/24/17 09:00 12/01/17 09:36 (Lipitor) 10 mg HS PO 11/23/17 21:00 12/01/17 21:37 (Apresoline) 50 mg TID PO 11/23/17 18:00 12/01/17 17:29 (Catapres) 0.1 mg Q6H PRN PO 11/23/17 15:00 11/23/17 17:23 (Procardia Xl) 60 mg Q12HR PO 11/23/17 21:00 12/01/17 21:37 (Vitamin D3) 1,000 units DAILY PO 11/25/17 10:00 12/01/17 09:35 Sodium Chloride 1,000 ml @ 0 mls/hr Q0M PRN OTHER 11/25/17 11:17 11/30/17 16:09 (Heparin Inj) 8,000 units UNSCH PRN IV FLUSH 11/25/17 11:30 Sodium Chloride 1,000 ml @ 200 mls/hr Q5H PRN IV 11/25/17 11:17 Sodium Chloride 1,000 ml @ 0 mls/hr Q0M PRN OTHER 11/25/17 11:17 (Mannitol Inj) 12.5 gm UNSCH PRN IV 11/25/17 11:30 Albumin Human 100 ml @ 60 mls/hr UNSCH PRN IV 11/25/17 11:30 (NS Flush) 5 ml UNSCH PRN IV FLUSH 11/25/17 11:30 11/30/17 16:08 (Heparin Inj) UNSCH PRN .XX 11/25/17 11:30 11/30/17 16:08 (Gentamicin Inj) 20 mg UNSCH PRN OTHER 11/25/17 11:30 11/30/17 16:08 (Zofran Inj) 4 mg UNSCH PRN IV PUSH 11/25/17 11:30 (Tylenol) 650 mg UNSCH PRN PO 11/25/17 11:30 (Benadryl) 25 mg UNSCH PRN PO 11/25/17 11:30 (Nitrostat Sl) 0.4 mg UNSCH PRN SL 11/25/17 11:30 (Catapres) 0.1 mg UNSCH PRN PO 11/25/17 11:30 (Epogen Inj) 10,000 units UNSCH PRN IV PUSH 11/25/17 11:30 11/30/17 16:08 (Gelfoam 12 Mm/7 Mm Top) 1 foam UNSCH PRN TOP 11/25/17 11:30 (Coreg) 12.5 mg Q12HR PO 11/26/17 21:00 12/01/17 21:38 (Hytrin) 1 mg HS PO 11/27/17 21:00 12/01/17 21:37 (NS Flush) UNSCH PRN IV FLUSH 11/28/17 16:00 (Heparin Inj) UNSCH PRN IV FLUSH 11/28/17 16:00 (NS Flush) 2 ml BID IV FLUSH 11/29/17 09:00 12/01/17 21:39 (NS Flush) 2 ml UNSCH PRN IV FLUSH 11/29/17 09:00 (Atropine Inj) 0.5 mg UNSCH PRN IV PUSH 11/29/17 09:00 (Zofran Inj) 4 mg Q4H PRN IV PUSH 11/29/17 09:00 (Lasix Inj) 80 mg DAILY IV PUSH 11/30/17 09:00 12/01/17 09:35 (Eliquis) 2.5 mg BID PO 11/30/17 09:00 12/01/17 21:38 Vital Signs / I&O Vital Signs Date Time Temp Pulse Resp B/P (MAP) Pulse Ox O2 Delivery O2 Flow Rate FiO2 12/02/17 06:00 73 12/02/17 05:00 71 12/02/17 04:00 Room Air 12/02/17 04:00 98.2 86 18 161/83 (109) 97 12/02/17 04:00 86 12/02/17 03:00 74 12/02/17 02:00 79 12/02/17 01:00 78 12/02/17 00:00 64 12/02/17 00:00 Room Air 12/02/17 00:00 98.3 64 18 160/93 (115) 97 12/01/17 23:00 74 12/01/17 22:00 73 12/01/17 21:00 77 12/01/17 20:00 98.0 72 18 158/85 (109) 98 12/01/17 20:00 72 12/01/17 18:00 74 12/01/17 17:00 64 12/01/17 16:00 64 12/01/17 15:00 97.7 60 18 140/79 (99) 12/01/17 15:00 60 12/01/17 14:00 64 12/01/17 13:00 64 12/01/17 12:00 64 12/01/17 11:00 97.8 58 18 140/78 (98) 12/01/17 11:00 62 12/01/17 10:00 64 12/01/17 09:00 68 I/O 12/01/17 12/01/17 12/01/17 12/02/17 12/02/17 12/02/17 07:00 15:00 23:00 07:00 15:00 23:00 Intake Total 350 ml 670 ml 480 ml Output Total 1350 ml 1100 ml 1000 ml Balance -1000 ml -430 ml -520 ml Intake Oral 350 ml 670 ml 480 ml Output Urine Total 1350 ml 1100 ml 1000 ml # Bowel Movements 0 0 Physical Exam GENERAL: Well-developed well-nourished. In no acute distress. NECK: No carotid bruits. No JVD. CARDIOVASCULAR: Irregular controlled rate and irregular rhythm. No murmur appreciated. RESPIRATORY: No accessory muscle use. Clear to auscultation. Breath sounds equal bilaterally. MUSCULOSKELETAL: No clubbing or cyanosis. No edema. NEUROLOGICAL: Awake and alert. Normal speech. Laboratory Laboratory Tests Test 12/02/17 06:25 Blood Urea Nitrogen 41 MG/DL Creatinine 3.33 MG/DL Random Glucose 82 MG/DL Albumin 2.6 GM/DL Calcium Level 8.3 MG/DL Phosphorus Level 2.4 MG/DL Sodium Level 143 MEQ/L Potassium Level 3.9 MEQ/L Chloride Level 106 MEQ/L Carbon Dioxide Level 27.6 MEQ/L Anion Gap 9 MEQ/L Estimat Glomerular Filtration Rate 18 ML/MIN Imaging Last Impressions Catheter Placement X-Ray 11/28/17 0000 Signed Impressions: Service Date/Time: November 14:59 - CONCLUSION: Uncomplicated line placement as above. Tay Morelos MD Myocardial Perfusion Scan Nuc Med 11/27/17 0000 Signed Impressions: Service Date/Time: Monday, November 27, 2017 14:29 - CONCLUSION: Mild global hypokinesis. No reversible ischemic segments are identified. RISK CATEGORY: Intermediate (1-3%% Annual Mortality Rate) Tay Morelos MD Chest X-Ray 11/27/17 0000 Signed Impressions: Service Date/Time: Monday, November 27, 2017 10:50 - CONCLUSION: Mild congestive failure probable trace fluid on the left Austin Chu MD FACR Upper Extremity Ultrasound 11/23/17 0000 Signed Impressions: Service Date/Time: Thursday, November 23, 2017 20:28 - CONCLUSION: No DVT is identified within either upper extremity. Froylan Sahu MD Renal Ultrasound 11/23/17 0000 Signed Impressions: Service Date/Time: Thursday, November 23, 2017 14:32 - CONCLUSION: 1. No evidence of hydronephrosis. 2. Chronic medical renal disease. 3. Multiple Bilateral benign-appearing renal cysts. Mkie Miller MD Assessment and Plan Assessment and Plan 82-year-old male with past medical history of A. fib, HTN, CKD stage IV who presented for shortness of breath, NSVT, and heart failure. NSVT: Echo with normal EF. C 3/ w/ no intervention indicated. EP consulted , for EP study today. A. fib: Rate controlled on carvedilol. On Jed. Urban Lujan Dec 02, 2017 08:37
[2017-12-02] MEDS: SODIUM CHLORIDE 0.9% FLUSH 10 ML FLUSH IV FLUSH SCH ×2 (09:00→20:52)
[2017-12-02] MEDS: ASPIRIN 81 MG CHEW TAB CHEW SCH (09:08)
[2017-12-02] MEDS: ALLOPURINOL 100 MG TAB PO SCH (09:08)
[2017-12-02] MEDS: NIFEdipine 60 MG SUSTAINED RELEASE TAB PO SCH ×2 (09:08→20:51)
[2017-12-02] MEDS: hydrALAZINE HCL 50 MG TAB PO SCH ×3 (09:08→18:00)
[2017-12-02] MEDS: CARVEDILOL 12.5 MG TAB PO SCH ×2 (09:08→20:54)
[2017-12-02] MEDS: FUROSEMIDE 40 MG/4 ML VIAL IV PUSH SCH (09:09)
[2017-12-02] MEDS: APIXABAN 2.5 MG TABLET PO SCH ×2 (09:09→20:50)
[2017-12-02] MEDS: CHOLECALCIFEROL (VIT D3) 1000 UNIT TAB PO SCH (09:09)
--- NOTE | 2017-12-02 10:33 | HHI.PR ---
Subjective Remarks doing ok. no complaints Objective Vitals heart reg lung cta abd s/nt ext no edema Vital Signs Date Time Temp Pulse Resp B/P (MAP) Pulse Ox O2 Delivery O2 Flow Rate FiO2 12/02/17 06:00 73 12/02/17 05:00 71 12/02/17 04:00 Room Air 12/02/17 04:00 98.2 86 18 161/83 (109) 97 12/02/17 04:00 86 12/02/17 03:00 74 12/02/17 02:00 79 12/02/17 01:00 78 12/02/17 00:00 64 12/02/17 00:00 Room Air 12/02/17 00:00 98.3 64 18 160/93 (115) 97 12/01/17 23:00 74 12/01/17 22:00 73 12/01/17 21:00 77 12/01/17 20:00 98.0 72 18 158/85 (109) 98 12/01/17 20:00 72 12/01/17 18:00 74 12/01/17 17:00 64 12/01/17 16:00 64 12/01/17 15:00 97.7 60 18 140/79 (99) 12/01/17 15:00 60 12/01/17 14:00 64 12/01/17 13:00 64 12/01/17 12:00 64 12/01/17 11:00 97.8 58 18 140/78 (98) 12/01/17 11:00 62 Result Diagram: 12/01/17 0740 12/02/17 0625 Imaging Last Impressions Myocardial Perfusion Scan Nuc Med 11/27/17 0000 Signed Impressions: Service Date/Time: Monday, November 27, 2017 14:29 - CONCLUSION: Mild global hypokinesis. No reversible ischemic segments are identified. RISK CATEGORY: Intermediate (1-3%% Annual Mortality Rate) Tay Morelos MD Chest X-Ray 11/27/17 0000 Signed Impressions: Service Date/Time: Monday, November 27, 2017 10:50 - CONCLUSION: Mild congestive failure probable trace fluid on the left Austin Chu MD FACR Upper Extremity Ultrasound 11/23/17 0000 Signed Impressions: Service Date/Time: Thursday, November 23, 2017 20:28 - CONCLUSION: No DVT is identified within either upper extremity. Froylan Sahu MD Renal Ultrasound 11/23/17 0000 Signed Impressions: Service Date/Time: Thursday, November 23, 2017 14:32 - CONCLUSION: 1. No evidence of hydronephrosis. 2. Chronic medical renal disease. 3. Multiple Bilateral benign-appearing renal cysts. 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 acute/chronic kidney dz stage 4 hx temp dialysis after bowel perforation 2. volume overload 3. acute on chronic anemia 4. afib on anticoagulation 5. htn 6. hx prostate ca/radiation 7. hx sbo/ischemic bowel perforation/resection - Echocardiogram (11/24) --> EF 50-55% - baseline CKD stage 4 now with decline in Renal function has the etiology is not completely clear - Lexiscan showed no reversible ischemia but patient has been having runs of NSVT, - LHC (11/29) with Dr. Tay Robles. No critical stenosis requiring intervention - Pt to undergo EP study today with Dr. Rea- Jed was resumed for the EPS - Vascath placed (11/28/17) - Pt underwent HD 11/29, 11/30 - Lasix 80mg IV daily (11/30 - present), previous 80mg IV BID - Pt with good urine output -cr trending up again today. - Case d/w Dr. Brito ..luan was planned. - Case d/w Dr. Shaw (11/30/17) - planned AV Fistula creation on hold - DVT prophylaxis (2) Afib ICD Codes: I48.91 - Afib Status: Chronic Plan: - telemetry (11/26) showed NSVT and periods of bradycardia with causes. Currently telemetry - decrease coreg 12.5mg BID - Echocardiogram (11/24) --> EF 55-60%, moderate TR - Case d/w Dr. Tay Robles (11/26) and (11/28) - Lexiscan (11/27) --> mild hypokinesis - S/P cardiac cath (11/29) with Dr. Robles with no intervention indicated - plan for EP study with Dr. Rea on Saturday - Per nephrology Eliquis on hold for possible fistula placement Saturday - see above (3) Anemia ICD Codes: D64.9 - Anemia, unspecified Status: Acute Plan: - s/p 2 units blood. (4) HTN (hypertension) ICD Codes: I10 - HTN (hypertension) Status: Chronic (5) History of prostate cancer ICD Codes: Z85.46 - History of prostate cancer Status: Chronic Problem Qualifiers (1) Afib: Qualified Codes: I48.2 - Chronic atrial fibrillation (2) Anemia: Qualified Codes: N18.4 - Chronic kidney disease, stage 4 (severe); D63.1 - Anemia in chronic kidney disease Chauncey Ashton MD Dec 02, 2017 10:33
[2017-12-02] MEDS ORDERED: ePHEDrine/NS 25 MG/5 ML SYRINGE IV ONE (12:00)
[2017-12-02] MEDS ORDERED: PROPOFOL 200 MG/20 ML AMP IV ONE (12:00)
--- NOTE | 2017-12-02 12:08 | MA ---
cc: Tay Robles MD 11/29/2017 Patient was prepped and draped in usual fashion. A 6 sheath was inserted percutaneously into the right femoral artery. Coronary angiography was performed with Ronan preformed catheters. RESULTS: Aortic pressure was 145/63. LEFT VENTRICULOGRAPHY: Not done. CORONARY ARTERIOGRAPHY: The left main coronary artery was normal. Left anterior descending artery demonstrated some minor luminal irregularities compromising the by no more than 10% in the proximal portion. Distal portion of artery of free from disease, as was first diagonal branch. Left circumflex artery arose from the left main, was essentially normal throughout its course. Right coronary is anatomically dominant and normal throughout its course. At the end of the procedure, hemostasis was achieved with direct pressure. CONCLUSIONS: Normal coronary arteries. MD MARY Prasad/CAROLE , 09:01 AM , 12:47 PM
--- NOTE | 2017-12-02 17:27 | CATHPROC ---
Patient Name: ANNETTE ALMEIDA Study #: [id number] Initial MD: Ramandeep Rea Date of : 1935 Study Date: 12/02/2017 Cardiac Catheterization Report 12/02/2017 5:27:16 PM Financial #: [id number] 1 of 9 Patient Name: ANNETTE ALMEIDA Study #: [id number] Initial MD: Ramandeep Rea Date of : 1935 Study Date: 12/02/2017 Entire Case Report Patient Information Patient Name ANNETTE ALMEIDA Date of 1935 Age 82 years Financial # [id number] Gender M AlternateID Lab Number 2 Room Number 250 Height (in) 72.0 Height (cm) 182.9 BSA 2.15 Weight (lbs) 203.5 Weight (kg) 92.5 Patient Address/Phone Number Home Address [facility] Home Phone Number [facility] [phone] Study Information Study Number Admission Scheduled Start Study Start [id number] Nov 23 2017 1:35PM 12/02/2017 Dec 02 2017 3:53PM [place] [facility] Electrophysiology Study Admit Source Facility Department Other [facility] - Pipe Tester Physician and Clinical Staff Initial Ramandeep Cummings Pick Remover Casandra Curran,SWITCH CREW SUPERVISOR TECH2 Pick Remover Viry Santoro,AUTOMOTIVE SALES MANAGER Other Anesthesia, ENVELOPE CUTTER Other Wagner RN, Ana Maria Lazo RN Scrub Logan Grijalva,RT(R) Procedures Performed Procedure Ablation Procedure 12/02/2017 5:27:16 PM Financial #: [id number] 2 of 9 Patient Name: ANNETTE ALMEIDA Study #: [id number] Initial MD: Ramandeep Rea Date of : 1935 Study Date: 12/02/2017 Equipment Time Career Development Coordinator/Teacher Description Size Mfg Part Number Used/Scraped [id number] 15:55 MEDLINE INDUST[employer]ES PACK, CCL CUSTOM * Used *[id number] 15:55 MEDLINE PACER TERAN, LIMB * 2530 *[id number] Used [id number] 16:28 NAMIC TUBING, HIGH PRESSURE 48" 48" Used *[id number] 15:55 PRIDE MEDICAL BLANKET,WARM AIR CCL * Used *[id number] 043600 16:18 [employer] MED[employer] CATHETER, JSN, QUAD FR 5 Used *[id number] 16:18 [employer] MEDICAL CATHETER, JSN, QUAD FR 5 Used *[id number] 16:18 [employer] MEDICAL CATHETER, JSN, QUAD FR 5 Used *[id number] 16:18 [employer] MEDICAL CATHETER, JSN, QUAD FR 5 Used *[id number] [id number] 16:17 [employer] MEDICAL SHEATH, EPS, FR5 FAST CATH FR 5 Used *[id number] 683288 16:17 [employer] MEDICAL SHEATH, EPS, FR5 FAST CATH FR 5 Used *[id number] 16:17 [employer] MEDICAL SHEATH, EPS, FR5 FAST CATH FR 5 Used *[id number] 802268 16:18 [employer] MEDICAL SHEATH, EPS, FR6 FAST CATH FR 6 Used *[id number] 16:43 [employer] MEDICAL SHEATH, EPS, FR6 FAST CATH FR 6 Used *[id number] Insurance Information Insurance Payor Medicare, Private Health Insurance Third Libertarian Third Libertarian Number [facility] FHCMCR[facility] History: Current Medications Medication Dosage/Unit Route Frequency Last Date/Time Taken Beta Reyna Statins (any) History: Allergies Allergy Reaction No Known Allergies 12/02/2017 5:27:16 PM Financial #: [id number] Patient Name: ANNETTE ALMEIDA Study #: [id number] Initial MD: Ramandeep Rea Date of : 1935 Study Date: 12/02/2017 History: Risk Factors Family History of Hypertension Dyslipidemia Previous CA Previous Heart Failure Premature CAD Yes Yes No No No Prior Valve Prior PCI Prior CABG Surgery No No No Cerebrovascular Peripheral Artery Chronic Lung On Dialysis Diabetes Disease Disease Disease No No No Yes No History: Symptoms/Diagnosis Selection Items Palpitations SOB History: Stress Tests Stress or Imaging Studies Performed No History: Arrhythmias Selection Items Atrial fibrillation Non-sustained VT History: Other Disease Selection Items Renal Failure/Insufficiency History: Other Current Smoker Method Quit Packs a Day Years Used Pack Years No Cigarettes 40 Years Ago 1 20 20 Labs Hgb (g/dl) Hct (%) RBC (MIL/MM3) WBC (l/cumm) Platelets (thousands) 11.60-17.00 35.00-51.00 4.00-5.90 4.00-11.00 150.00-450.00 7.4 22 2.4 6.7 242 Glucose (mg/dl) BUN (mg/dl) Creatinine (mg/dl) BUN:Creatinine (1:x) 74.00-106.00 7.00-18.00 0.50-1.30 10.00-20.00 90 73 4.8 15.2 Na (meq/l) K (meq/l) 136.00-145.00 3.50-5.10 143 3.9 INR (PTT:PT) 0.90-1.10 1.2 12/02/2017 5:27:16 PM Financial #: [id number] 4 of 9 Patient Name: ANNETTE ALMEIDA Study #: [id number] Initial MD: Ramandeep Rea Date of : 1935 Study Date: 8 Medication Medication Total Dose (Bolus/Oral) Medication Total Dosage/Unit 1% XYLOCAINE 20 mL Medications (Bolus/Oral) Medication Time Given Dosage/Unit Administered By Reason 1% XYLOCAINE 12/02/2017 4:44:55 PM 20 mL Ramandeep Rea 20 mL 1% XYLOCAINE given in lab by Ramandeep Rea in Right Groin via Subcutaneous. Ordered by Carmencita Rea. Medication (Drip) Medication Time Given Dosage/Unit Concentration/Unit Diluent (ml) Solution ISUPREL 12/02/2017 5:08:06 PM 4 mcg/min 1 mg 250 NaCl .9 4 mcg/min ISUPREL given in lab by Anesthesia, ENVELOPE CUTTER via Peripheral IV. Pump/Drip Flow = 60 ml/hr using NaCl .9 with a concentration of 1 mg in 250 ml. Ordered by Ramandeep Rea. Reason: As per physicians verbal order. IV Solutions 12/02/2017 4:48:28 PM 0 mL (IV) 500 NaCl .9 IV Solutions given in lab by Anesthesia, ENVELOPE CUTTER in Right Groin via 6FR Fast Cath sheath. Pump/Drip Flow = 20 ml/hr using NaCl .9. Ordered by Ramandeep Rea. 12/02/2017 5:27:16 PM Financial #: [id number] 5 of 9 Patient Name: ANNETTE ALMEIDA Study #: [id number] Initial MD: Ramandeep Rea Date of : 1935 Study Date: 12/02/2017 Initial Case Assessment Circulatory - Right Pulses Dorsalis Pedis 1 Scale (0,1,2,3,4,d) Circulatory - Left Pulses Dorsalis Pedis 1 Scale (0,1,2,3,4,d) Circulatory - Lower Extremities Color Lower Right Color Lower Left Normal Normal Final Case Assessment Cardiovascular HR NIBP Chest Pain 72 158/68 0 Edema Present Skin color Skin Mild Normal Warm Circulatory - Right Pulses Dorsalis Pedis 1 Scale (0,1,2,3,4,d) Circulatory - Left Pulses Dorsalis Pedis 1 Scale (0,1,2,3,4,d) Circulatory - Lower Extremities Color Lower Right Color Lower Left Normal Normal Neurological State Oriented to time-place- Alert Moves all extremities person Respiration - General Respiration Rate SpO2 (%) (B/min) 16 94 12/02/2017 5:27:16 PM Financial #: [id number] 6 of 9 Patient Name: ANNETTE ALMEIDA Study #: [id number] Initial MD: Ramandeep Rea Date of : 1935 Study Date: 12/02/2017 Vitals Summary Pain Time HR NIBP SpO2 Resp Temp EtCO2 Apnea Pravin Kate Comment Level 16:31:09 72 223/100 97.0 17 Chronological Log Time Study Chronological Log 16:04:03 Patient arrived via Bed. 16:04:04 Patient Name, D.O.B, / Armband Verified By R.N. 16:04:05 Consent signed by the physician and the patient and verified by the Pipe Tester staff. 16:04:06 Pre-op and post- op instructions given; patient acknowledges understanding of instructions. 16:04:07 Verbal Stimulation=2 Physical Stimulation=2 Airway=2 Respiration=2 TOTAL=8. (0=absent, 1=li mited, 2=present) 16:04:19 Anesthesia at bedside. Assumes care of patient. 16:04:24 Patient has been NPO for More than 6Hrs. 16:04:25 Skin Breakdown-Right groin ecchymotic with a soft hematoma noted 16:04:26 Patient Warmer Placed on the Table. 16:04:32 Disposable Defibrillator Pads Placed On Patient. 16:04:33 Lashanda Prominences Protected 16:04:47 A # 20G IV was noted in the Forearm (right). Grade = 3 pt arrived w site reddened et swolle n. Site will not be used. 16:07:00 History and physical on the chart or being dictated. 16:14:33 Table restraints applied according to hospital policy 16:18:56 Anesthesia at bedside. HOLLY Aldridge Assumes care of patient. 16:28:42 Reference ECG taken 16:31:06 Bilateral groins prepped with 2% chlorhexidine, and draped after a 3 minute waiting time. 16:31:09 HR=72 bpm, TDKL=385/100 mmhg, SpO2=97.0 %, Resp=17 B/min Assessment: Initial Case Right Pulses: Omid Ped=1 16:31:28 Left Pulses: Omid Ped=1 Lower Right Extremities: Color=Normal Lower Left Extremities: Color=Normal 16:33:40 MD paged 16:35:11 MD responded 16:40:53 MD arrived. Time Out. Correct patient, procedure, procedure equipment, site and side verified with physicia n present. Time 16:44:33 concurred by MD, individual staff and ENVELOPE CUTTER. Time Out #2 - Consents verified, patient in correct position, all results are labled and displa yed, safety precautions 16:44:46 taken, antibiotics administered. Time out concurred by MD, individual staff and ENVELOPE CUTTER in procedu re 16:44:49 Case Start 16:44:55 20 mL 1% XYLOCAINE given in lab by Ramandeep Rea in Right Groin via Subcutaneous. Ordered b y Ramandeep Rea. 16:47:27 Vascular access was obtained in the Fem Vein (right). 16:47:42 A SHEATH, EPS, FR6 FAST CATH FR 6 was advanced into the Fem Vein (right) using the Percutan eous technique. 12/02/2017 5:27:16 PM Financial #: [id number] 7 of 9 Patient Name: ANNETTE ALMEIDA Study #: [id number] Initial MD: Ramandeep Rea Date of : 1935 Study Date: 12/02/2017 IV Solutions given in lab by Anesthesia, ENVELOPE CUTTER in Right Groin via 6FR Fast Cath sheath. Pump/Dri p Flow = 20 ml/hr 16:48:28 using NaCl .9. Ordered by Ramandeep Rea. 16:49:28 Vascular access was obtained in the Fem Vein (right). 16:49:31 Vascular access was obtained in the Fem Vein (right). 16:49:33 Vascular access was obtained in the Fem Vein (right). 16:50:19 A SHEATH, EPS, FR5 FAST CATH FR 5 was advanced into the Fem Vein (right) using the Percutan eous technique. 16:50:52 A SHEATH, EPS, FR5 FAST CATH FR 5 was advanced into the Fem Vein (right) using the Percutan eous technique. 16:51:02 A SHEATH, EPS, FR6 FAST CATH FR 6 was advanced into the Fem Vein (right) using the Percutan eous technique. 16:51:09 A SHEATH, EPS, FR6 FAST CATH FR 6 was advanced into the Fem Vein (right) using the Percutan eous technique. A CATHETER, JSN, QUAD FR 5 was advanced vis Fem Vein (right) and placed in the CS. Placement wa s visually 16:51:33 confirmed under fluoroscopy. Fr 6 A CATHETER, JSN, QUAD FR 5 was advanced vis Fem Vein (right) and placed in the HIS. Placement w as visually 16:52:02 confirmed under fluoroscopy. A CATHETER, JSN, QUAD FR 5 was advanced vis Fem Vein (right) and placed in the HRA. Placement w as visually 16:53:14 confirmed under fluoroscopy. A CATHETER, JSN, QUAD FR 5 was advanced vis Fem Vein (right) and placed in the RVA. Placement w as visually 16:53:26 confirmed under fluoroscopy. 16:54:36 EPS in progress 4 mcg/min ISUPREL given in lab by Anesthesia, ENVELOPE CUTTER via Peripheral IV. Pump/Drip Flow = 60 ml/hr using NaCl .9 with 17:08:06 a concentration of 1 mg in 250 ml. Ordered by Ramandeep Rea. Reason: As per physicians verbal o rder. 17:17:33 Isuprel off 17:18:08 Ablation procedure performed: ~ABLATION TYPE~. no ablation 17:18:20 EP Procedure was performed. 17:19:31 All catheter(s) removed without difficulty 17:21:29 Sheath(s) left in place, 0.9ns kvo connected, secured and will be removed in Holding Area b y Docu staff. 17:23:26 Sterile dressing applied to site 17:23:27 Case End 17:23:28 No case complications noted. 17:24:47 Cine recording checked. 17:24:51 Defibrillator and ground pads removed. Skin intact. Assessment: Final Case, HR=72 BPM, HNSE=643/68 mmhg, Chest Pain=0, Edema=Mild, Color=Normal, Sk in = Warm Right Pulses: Omid Ped=1 Left Pulses: Omid Ped=1 17:24:58 Lower Right Extremities: Color=Normal Lower Left Extremities: Color=Normal Neurological: State=Alert, Ox3, VARNER Respiration: Resp=16 B/min, SpO2=94 % 17:26:10 CICU called. Spoke to Neida 17:26:37 Bedside Report will be given. 17:35:47 Patient moved to [facility] 12/02/2017 5:27:16 PM Financial #: [id number] Patient Name: ANNETTE ALMEIDA Study #: [id number] Initial MD: Ramandeep Rea Date of : 1935 Study Date: 12/02/2017 End Study - Contrast Media Used In Study Contrast Total Opened (mL) Total Used (mL) Total Wasted (mL) Unspecified 0 0 0 End Study - Maximum Contrast Load Max Contrast Load (mL) 96.4 End Study - Radiation Exposure Fluoro Time (minutes) 0.7 End Study - Patient Disposition Complications Transferred To Interventional Outcome No Telemetry Bed successful 12/02/2017 5:27:16 PM Financial #: [id number]
[2017-12-02] MEDS ORDERED: LIDOCAINE HCL 1% 50 ML VIAL INFIL PRN (17:30)
[2017-12-02] MEDS ORDERED: SODIUM CHLOR 0.9% 250 ML INJ 250 ML IV PRN (17:30)
[2017-12-02] MEDS ORDERED: LORazepam 2 MG/ML VIAL IV PUSH PRN (17:30)
[2017-12-02] MEDS ORDERED: ONDANSETRON HCL 4 MG/2 ML VIAL IV PUSH PRN (17:30)
[2017-12-02] MEDS ORDERED: oxyCODONE/ACETAMINOPHEN 5 MG/325 MG TAB PO PRN ×2 (17:30)
[2017-12-02] MEDS ORDERED: BACITRACIN OINT 0.9 GM PKT TOP ONE (17:30)
[2017-12-02] MEDS ORDERED: ATROPINE SULFATE 1 MG/ML VIAL IV PUSH PRN (17:30)
--- NOTE | 2017-12-02 20:22 | MA ---
cc: Ramandepe Rea MD 12/02/2017 HISTORY OF PRESENT ILLNESS: Mr. Martin is a 82-year-old gentleman with wide complex tachyarrhythmia and syncope referred for electrophysiology study and possible revascularization. The risks, the nature, and the benefits of the procedure were clearly stated to him and his . Risks include pneumothorax, cardiac perforation, stroke, need for open heart surgery, and even . Patient understood and agreed to proceed. PROCEDURE: After written informed consent was obtained, the patient was brought to the EP lab where he was prepped and draped in usual sterile fashion. Conscious sedation was initiated and maintained throughout the procedure by anesthesiologist. Once sedation verified, the right inguinal area was anesthetized with 2% Xylocaine. Using modified Seldinger technique, the right femoral vein was cannulated on 4 occasions, 4 guidewires were advanced. Over the wire, two 6 and two 5 Lao Hemaquet wires were advanced. Then, under fluoroscopic guidance, through the 5 and 6 Lao Hemaquets, four 5 Lao Bryan curved quadripolar electrophysiology catheters were advanced and positioned along the His, upper right atrium, coronary sinus, and right ventricular apex Basic intervals were measured. They were within normal limits. At this point, atrial pacing protocol was performed. Atrial pacing protocol consisted of incremental atrial pacing as well as programmed stimulation with 1 [address] cycle length and up to 1 extra stimulus delivered. No tachyarrhythmia was induced. Next, ventricular pacing protocol was performed. There was VA conduction. It was concentric. Ventricular pacing protocol consisted of incremental ventricular pacing as well as programmed stimulation with 1 [address] train cycle length and up to 2 extra stimuli delivered. No tachyarrhythmia was induced. was initiated and ventricular pacing protocol was repeated again. No tachyarrhythmia was induced. At that point, procedure was complete. All catheters were removed. Patient is going to be transferred to recovery room. No incidents to report. Patient tolerated procedure. Blood loss minimal. IMPRESSION: 1. Electrocardiogram: At baseline, the patient was in sinus, post-procedure electrocardiogram was unchanged. 2. Basic cycle length was around 720 msec, AH was at 96, and HV was around 52 msec. 3. Atrial pacing protocol. Wenckebach of the nose was around 406 msec. ERP of the nose was 600-320 msec. No tachyarrhythmia was induced. 4. Ventricular pacing protocol. There was VA conduction, no tachyarrhythmia was induced. CONCLUSION: Negative electrophysiology study for ventricular tachyarrhythmia. RECOMMENDATIONS: Patient going to be transferred to recovery room. He will be observed. Once stable, can be discharged home. MD REMI Groves/SB , 05:54 PM , 08:21 PM
[2017-12-02] MEDS: TERAZOSIN HCL 1 MG CAP PO SCH (20:50)
[2017-12-02] MEDS: ATORVASTATIN 10 MG TAB PO SCH (20:51)
[2017-12-03] VITALS (25 sets, daily range): BP systolic 114–160; BP diastolic 67–94; PULSE 52–82; RESP 18–20; TEMP 97.2–98.6; O2SAT 96–98
[2017-12-03 06:58] LABS: BICARBONATE 28.7 MEQ/L (21.0-32.0); CALCIUM 7.9 MG/DL (8.5-10.1); CREATININE 3.55 MG/DL (0.60-1.30)
--- NOTE | 2017-12-03 08:09 | HHI.PR ---
Subjective Remarks pt denies any new complaints. Objective Vitals on edge bed no labored breathing heart reg lung cta abd s/nt ext 1plus edema vascath. Vital Signs Date Time Temp Pulse Resp B/P (MAP) Pulse Ox O2 Delivery O2 Flow Rate FiO2 12/03/17 06:20 70 12/03/17 05:27 74 12/03/17 04:13 70 12/03/17 03:00 98.1 64 20 150/82 (104) 97 12/03/17 03:00 74 12/03/17 02:09 60 12/03/17 01:00 56 12/03/17 00:29 52 12/02/17 23:00 74 12/02/17 23:00 97.1 52 20 156/77 (103) 97 12/02/17 23:00 70 12/02/17 21:09 68 12/02/17 20:00 98 Nasal Cannula 2.00 12/02/17 20:00 97.5 76 20 144/78 (100) 98 12/02/17 20:00 70 12/02/17 18:00 68 12/02/17 16:00 68 12/02/17 15:00 71 12/02/17 14:00 62 12/02/17 13:00 58 12/02/17 12:00 64 12/02/17 11:00 97.9 65 18 156/84 (108) 96 12/02/17 11:00 86 12/02/17 10:00 64 12/02/17 09:00 68 Result Diagram: 12/01/17 0740 12/03/17 0448 Imaging Last Impressions Myocardial Perfusion Scan Nuc Med 11/27/17 0000 Signed Impressions: Service Date/Time: Monday, November 27, 2017 14:29 - CONCLUSION: Mild global hypokinesis. No reversible ischemic segments are identified. RISK CATEGORY: Intermediate (1-3%% Annual Mortality Rate) Tay Morelos MD Chest X-Ray 11/27/17 0000 Signed Impressions: Service Date/Time: Monday, November 27, 2017 10:50 - CONCLUSION: Mild congestive failure probable trace fluid on the left Austin Chu MD FACR Upper Extremity Ultrasound 11/23/17 0000 Signed Impressions: Service Date/Time: Thursday, November 23, 2017 20:28 - CONCLUSION: No DVT is identified within either upper extremity. Froylan Sahu MD Renal Ultrasound 11/23/17 0000 Signed Impressions: Service Date/Time: Saturday, November 23, 2017 14:32 - CONCLUSION: 1. No evidence of hydronephrosis. 2. Chronic medical renal disease. 3. Multiple Bilateral benign-appearing renal cysts. 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 acute/chronic kidney dz stage 4 hx temp dialysis after bowel perforation 2. volume overload 3. acute on chronic anemia 4. afib on anticoagulation 5. htn 6. hx prostate ca/radiation 7. hx sbo/ischemic bowel perforation/resection - Echocardiogram (11/24) --> EF 50-55% - baseline CKD stage 4 now with decline in Renal function has the etiology is not completely clear - Lexiscan showed no reversible ischemia but patient has been having runs of NSVT, - LHC (11/29) with Dr. Tay Robles. No critical stenosis requiring intervention - EP study for NSVT with Dr. Rea 12/02 negative.- - Vascath placed (11/28/17) - Pt underwent HD 11/29, 11/30 - Lasix 80mg IV daily convert to po today -cr trending up again today. -await further nephrology reccs for disposition. - Case d/w Dr. Shaw (11/30/17) - planned AV Fistula creation on hold - DVT prophylaxis (2) Afib ICD Codes: I48.91 - Afib Status: Chronic Plan: - telemetry (11/26) showed NSVT and periods of bradycardia with causes. Currently telemetry - decrease coreg 12.5mg BID - Echocardiogram (11/24) --> EF 55-60%, moderate TR - Case d/w Dr. Tay Robles (11/26) and (11/28) - Lexiscan (11/27) --> mild hypokinesis - S/P cardiac cath (11/29) with Dr. Robles with no intervention indicated - plan for EP study with Dr. Rea on Saturday - Per nephrology Eliquis on hold for possible fistula placement Saturday - see above (3) Anemia ICD Codes: D64.9 - Anemia, unspecified Status: Acute Plan: - s/p 2 units blood. (4) HTN (hypertension) ICD Codes: I10 - HTN (hypertension) Status: Chronic (5) History of prostate cancer ICD Codes: Z85.46 - History of prostate cancer Status: Chronic Problem Qualifiers (1) Afib: Qualified Codes: I48.2 - Chronic atrial fibrillation (2) Anemia: Qualified Codes: N18.4 - Chronic kidney disease, stage 4 (severe); D63.1 - Anemia in chronic kidney disease Chauncey Ashton MD Dec 03, 2017 08:09
--- NOTE | 2017-12-03 08:17 | HHI.NPPN ---
Subjective Renal Failure: Chronic, Acute, Stage IV Interval History Non oliguric. Creatinine is slightly worse. EP study was negative. Swelling of the lower extremities is asymmetrical: more on the left side. Patient denies shortness of breath. Review of Systems General Constitutional: Fatigue Respiratory Lungs: SOB Cardiovascular Cardiac: Edema Objective Data Data Vital Signs Date Time Temp Pulse Resp B/P (MAP) Pulse Ox O2 Delivery O2 Flow Rate FiO2 12/03/17 06:20 70 12/03/17 05:27 74 12/03/17 04:13 70 12/03/17 03:00 98.1 64 20 150/82 (104) 97 12/03/17 03:00 74 12/03/17 02:09 60 12/03/17 01:00 56 12/03/17 00:29 52 12/02/17 23:00 74 12/02/17 23:00 97.1 52 20 156/77 (103) 97 12/02/17 23:00 70 12/02/17 21:09 68 12/02/17 20:00 98 Nasal Cannula 2.00 12/02/17 20:00 97.5 76 20 144/78 (100) 98 12/02/17 20:00 70 12/02/17 18:00 68 12/02/17 16:00 68 12/02/17 15:00 71 12/02/17 14:00 62 12/02/17 13:00 58 12/02/17 12:00 64 12/02/17 11:00 97.9 65 18 156/84 (108) 96 12/02/17 11:00 86 12/02/17 10:00 64 12/02/17 09:00 68 -: 12/01/17 0740 12/03/17 0448 Tubes & Lines: Vas-Cath Physical Exam General Appearance: Well Developed, Well Nourished, No Acute Distress, Comfortable Ears & Nose Ears & Nose Exam: Tympanic Membranes Normal Throat Throat Exam: Oral Mucosa [place] & Moist Neck Neck Exam: Neck Supple Pulmonary Resp Exam: Clear Bilaterally, Decreased Bases Cardiology CV Exam: Regular, Normal Sinus Rhythm Gastrointestinal/Abdomen GI Exam: Soft, Non-Tender, Positive Bowel Movement Musculoskeletal MS Exam: Joints Intact, Normal Tone Integumentary Skin Exam: Clear, Warm, Dry, Intact Extremeties Extremities Exam: Pedal Pulses Palpable, Trace Edema, Dependent Edema Neurologic Neuro Exam: Alert, Awake, Oriented, Speech Clear, Moving All Extremities Psychiatric Psych Exam: Appropriate Responses Assessment/Plan Discussed Condition With: Patient, Spouse Assessment Summary: RENETTA/Acute Renal Failure, Anemia of CKD, Fluid/Volume Overload, Hypertension Problem List: (1) Acute worsening of stage 4 chronic kidney disease ICD Codes: N28.9 - Disorder of kidney and ureter, unspecified; N18.4 - Chronic kidney disease, stage 4 (severe) Status: Acute Plan: History of CKD 4, he was on dialysis in the past for a few months. Baseline GFR 20 to 25. Renal function has declined in the past month, the etiology is not completely clear s/p VasCath placement 11/28 s/p cardiac cath on 11/29. Dialysis initiated on 11/29. Dialyzed again on 11/30. Monitor fluid and electrolytes. It is still unclear if he has reached ESRD and will need outpatient dialysis after discharge. Change Lasix to PO. Avoid nephrotoxins. Repeat labs tomorrow. No plans for dialysis today. (2) Anemia ICD Codes: D64.9 - Anemia, unspecified Status: Acute Plan: On Venover Started Epogen Blood transfusion. (3) HTN (hypertension) ICD Codes: I10 - HTN (hypertension) Status: Chronic Plan: Hydralazine continued Procardia XL 60mg PO BID Lisinopril held in light of possible RENETTA on CKD. Coreg continues Continue Lasix. May need to reduce the dose of Procardia as it can also cause edema (but not weight gain). (4) Afib ICD Codes: I48.91 - Afib Status: Chronic Plan: patient also had recurrent runs of Ventricular tachycardia. Had Cardiac cath. No intervention was needed. To have EP study today. No recurrence. (5) History of prostate cancer ICD Codes: Z85.46 - History of prostate cancer Status: Chronic Plan: No signs of any obstruction on renal ultrasound. Continue to monitor without any Ocasio. Problem Qualifiers (1) Anemia: Qualified Codes: N18.4 - Chronic kidney disease, stage 4 (severe); D63.1 - Anemia in chronic kidney disease (2) Afib: Qualified Codes: I48.2 - Chronic atrial fibrillation Tai Brito MD Dec 03, 2017 08:17
[2017-12-03] MEDS: SODIUM CHLORIDE 0.9% FLUSH 10 ML FLUSH IV FLUSH SCH ×2 (09:00→21:10)
[2017-12-03] MEDS: NIFEdipine 60 MG SUSTAINED RELEASE TAB PO SCH ×2 (10:06→21:10)
[2017-12-03] MEDS: ASPIRIN 81 MG CHEW TAB CHEW SCH (10:07)
[2017-12-03] MEDS: FUROSEMIDE 80 MG TAB PO SCH (10:07)
[2017-12-03] MEDS: CARVEDILOL 12.5 MG TAB PO SCH ×2 (10:07→21:10)
[2017-12-03] MEDS: ALLOPURINOL 100 MG TAB PO SCH (10:07)
[2017-12-03] MEDS: CHOLECALCIFEROL (VIT D3) 1000 UNIT TAB PO SCH (10:07)
[2017-12-03] MEDS: hydrALAZINE HCL 50 MG TAB PO SCH ×3 (10:07→18:19)
--- NOTE | 2017-12-03 18:58 | EKG ---
Date Performed: 12/02/2017 Time Performed: 21:35:46 PTAGE: 82 years EKG: Sinus rhythm with PAC(s) Possible anteroseptal infarct - age undetermined Inferior/lateral T wave changes are non specific Abnormal ECG Since the prior tracing, there has been no significant change PREVIOUS TRACING : 11/23/2017 12.27 DOCTOR: Timmy Haro Interpretating Date/Time 12/03/2017 18:55:58
[2017-12-03] MEDS: TERAZOSIN HCL 1 MG CAP PO SCH (21:10)
[2017-12-03] MEDS: ATORVASTATIN 10 MG TAB PO SCH (21:10)
[2017-12-04] VITALS (27 sets, daily range): BP systolic 135–161; BP diastolic 68–86; PULSE 20–78; RESP 17–18; TEMP 98–98.5; O2SAT 95–97
[2017-12-04 07:04] LABS: BICARBONATE 26.4 MEQ/L (21.0-32.0); CALCIUM 8.1 MG/DL (8.5-10.1); CREATININE 3.92 MG/DL (0.60-1.30)
--- NOTE | 2017-12-04 07:12 | PD.VS.PN ---
Subjective Subjective/Hospital Course Pt with near ESRD, likely imminent. All cardiac work-up negative. Plans for L UE AVF, likely radiocephalic. Objective Vitals/I&O Date Time Temp Pulse Resp B/P (MAP) Pulse Ox O2 Delivery O2 Flow Rate FiO2 12/04/17 06:01 70 12/04/17 05:00 67 12/04/17 04:00 51 12/04/17 03:00 73 12/04/17 03:00 98.3 72 18 139/73 (95) 97 12/04/17 02:00 64 12/04/17 01:00 68 12/04/17 00:00 67 12/03/17 23:00 97.2 69 18 114/80 (91) 97 12/03/17 23:00 74 12/03/17 22:00 68 12/03/17 21:00 68 12/03/17 20:00 72 12/03/17 19:00 97.8 74 18 160/78 (105) 96 12/03/17 19:00 97 Room Air 12/03/17 19:00 67 12/03/17 18:00 72 12/03/17 17:00 70 12/03/17 16:00 66 12/03/17 15:00 78 12/03/17 15:00 98.6 82 18 122/67 (85) 96 12/03/17 14:00 78 12/03/17 13:00 78 12/03/17 12:00 78 12/03/17 11:15 97.7 81 18 141/80 (100) 98 12/03/17 11:00 60 12/03/17 10:00 78 12/03/17 09:00 78 12/03/17 08:00 78 12/04/17 12/04/17 12/04/17 07:00 15:00 23:00 Intake Total 240 ml Output Total 600 ml Balance -360 ml Physical Exam L UE without rashes. + pulse. Laboratory Laboratory Tests Test 12/04/17 04:58 Blood Urea Nitrogen 50 Creatinine 3.92 Random Glucose 87 Calcium Level 8.1 Sodium Level 142 Potassium Level 4.0 Chloride Level 107 Carbon Dioxide Level 26.4 Anion Gap 9 Estimat Glomerular Filtration Rate 15 Assessment and Plan Plan near ESRD and need for HD access 1. I have him on the schedule for tomorrow for L UE AVF. Discussed again with the patient and his . They would like to discuss with primary service and nephrology. I offered tomorrow vs outpatient AVF creation and they will let me know. 2. If tomorrow, will make NPO after MN. Jesus Shaw MD FACS [employer] refining machine operator [facility] at [facility] [phone] Jesus Shaw MD Dec 04, 2017 07:12
--- NOTE | 2017-12-04 07:51 | HHI.NPPN ---
Subjective Renal Failure: Chronic, Acute, Stage IV Interval History Non oliguric. BUN/creatinine slightly worse. Notes were reviewed. Review of Systems General Constitutional: Fatigue Respiratory Lungs: SOB Cardiovascular Cardiac: Edema Objective Data Data Vital Signs Date Time Temp Pulse Resp B/P (MAP) Pulse Ox O2 Delivery O2 Flow Rate FiO2 12/04/17 06:01 70 12/04/17 05:00 67 12/04/17 04:00 51 12/04/17 03:00 73 12/04/17 03:00 98.3 72 18 139/73 (95) 97 12/04/17 02:00 64 12/04/17 01:00 68 12/04/17 00:00 67 12/03/17 23:00 97.2 69 18 114/80 (91) 97 12/03/17 23:00 74 12/03/17 22:00 68 12/03/17 21:00 68 12/03/17 20:00 72 12/03/17 19:00 97.8 74 18 160/78 (105) 96 12/03/17 19:00 97 Room Air 12/03/17 19:00 67 12/03/17 18:00 72 12/03/17 17:00 70 12/03/17 16:00 66 12/03/17 15:00 78 12/03/17 15:00 98.6 82 18 122/67 (85) 96 12/03/17 14:00 78 12/03/17 13:00 78 12/03/17 12:00 78 12/03/17 11:15 97.7 81 18 141/80 (100) 98 12/03/17 11:00 60 12/03/17 10:00 78 12/03/17 09:00 78 12/03/17 08:00 78 -: 12/01/17 0740 12/04/17 0458 Tubes & Lines: Vas-Cath Physical Exam General Appearance: Well Developed, Well Nourished, No Acute Distress, Comfortable Ears & Nose Ears & Nose Exam: Tympanic Membranes Normal Throat Throat Exam: Oral Mucosa [place] & Moist Neck Neck Exam: Neck Supple Pulmonary Resp Exam: Clear Bilaterally, Decreased Bases Cardiology CV Exam: Regular, Normal Sinus Rhythm Gastrointestinal/Abdomen GI Exam: Soft, Non-Tender, Positive Bowel Movement Musculoskeletal MS Exam: Joints Intact, Normal Tone Integumentary Skin Exam: Clear, Warm, Dry, Intact Extremeties Extremities Exam: Pedal Pulses Palpable, Trace Edema, Dependent Edema Neurologic Neuro Exam: Alert, Awake, Oriented, Speech Clear, Moving All Extremities Psychiatric Psych Exam: Appropriate Responses Assessment/Plan Discussed Condition With: Patient, Spouse Assessment Summary: RENETTA/Acute Renal Failure, Anemia of CKD, Fluid/Volume Overload, Hypertension Problem List: (1) Acute worsening of stage 4 chronic kidney disease ICD Codes: N28.9 - Disorder of kidney and ureter, unspecified; N18.4 - Chronic kidney disease, stage 4 (severe) Status: Acute Plan: History of CKD 4, he was on dialysis in the past for a few months. Baseline GFR 20 to 25. Renal function has declined in the past month, the etiology is not completely clear s/p VasCath placement 11/28 s/p cardiac cath on 11/29. Dialysis initiated on 11/29. Dialyzed again on 11/30. Monitor fluid and electrolytes. It is still unclear if he has reached ESRD and will need outpatient dialysis after discharge. Changed Lasix to PO. Avoid nephrotoxins. Repeat labs again tomorrow. No plans for dialysis today. Patient preferably should have AVF placed before discharge: even if he is not on dialysis at the time of discharge. (2) Anemia ICD Codes: D64.9 - Anemia, unspecified Status: Acute Plan: On Venover Started Epogen Blood transfusion. (3) HTN (hypertension) ICD Codes: I10 - HTN (hypertension) Status: Chronic Plan: Hydralazine continued Procardia XL 60mg PO BID Lisinopril held in light of possible RENETTA on CKD. Coreg continues Continue Lasix. May need to reduce the dose of Procardia as it can also cause edema (but not weight gain). (4) Afib ICD Codes: I48.91 - Afib Status: Chronic Plan: patient also had recurrent runs of Ventricular tachycardia. Had Cardiac cath. No intervention was needed. EP study was negative. (5) History of prostate cancer ICD Codes: Z85.46 - History of prostate cancer Status: Chronic Plan: Not an active issue. Problem Qualifiers (1) Anemia: Qualified Codes: N18.4 - Chronic kidney disease, stage 4 (severe); D63.1 - Anemia in chronic kidney disease (2) Afib: Qualified Codes: I48.2 - Chronic atrial fibrillation Tai Brito MD Dec 04, 2017 07:51
[2017-12-04] MEDS: CHOLECALCIFEROL (VIT D3) 1000 UNIT TAB PO SCH (09:34)
[2017-12-04] MEDS: ALLOPURINOL 100 MG TAB PO SCH (09:35)
[2017-12-04] MEDS: NIFEdipine 60 MG SUSTAINED RELEASE TAB PO SCH ×2 (09:35→20:57)
[2017-12-04] MEDS: FUROSEMIDE 80 MG TAB PO SCH (09:35)
[2017-12-04] MEDS: hydrALAZINE HCL 50 MG TAB PO SCH ×3 (09:35→18:16)
[2017-12-04] MEDS: CARVEDILOL 12.5 MG TAB PO SCH ×2 (09:35→20:58)
[2017-12-04] MEDS: SODIUM CHLORIDE 0.9% FLUSH 10 ML FLUSH IV FLUSH SCH ×2 (09:36→20:58)
--- NOTE | 2017-12-04 09:44 | HHI.PR ---
Subjective Remarks no complaints Objective Vitals heart reg lung cta abd s/nt ext pitting edema vascath. Vital Signs Date Time Temp Pulse Resp B/P (MAP) Pulse Ox O2 Delivery O2 Flow Rate FiO2 12/04/17 09:33 98.0 73 17 161/80 (107) 95 12/04/17 06:01 70 12/04/17 05:00 67 12/04/17 04:00 51 12/04/17 03:00 73 12/04/17 03:00 98.3 72 18 139/73 (95) 97 12/04/17 02:00 64 12/04/17 01:00 68 12/04/17 00:00 67 12/03/17 23:00 97.2 69 18 114/80 (91) 97 12/03/17 23:00 74 12/03/17 22:00 68 12/03/17 21:00 68 12/03/17 20:00 72 12/03/17 19:00 97.8 74 18 160/78 (105) 96 12/03/17 19:00 97 Room Air 12/03/17 19:00 67 12/03/17 18:00 72 12/03/17 17:00 70 12/03/17 16:00 66 12/03/17 15:00 78 12/03/17 15:00 98.6 82 18 122/67 (85) 96 12/03/17 14:00 78 12/03/17 13:00 78 12/03/17 12:00 78 12/03/17 11:15 97.7 81 18 141/80 (100) 98 12/03/17 11:00 60 12/03/17 10:00 78 Result Diagram: 12/01/17 0740 12/04/17 0458 Imaging Last Impressions Myocardial Perfusion Scan Nuc Med 11/27/17 0000 Signed Impressions: Service Date/Time: Monday, November 27, 2017 14:29 - CONCLUSION: Mild global hypokinesis. No reversible ischemic segments are identified. RISK CATEGORY: Intermediate (1-3%% Annual Mortality Rate) Tay Morelos MD Chest X-Ray 11/27/17 0000 Signed Impressions: Service Date/Time: Monday, November 27, 2017 10:50 - CONCLUSION: Mild congestive failure probable trace fluid on the left Austin Chu MD FACR Upper Extremity Ultrasound 11/23/17 0000 Signed Impressions: Service Date/Time: Thursday, November 23, 2017 20:28 - CONCLUSION: No DVT is identified within either upper extremity. Froylan Sahu MD Renal Ultrasound 11/23/17 0000 Signed Impressions: Service Date/Time: Thursday, November 23, 2017 14:32 - CONCLUSION: 1. No evidence of hydronephrosis. 2. Chronic medical renal disease. 3. Multiple Bilateral benign-appearing renal cysts. 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 acute/chronic kidney dz stage 4 hx temp dialysis after bowel perforation 2. volume overload 3. acute on chronic anemia 4. afib on anticoagulation 5. htn 6. hx prostate ca/radiation 7. hx sbo/ischemic bowel perforation/resection - Echocardiogram (11/24) --> EF 50-55% - baseline CKD stage 4 now with decline in Renal function has the etiology is not completely clear - Lexiscan showed no reversible ischemia but patient has been having runs of NSVT, - LHC (11/29) with Dr. Tay Robles. No critical stenosis requiring intervention - EP study for NSVT with Dr. Rea 12/02 negative.- - Vascath placed (11/28/17) - Pt underwent HD 11/29, 11/30 - Lasix 80mg IV daily convert to po 12/03 -cr trending up again today. -discussed with Dr Brito...he agrees with AVF planned for tomorrow per Dr Shaw...possible permcath prior to dc but will monitor. eliquis on hold - DVT prophylaxis (2) Afib ICD Codes: I48.91 - Afib Status: Chronic Plan: - telemetry (11/26) showed NSVT and periods of bradycardia with causes. Currently telemetry - decrease coreg 12.5mg BID - Echocardiogram (11/24) --> EF 55-60%, moderate TR - Case d/w Dr. Tay Robles (11/26) and (11/28) - Lexiscan (11/27) --> mild hypokinesis - S/P cardiac cath (11/29) with Dr. Robles with no intervention indicated - plan for EP study with Dr. Rea on Saturday - Per nephrology Eliquis on hold for possible fistula placement Saturday - see above (3) Anemia ICD Codes: D64.9 - Anemia, unspecified Status: Acute Plan: - s/p 2 units blood. (4) HTN (hypertension) ICD Codes: I10 - HTN (hypertension) Status: Chronic (5) History of prostate cancer ICD Codes: Z85.46 - History of prostate cancer Status: Chronic Problem Qualifiers (1) Afib: Qualified Codes: I48.2 - Chronic atrial fibrillation (2) Anemia: Qualified Codes: N18.4 - Chronic kidney disease, stage 4 (severe); D63.1 - Anemia in chronic kidney disease Chauncey Ashton MD Dec 04, 2017 09:44
[2017-12-04] MEDS: ASPIRIN 81 MG CHEW TAB CHEW SCH (13:47)
--- NOTE | 2017-12-04 18:01 | PD.VS.PN ---
Subjective Subjective/Hospital Course 82/M near ESRD, likely imminent. Planning for L UE AVF for tomorrow am w/ dr. Shaw Pt w/o complaints Objective Vitals/I&O Date Time Temp Pulse Resp B/P (MAP) Pulse Ox O2 Delivery O2 Flow Rate FiO2 12/04/17 15:38 98.5 78 18 149/86 (107) 97 12/04/17 15:00 65 12/04/17 14:00 68 12/04/17 13:00 76 12/04/17 12:00 72 12/04/17 11:58 98.2 64 17 152/72 (98) 95 12/04/17 11:00 63 12/04/17 10:00 72 12/04/17 09:33 98.0 73 17 161/80 (107) 95 12/04/17 09:00 68 12/04/17 08:00 64 12/04/17 08:00 Room Air 12/04/17 07:00 67 12/04/17 06:01 70 12/04/17 05:00 67 12/04/17 04:00 51 12/04/17 03:00 73 12/04/17 03:00 98.3 72 18 139/73 (95) 97 12/04/17 02:00 64 12/04/17 01:00 68 12/04/17 00:00 67 12/03/17 23:00 97.2 69 18 114/80 (91) 97 12/03/17 23:00 74 12/03/17 22:00 68 12/03/17 21:00 68 12/03/17 20:00 72 12/03/17 19:00 97.8 74 18 160/78 (105) 96 12/03/17 19:00 97 Room Air 12/03/17 19:00 67 12/03/17 18:00 72 12/04/17 12/04/17 12/04/17 07:00 15:00 23:00 Intake Total 240 ml Output Total 600 ml Balance -360 ml Physical Exam GENERAL: A&OX3,NAD,GCS15 SKIN: UE Warm and dry w/ motor intact + R/L radial pulse palpable Laboratory Laboratory Tests Test 12/04/17 04:58 Blood Urea Nitrogen 50 Creatinine 3.92 Random Glucose 87 Calcium Level 8.1 Sodium Level 142 Potassium Level 4.0 Chloride Level 107 Carbon Dioxide Level 26.4 Anion Gap 9 Estimat Glomerular Filtration Rate 15 Assessment and Plan Plan Pt near ESRD and need for HD access Plan Discussed and reviewed AVF creation w/ pt and spouse All questions answered Pt scheduled for L UE AVF creation tomorrow am w/ / Colin Consent obtained and placed in the chart Pt NPO after midnight Kari Mckoy NP [facility] [phone] Kari Mckoy Dec 04, 2017 18:01
[2017-12-04] MEDS: ATORVASTATIN 10 MG TAB PO SCH (20:57)
[2017-12-04] MEDS: TERAZOSIN HCL 1 MG CAP PO SCH (20:58)
[2017-12-05] VITALS (23 sets, daily range): BP systolic 130–155; BP diastolic 71–91; PULSE 54–82; RESP 15–20; TEMP 98–98.6; O2SAT 97
[2017-12-05 07:07] LABS: ALBUMIN 2.6 GM/DL (3.4-5.0); CALCIUM 8.1 MG/DL (8.5-10.1); CREATININE 3.84 MG/DL (0.60-1.30); PHOSPHORUS 3.1 MG/DL (2.5-4.9)
[2017-12-05] MEDS ORDERED: HEPARIN SODIUM - IV 10,000 UNITS/10 ML VIAL ONE (07:34)
[2017-12-05] MEDS ORDERED: BUPIVACAINE HCL PF 0.5% 10 ML VIAL ONE (07:34)
[2017-12-05] MEDS ORDERED: VANCOMYCIN HCL 1000 MG VIAL ONE (07:34)
--- NOTE | 2017-12-05 07:34 | HHI.NPPN ---
Subjective Renal Failure: Chronic, Acute, Stage IV Interval History Creatinine has improved. Good urine output. AVF placement is planned. Review of Systems General Constitutional: Fatigue Respiratory Lungs: SOB Cardiovascular Cardiac: Edema Objective Data Data Vital Signs Date Time Temp Pulse Resp B/P (MAP) Pulse Ox O2 Delivery O2 Flow Rate FiO2 12/05/17 07:29 97 Room Air 12/05/17 07:29 98.2 70 19 146/78 (100) 97 12/05/17 06:00 66 12/05/17 05:00 64 12/05/17 04:00 72 12/05/17 04:00 Room Air 12/05/17 04:00 98.4 78 18 155/91 (112) 97 12/05/17 03:00 62 12/05/17 02:00 66 12/05/17 01:00 68 12/05/17 00:00 98.6 70 18 144/78 (100) 97 12/05/17 00:00 Room Air 12/05/17 00:00 71 12/04/17 23:00 62 12/04/17 22:00 66 12/04/17 21:00 72 12/04/17 20:00 Room Air 12/04/17 20:00 74 12/04/17 20:00 98.1 68 18 135/68 (90) 97 12/04/17 20:00 Room Air 12/04/17 19:00 72 12/04/17 18:00 76 12/04/17 17:00 68 12/04/17 16:00 70 12/04/17 15:38 98.5 78 18 149/86 (107) 97 12/04/17 15:00 65 12/04/17 14:00 68 12/04/17 13:00 76 12/04/17 12:00 72 12/04/17 11:58 98.2 64 17 152/72 (98) 95 12/04/17 11:00 63 12/04/17 10:00 72 12/04/17 09:33 98.0 73 17 161/80 (107) 95 12/04/17 09:00 68 12/04/17 08:00 64 12/04/17 08:00 Room Air -: 12/01/17 0740 12/05/17 0514 Tubes & Lines: Vas-Cath Physical Exam General Appearance: Well Developed, Well Nourished, No Acute Distress, Comfortable Ears & Nose Ears & Nose Exam: Tympanic Membranes Normal Throat Throat Exam: Oral Mucosa [place] & Moist Neck Neck Exam: Neck Supple Pulmonary Resp Exam: Clear Bilaterally, Decreased Bases Cardiology CV Exam: Regular, Normal Sinus Rhythm Gastrointestinal/Abdomen GI Exam: Soft, Non-Tender, Positive Bowel Movement Musculoskeletal MS Exam: Joints Intact, Normal Tone Integumentary Skin Exam: Clear, Warm, Dry, Intact Extremeties Extremities Exam: Pedal Pulses Palpable, Trace Edema, Dependent Edema Neurologic Neuro Exam: Alert, Awake, Oriented, Speech Clear, Moving All Extremities Psychiatric Psych Exam: Appropriate Responses Assessment/Plan Discussed Condition With: Patient, Spouse Assessment Summary: RENETTA/Acute Renal Failure, Anemia of CKD, Fluid/Volume Overload, Hypertension Problem List: (1) Acute worsening of stage 4 chronic kidney disease ICD Codes: N28.9 - Disorder of kidney and ureter, unspecified; N18.4 - Chronic kidney disease, stage 4 (severe) Status: Acute Plan: History of CKD 4, he was on dialysis in the past for a few months. Baseline GFR 20 to 25. Renal function has declined in the past month, the etiology is not completely clear s/p VasCath placement 11/28 s/p cardiac cath on 11/29. Dialysis initiated on 11/29. Dialyzed again on 11/30. Creatinine is slightly better. No plans for dialysis. To go ahead with AVF placement. Possible discharge tomorrow. Avoid nephrotoxic agents. (2) Anemia ICD Codes: D64.9 - Anemia, unspecified Status: Acute Plan: On Venover Started Epogen Blood transfusion. (3) HTN (hypertension) ICD Codes: I10 - HTN (hypertension) Status: Chronic Plan: Hydralazine continued Procardia XL 60mg PO BID Lisinopril held in light of possible RENETTA on CKD. Coreg continues Continue Lasix. May need to reduce the dose of Procardia as it can also cause edema (but not weight gain). (4) Afib ICD Codes: I48.91 - Afib Status: Chronic Plan: patient also had recurrent runs of Ventricular tachycardia. Had Cardiac cath. No intervention was needed. EP study was negative. (5) History of prostate cancer ICD Codes: Z85.46 - History of prostate cancer Status: Chronic Plan: Not an active issue. Problem Qualifiers (1) Anemia: Qualified Codes: N18.4 - Chronic kidney disease, stage 4 (severe); D63.1 - Anemia in chronic kidney disease (2) Afib: Qualified Codes: I48.2 - Chronic atrial fibrillation Tai Brito MD Dec 05, 2017 07:34
[2017-12-05] MEDS ORDERED: THROMBIN (TOPICAL) 20,000 UNIT SPRAY KIT ONE (07:35)
[2017-12-05] MEDS ORDERED: PROTAMINE SULFATE 50 MG/5 ML VIAL ONE (07:35)
[2017-12-05] MEDS ORDERED: HEPARIN-NS/PF INJ 500 ML ONE (07:35)
[2017-12-05] MEDS ORDERED: POVIDONE IODINE 5% (ANTISEPSIS KIT) 4 APPLICATIONS EACH NARE PRN (08:00)
[2017-12-05] MEDS ORDERED: METOPROLOL TARTRATE 25 MG TAB PO PRN (08:00)
[2017-12-05] MEDS ORDERED: INSULIN HUMAN REGULAR 1,000 UNITS/10 ML VIAL SQ PRN (08:00)
[2017-12-05] MEDS ORDERED: SODIUM CHLORID 0.9% 500 ML IV PRN (08:00)
[2017-12-05] MEDS ORDERED: LACTATED RINGER'S 1000 ML IV PRN (08:00)
[2017-12-05] MEDS ORDERED: CHLORHEXIDINE GLUCONATE 2 % 1 PACK (2 CLOTHS) TOPICAL PRN (08:00)
[2017-12-05] MEDS ORDERED: ACETAMINOPHEN 1000 MG/100 ML 100 ML IV ONE (08:17)
[2017-12-05] MEDS ORDERED: FAMOTIDINE 20 MG/2 ML VIAL ONE (08:17)
[2017-12-05] MEDS ORDERED: ceFAZolin 2 GM PREMIX 50 ML ONE (08:28)
[2017-12-05] MEDS: CARVEDILOL 12.5 MG TAB PO SCH ×2 (09:00→20:56)
[2017-12-05] MEDS: hydrALAZINE HCL 50 MG TAB PO SCH ×3 (09:00→18:08)
--- NOTE | 2017-12-05 09:33 | HHI.PR ---
cc: Jesus Shaw MD Immediate Post Op Note Procedure Date: Dec 05, 2017 Pre Op Diagnosis: near ESRD, need for HD access Post Op Diagnosis: near ESRD, need for HD access Surgeon: Jesus Shaw Sales Superintendent(s): Jesus Raya Procedure: L radiocephalic AVF Findings: 3mm vein, did not dilate but had + thrill Complications: none Specimen(s) removed: none Estimated blood loss: 50mL Anesthesia: LMA Drains: None Fluids: 250mL Patient to: PACU Patient Condition: Good Date/Time of Procedure: SEE SURGICAL CARE RECORD Jesus Shaw MD Dec 05, 2017 09:33
--- NOTE | 2017-12-05 09:42 | HHI.PR ---
Subjective Remarks going for surgery. Objective Vitals heart reg lung cta abd s/nt ext 1plus pitting Vital Signs Date Time Temp Pulse Resp B/P (MAP) Pulse Ox O2 Delivery O2 Flow Rate FiO2 12/05/17 07:29 97 Room Air 12/05/17 07:29 98.2 70 19 146/78 (100) 97 12/05/17 06:00 66 12/05/17 05:00 64 12/05/17 04:00 72 12/05/17 04:00 Room Air 12/05/17 04:00 98.4 78 18 155/91 (112) 97 12/05/17 03:00 62 12/05/17 02:00 66 12/05/17 01:00 68 12/05/17 00:00 98.6 70 18 144/78 (100) 97 12/05/17 00:00 Room Air 12/05/17 00:00 71 12/04/17 23:00 62 12/04/17 22:00 66 12/04/17 21:00 72 12/04/17 20:00 Room Air 12/04/17 20:00 74 12/04/17 20:00 98.1 68 18 135/68 (90) 97 12/04/17 20:00 Room Air 12/04/17 19:00 72 12/04/17 18:00 76 12/04/17 17:00 68 12/04/17 16:00 70 12/04/17 15:38 98.5 78 18 149/86 (107) 97 12/04/17 15:00 65 12/04/17 14:00 68 12/04/17 13:00 76 12/04/17 12:00 72 12/04/17 11:58 98.2 64 17 152/72 (98) 95 12/04/17 11:00 63 12/04/17 10:00 72 12/05/17 12/05/17 12/06/17 15:00 23:00 07:00 Intake Total 250 ml Output Total 50 ml Balance 200 ml Other 250 ml Estimated Blood Loss 50 ml Result Diagram: 12/01/17 0740 12/05/17 0514 Imaging Last Impressions Myocardial Perfusion Scan Nuc Med 11/27/17 0000 Signed Impressions: Service Date/Time: Monday, November 27, 2017 14:29 - CONCLUSION: Mild global hypokinesis. No reversible ischemic segments are identified. RISK CATEGORY: Intermediate (1-3%% Annual Mortality Rate) Tay Morelos MD Chest X-Ray 11/27/17 0000 Signed Impressions: Service Date/Time: Monday, November 27, 2017 10:50 - CONCLUSION: Mild congestive failure probable trace fluid on the left Austin Chu MD FACR Upper Extremity Ultrasound 11/23/17 0000 Signed Impressions: Service Date/Time: Thursday, November 23, 2017 20:28 - CONCLUSION: No DVT is identified within either upper extremity. Froylan Sahu MD Renal Ultrasound 11/23/17 0000 Signed Impressions: Service Date/Time: Thursday, November 23, 2017 14:32 - CONCLUSION: 1. No evidence of hydronephrosis. 2. Chronic medical renal disease. 3. Multiple Bilateral benign-appearing renal cysts. 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 acute/chronic kidney dz stage 4 hx temp dialysis after bowel perforation 2. volume overload 3. acute on chronic anemia 4. afib on anticoagulation 5. htn 6. hx prostate ca/radiation 7. hx sbo/ischemic bowel perforation/resection - Echocardiogram (11/24) --> EF 50-55% - baseline CKD stage 4 now with decline in Renal function has the etiology is not completely clear - Lexiscan showed no reversible ischemia but patient has been having runs of NSVT, - LHC (11/29) with Dr. Tay Robles. No critical stenosis requiring intervention - EP study for NSVT with Dr. Rea 12/02 negative.- - Vascath placed (11/28/17) - Pt underwent HD 11/29, 11/30 - Lasix 80mg IV daily convert to po 12/03 -Pt going for AVF creation this AM with dr Shaw -discussed with Dr Brito...probably hold off on permcath and if cr and pt stable tomorrow will d/c home tomorrow with f/u. lower dose lasix to 40mg daily on dc (2) Afib ICD Codes: I48.91 - Afib Status: Chronic Plan: - telemetry (11/26) showed NSVT and periods of bradycardia with causes. Currently telemetry - decrease coreg 12.5mg BID - Echocardiogram (11/24) --> EF 55-60%, moderate TR - Case d/w Dr. Tay Robles (11/26) and (11/28) - Lexiscan (11/27) --> mild hypokinesis - S/P cardiac cath (11/29) with Dr. Robles with no intervention indicated - plan for EP study with Dr. Rea on Saturday - Per nephrology Eliquis on hold for possible fistula placement Saturday - see above (3) Anemia ICD Codes: D64.9 - Anemia, unspecified Status: Acute Plan: - s/p 2 units blood. (4) HTN (hypertension) ICD Codes: I10 - HTN (hypertension) Status: Chronic (5) History of prostate cancer ICD Codes: Z85.46 - History of prostate cancer Status: Chronic Problem Qualifiers (1) Afib: Qualified Codes: I48.2 - Chronic atrial fibrillation (2) Anemia: Qualified Codes: N18.4 - Chronic kidney disease, stage 4 (severe); D63.1 - Anemia in chronic kidney disease Chauncey Ashton MD Dec 05, 2017 09:42
--- NOTE | 2017-12-05 10:17 | MP ---
cc: Jesus Shaw MD DATE OF OPERATION: 12/05/17 PREOPERATIVE DIAGNOSIS: Near end-stage renal disease, need for dialysis access. POSTOPERATIVE DIAGNOSIS: Near end-stage renal disease, need for dialysis access. PROCEDURE: Left radiocephalic arteriovenous fistula. ATTENDING SURGEON: Dr. Jesus Shaw. POLISHER AND BUFFER SURGEON: Jesus Raya. ANESTHESIA: LMA. 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 Preoperatively when assessed, he had an adequate left cephalic vein. He was taken to the operating room for Robert fistula (radiocephalic). Intraoperatively, it was found his cephalic vein was adequate but did not dilate once arterialized; however, it had a reasonable thrill. DESCRIPTION OF PROCEDURE: Informed consent was obtained. Patient was taken to the operating room, placed supine on the operating room table, and appropriate timeout was taken to assure the patient's identity, operative site and planned procedure. The administration of 2 g of Ancef was initiated prior to skin incision and will be discontinued after a single preoperative dose. Everyone in the room agreed with the timeout and we proceeded. Incision was made between the radial artery and the cephalic vein, carried down through subcutaneous tissue with electrocautery. The cephalic vein was identified, dissected free for several centimeters and mobilized. The distal end was transected after being clamped with a right angle clamp, and the distal end was oversewn with 3-0 silk suture. The proximal aspect had been marked for orientation and was sufficiently mobilized to reach the radial artery. The radial artery was identified, dissected free for several centimeters. The patient was systemically heparinized with 3000 units of IV heparin. Proximal and distal control was obtained with profunda clamps, and a longitudinal arteriotomy was made with an 11 blade and extended with [place] scissors. The vein was spatulated and sewn end-to-side with running 6-0 Prolene suture. At the completion, it was flushed and noted to be hemostatic. There was a weak thrill in the fistula but a good Doppler signal, and there was a palpable distal radial pulse. The wound was irrigated, infiltrated and made hemostatic with Surgicel and electrocautery. It was infiltrated with Marcaine, and the wound was closed with 3-0 Polysorb and 4-0 Monocryl. The sponge, needle counts were correct at the end of the case. I was present and scrubbed for entire procedure. MD SALAZAR Virk/CAROLE , 09:56 AM , 10:16 AM PANCHO
[2017-12-05] MEDS ORDERED: DO NOT ADM ANY ANTICOAGULANT DRUGS PRN (10:30)
[2017-12-05] MEDS: NIFEdipine 60 MG SUSTAINED RELEASE TAB PO SCH ×2 (11:56→20:55)
[2017-12-05] MEDS: ALLOPURINOL 100 MG TAB PO SCH (11:57)
[2017-12-05] MEDS: ASPIRIN 81 MG CHEW TAB CHEW SCH (11:57)
[2017-12-05] MEDS: CHOLECALCIFEROL (VIT D3) 1000 UNIT TAB PO SCH (11:57)
[2017-12-05] MEDS ORDERED: LIDOCAINE HCL 1% PF 5 ML SYRINGE OTHER ONE (12:00)
[2017-12-05] MEDS ORDERED: ONDANSETRON HCL 4 MG/2 ML VIAL IV ONE (12:00)
[2017-12-05] MEDS ORDERED: PROPOFOL 200 MG/20 ML AMP IV ONE (12:00)
[2017-12-05] MEDS ORDERED: PHENYLEPH/NS 1000 MCG/10 ML SYR IV ONE (12:00)
[2017-12-05] MEDS: SODIUM CHLORIDE 0.9% FLUSH 10 ML FLUSH IV FLUSH SCH ×2 (12:00→20:56)
[2017-12-05] MEDS ORDERED: ePHEDrine/NS 25 MG/5 ML SYRINGE IV ONE (12:00)
[2017-12-05] MEDS: TERAZOSIN HCL 1 MG CAP PO SCH (20:55)
[2017-12-05] MEDS: ATORVASTATIN 10 MG TAB PO SCH (20:55)
[2017-12-06] VITALS (26 sets, daily range): BP systolic 138–153; BP diastolic 70–83; PULSE 60–80; RESP 16–18; TEMP 97.1–98.4; O2SAT 92–97
[2017-12-06] MEDS: ALPRAZolam 0.5 MG TAB PO PRN (00:31)
[2017-12-06 07:20] LABS: ALBUMIN 2.7 GM/DL (3.4-5.0); BICARBONATE 25.2 MEQ/L (21.0-32.0); CALCIUM 8.2 MG/DL (8.5-10.1); CREATININE 4.42 MG/DL (0.60-1.30); PHOSPHORUS 3.8 MG/DL (2.5-4.9)
[2017-12-06] MEDS: ALLOPURINOL 100 MG TAB PO SCH (08:13)
[2017-12-06] MEDS: NIFEdipine 60 MG SUSTAINED RELEASE TAB PO SCH ×2 (08:13→21:16)
[2017-12-06] MEDS: hydrALAZINE HCL 50 MG TAB PO SCH ×3 (08:13→18:05)
[2017-12-06] MEDS: CARVEDILOL 12.5 MG TAB PO SCH ×2 (08:13→21:16)
[2017-12-06] MEDS: CHOLECALCIFEROL (VIT D3) 1000 UNIT TAB PO SCH (08:14)
[2017-12-06] MEDS: ASPIRIN 81 MG CHEW TAB CHEW SCH (08:14)
[2017-12-06] MEDS: SODIUM CHLORIDE 0.9% FLUSH 10 ML FLUSH IV FLUSH SCH ×2 (08:17→21:16)
--- NOTE | 2017-12-06 09:05 | HHI.PR ---
Subjective Remarks eager for dc/ denies sob or worsening edema refusing pain meds Objective Vitals heart reg lung cta ab d s/.nt ext lue fistula site noted vascath Vital Signs Date Time Temp Pulse Resp B/P (MAP) Pulse Ox O2 Delivery O2 Flow Rate FiO2 12/06/17 06:00 66 12/06/17 05:00 67 12/06/17 04:00 69 12/06/17 03:00 98.3 70 18 138/70 (92) 97 12/06/17 03:00 70 12/06/17 02:00 68 12/06/17 01:00 67 12/06/17 00:00 64 12/05/17 23:00 63 12/05/17 23:00 98.0 64 20 144/76 (98) 97 12/05/17 22:00 76 12/05/17 21:00 61 12/05/17 20:00 70 12/05/17 19:43 21 12/05/17 19:00 97 Room Air 12/05/17 19:00 59 12/05/17 19:00 98.2 70 18 155/82 (106) 97 12/05/17 18:10 58 12/05/17 16:00 54 12/05/17 15:09 98.0 58 18 142/71 (94) 97 12/05/17 15:00 55 12/05/17 14:23 63 12/05/17 13:00 58 12/05/17 12:00 54 12/05/17 11:32 98.5 55 15 130/83 (99) 97 12/05/17 11:00 55 12/05/17 10:15 58 12 129/71 (90) 98 Room Air 12/05/17 10:00 60 14 132/68 (89) 98 Room Air 12/05/17 09:51 97.7 63 12 150/69 (96) 100 Simple Mask 6 Result Diagram: 12/06/17 0543 Imaging Last Impressions Myocardial Perfusion Scan Nuc Med 11/27/17 0000 Signed Impressions: Service Date/Time: Monday, November 27, 2017 14:29 - CONCLUSION: Mild global hypokinesis. No reversible ischemic segments are identified. RISK CATEGORY: Intermediate (1-3%% Annual Mortality Rate) Tay Morelos MD Chest X-Ray 11/27/17 0000 Signed Impressions: Service Date/Time: Monday, November 27, 2017 10:50 - CONCLUSION: Mild congestive failure probable trace fluid on the left Austin Chu MD FACR Upper Extremity Ultrasound 11/23/17 0000 Signed Impressions: Service Date/Time: Thursday, November 23, 2017 20:28 - CONCLUSION: No DVT is identified within either upper extremity. Froylan Sahu MD Renal Ultrasound 11/23/17 0000 Signed Impressions: Service Date/Time: Thursday, November 23, 2017 14:32 - CONCLUSION: 1. No evidence of hydronephrosis. 2. Chronic medical renal disease. 3. Multiple Bilateral benign-appearing renal cysts. 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 acute/chronic kidney dz stage 4 hx temp dialysis after bowel perforation 2. volume overload 3. acute on chronic anemia 4. afib on anticoagulation 5. htn 6. hx prostate ca/radiation 7. hx sbo/ischemic bowel perforation/resection - Echocardiogram (11/24) --> EF 50-55% - baseline CKD stage 4 now with decline in Renal function has the etiology is not completely clear - Lexiscan showed no reversible ischemia but patient has been having runs of NSVT, - LHC (11/29) with Dr. Tay Robles. No critical stenosis requiring intervention - EP study for NSVT with Dr. Rea 12/02 negative.- - Vascath placed (11/28/17) - Pt underwent HD 11/29, 11/30 - Lasix 80mg IV daily convert to po 12/03 - AVF creation with dr Shaw left arm 12/05 -discussed with Dr Brito...He is to decide today on home with lab/sx f/u vs placing permath before d/c..will hold eliquis until he decides. worsening renal function noted. lower dose lasix to 40mg daily on dc (2) Afib ICD Codes: I48.91 - Afib Status: Chronic Plan: - telemetry (11/26) showed NSVT and periods of bradycardia with causes. Currently telemetry - decrease coreg 12.5mg BID - Echocardiogram (11/24) --> EF 55-60%, moderate TR - Case d/w Dr. Tay Robles (11/26) and (11/28) - Lexiscan (11/27) --> mild hypokinesis - S/P cardiac cath (11/29) with Dr. Robles with no intervention indicated - plan for EP study with Dr. Rea on Saturday - Per nephrology Eliquis on hold for possible fistula placement Saturday - see above (3) Anemia ICD Codes: D64.9 - Anemia, unspecified Status: Acute Plan: - s/p 2 units blood. (4) HTN (hypertension) ICD Codes: I10 - HTN (hypertension) Status: Chronic (5) History of prostate cancer ICD Codes: Z85.46 - History of prostate cancer Status: Chronic Problem Qualifiers (1) Afib: Qualified Codes: I48.2 - Chronic atrial fibrillation (2) Anemia: Qualified Codes: N18.4 - Chronic kidney disease, stage 4 (severe); D63.1 - Anemia in chronic kidney disease Chauncey Ashton MD Dec 06, 2017 09:05
--- NOTE | 2017-12-06 09:45 | PD.VS.PN ---
Subjective POD #: 1 Procedure(s): L radiocephalic AVF Subjective/Hospital Course 82/M near ESRD Pt s/p L UE AVF Pt w/o complaints of hand pain Mild L UE swelling Incision to L UE I/C/D Objective Vitals/I&O Date Time Temp Pulse Resp B/P (MAP) Pulse Ox O2 Delivery O2 Flow Rate FiO2 12/06/17 06:00 66 12/06/17 05:00 67 12/06/17 04:00 69 12/06/17 03:00 98.3 70 18 138/70 (92) 97 12/06/17 03:00 70 12/06/17 02:00 68 12/06/17 01:00 67 12/06/17 00:00 64 12/05/17 23:00 63 12/05/17 23:00 98.0 64 20 144/76 (98) 97 12/05/17 22:00 76 12/05/17 21:00 61 12/05/17 20:00 70 12/05/17 19:43 21 12/05/17 19:00 97 Room Air 12/05/17 19:00 59 12/05/17 19:00 98.2 70 18 155/82 (106) 97 12/05/17 18:10 58 12/05/17 16:00 54 12/05/17 15:09 98.0 58 18 142/71 (94) 97 12/05/17 15:00 55 12/05/17 14:23 63 12/05/17 13:00 58 12/05/17 12:00 54 12/05/17 11:32 98.5 55 15 130/83 (99) 97 12/05/17 11:00 55 12/05/17 10:15 58 12 129/71 (90) 98 Room Air 12/05/17 10:00 60 14 132/68 (89) 98 Room Air 12/05/17 09:51 97.7 63 12 150/69 (96) 100 Simple Mask 6 12/06/17 12/06/17 12/06/17 07:00 15:00 23:00 Intake Total 400 ml Output Total 750 ml Balance -350 ml Exam: GENERAL: A&OX3,NAD,GCS15 SKIN: UE Warm and dry with motor intact Incision to L UE AVF intact with surgical glue closure/ Incision w/o R/D/S HEAD: Normocephalic. EYES: No scleral icterus. No injection or drainage. NECK: Supple, trachea midline. No JVD or lymphadenopathy. CARDIOVASCULAR: Regular rate and rhythm without murmurs, gallops, or rubs. + R/L radial pulses present + thrill palpated near L AVF Laboratory Laboratory Tests Test 12/06/17 05:43 Blood Urea Nitrogen 58 Creatinine 4.42 Random Glucose 81 Albumin 2.7 Calcium Level 8.2 Phosphorus Level 3.8 Sodium Level 143 Potassium Level 4.5 Chloride Level 108 Carbon Dioxide Level 25.2 Anion Gap 10 Estimat Glomerular Filtration Rate 13 Assessment and Plan Plan Pt near ESRD Pt S/P L UE AVF POD 1 Pt with expected mild discomfort near incision site Pt w/o Hand Pain Plan Discussed and reviewed post operative care and management of AVF with pt and spouse All questions answered Pt clear for D/C from a vascular stand point Arranged out pt follow up Kari Mckoy NP [facility] [phone] Kari MckoyP Dec 06, 2017 09:45
--- NOTE | 2017-12-06 14:08 | HHI.NPPN ---
Subjective Renal Failure: Chronic, Acute, Stage IV Interval History Renal function is worse today. Seen during dialysis today. He is frustrated about not being discharged. (Shirley Carey) Review of Systems General Constitutional: Fatigue (Shirley Carey) Respiratory Lungs: SOB (Shirley Carey) Cardiovascular Cardiac: Edema (Shirley Carey) Objective Data Data Vital Signs Date Time Temp Pulse Resp B/P (MAP) Pulse Ox O2 Delivery O2 Flow Rate FiO2 12/06/17 11:00 64 12/06/17 08:00 71 12/06/17 07:00 92 Room Air 12/06/17 07:00 97.2 76 16 153/82 (105) 92 12/06/17 07:00 76 12/06/17 06:00 66 12/06/17 05:00 67 12/06/17 04:00 69 12/06/17 03:00 98.3 70 18 138/70 (92) 97 12/06/17 03:00 70 12/06/17 02:00 68 12/06/17 01:00 67 12/06/17 00:00 64 12/05/17 23:00 63 12/05/17 23:00 98.0 64 20 144/76 (98) 97 12/05/17 22:00 76 12/05/17 21:00 61 12/05/17 20:00 70 12/05/17 19:43 21 12/05/17 19:00 97 Room Air 12/05/17 19:00 59 12/05/17 19:00 98.2 70 18 155/82 (106) 97 12/05/17 18:10 58 12/05/17 16:00 54 12/05/17 15:09 98.0 58 18 142/71 (94) 97 12/05/17 15:00 55 12/05/17 14:23 63 (Shirley Carey) -: 12/06/17 0543 Tubes & Lines: Vas-Cath (Shirley Carey) Physical Exam General Appearance: Well Developed, Well Nourished, No Acute Distress, Comfortable (Shirley Carey) Ears & Nose Ears & Nose Exam: Tympanic Membranes Normal (Shirley Carey) Throat Throat Exam: Oral Mucosa [place] & Moist (Shirley Carey HOSPITAL MONITOR) Neck Neck Exam: Neck Supple (Shirley Carey HOSPITAL MONITOR) Pulmonary Resp Exam: Clear Bilaterally, Breath Sounds Equal, No Distress, Decreased Bases (Shirley Carey HOSPITAL MONITOR) Cardiology CV Exam: Regular, Normal Sinus Rhythm (Shirley CareyP) Gastrointestinal/Abdomen GI Exam: Soft, Non-Tender, Positive Bowel Movement (Shirley Carey HOSPITAL MONITOR) Musculoskeletal MS Exam: Joints Intact, Normal Tone (Shirley Carey HOSPITAL MONITOR) Integumentary Skin Exam: Clear, Warm, Dry, Intact (Shirley Carey HOSPITAL MONITOR) Extremeties Extremities Exam: Pedal Pulses Palpable, Trace Edema, Dependent Edema (Shirley Carey HOSPITAL MONITOR) Neurologic Neuro Exam: Alert, Awake, Oriented, Speech Clear, Moving All Extremities (Shirley Carey) Psychiatric Psych Exam: Appropriate Responses (Shirley Carey) Assessment/Plan Discussed Condition With: Patient, Spouse Assessment Summary: RENETTA/Acute Renal Failure, Anemia of CKD, Fluid/Volume Overload, Hypertension, CKD Stage IV Problem List: (1) Acute worsening of stage 4 chronic kidney disease ICD Codes: N28.9 - Disorder of kidney and ureter, unspecified; N18.4 - Chronic kidney disease, stage 4 (severe) Status: Acute Plan: History of CKD 4, Baseline GFR 20 to 25. he was on dialysis in the past for a few months then recovered. Renal function has declined in the past month, the etiology is not completely clear s/p VasCath placement 11/28 s/p cardiac cath on 11/29. Dialysis initiated on 11/29, 11/30. We were not sure if he would need additional dialysis treatments. However his renal function declined as of today. Seen during HD today on a 3K, 300 BFR, goal 2L. Lasix on hold. s/p AVF placement , to follow with vascular after discharge. Plan for outpatient HD arrangements. He lives in [facility] but willing to consider [facility] for follow up purposes. Avoid nephrotoxic agents. NPO Saturday PM for Permcath Saturday AM (2) Anemia ICD Codes: D64.9 - Anemia, unspecified Status: Acute Plan: On Venover Give Epogen with HD Given 2 units last week. (3) HTN (hypertension) ICD Codes: I10 - HTN (hypertension) Status: Chronic Plan: On Hydralazine TID Procardia XL 60mg PO BID Lisinopril held in light of possible RENETTA on CKD. Coreg continues Holding Lasix. (4) Afib ICD Codes: I48.91 - Afib Status: Chronic Plan: patient also had recurrent runs of Ventricular tachycardia. Had Cardiac cath. No intervention was needed. EP study was negative. (5) History of prostate cancer ICD Codes: Z85.46 - History of prostate cancer Status: Chronic Plan: Remote history, not an active issue. (Shirley Carey) Plan patient was seen and examined. Dialyzed today, but he has good urine output. Long discussion with the patient and his . s/p AVF placement. Monitor urine output and daily labs. It is still unclear if he needs to continue dialysis. (Tai Brito MD) Problem Qualifiers (1) Anemia: Qualified Codes: N18.4 - Chronic kidney disease, stage 4 (severe); D63.1 - Anemia in chronic kidney disease (2) Afib: Qualified Codes: I48.2 - Chronic atrial fibrillation Shirley Carey Dec 06, 2017 14:08 Tai Brito MD Dec 06, 2017 21:25
[2017-12-06] MEDS: EPOETIN ALFA 10,000 UNITS/ML VIAL IV PUSH PRN (15:12)
[2017-12-06] MEDS: GENTAMICIN SULFATE 20 MG/2 ML VIAL OTHER PRN (15:12)
[2017-12-06] MEDS: HEPARIN SODIUM - IV 10,000 UNITS/10 ML VIAL PRN (15:13)
[2017-12-06] MEDS: TERAZOSIN HCL 1 MG CAP PO SCH (21:16)
[2017-12-06] MEDS: ATORVASTATIN 10 MG TAB PO SCH (21:16)
[2017-12-07] VITALS (27 sets, daily range): BP systolic 135–158; BP diastolic 74–93; PULSE 62–92; RESP 16–18; TEMP 97–98.5; O2SAT 94–99
[2017-12-07 06:10] LABS: CREATININE 3.05 MG/DL (0.60-1.30)
[2017-12-07 06:11] LABS: ALBUMIN 2.7 GM/DL (3.4-5.0); BICARBONATE 29.6 MEQ/L (21.0-32.0); CALCIUM 8.2 MG/DL (8.5-10.1); PHOSPHORUS 3.4 MG/DL (2.5-4.9)
--- NOTE | 2017-12-07 08:09 | HHI.PR ---
Subjective Remarks asking for outpt HD arrangements to be made closer to his home in [facility] Objective Vitals heart reg lung cta abd /st ext no edema vascath Vital Signs Date Time Temp Pulse Resp B/P (MAP) Pulse Ox O2 Delivery O2 Flow Rate FiO2 12/07/17 06:00 66 12/07/17 05:00 68 12/07/17 04:00 84 12/07/17 03:49 76 16 152/84 (106) 94 12/07/17 03:00 75 12/07/17 02:00 68 12/07/17 01:00 70 12/07/17 00:00 72 12/06/17 23:46 75 16 153/83 (106) 95 12/06/17 23:00 76 12/06/17 22:00 72 12/06/17 21:00 78 12/06/17 20:51 93 12/06/17 20:00 74 12/06/17 19:00 97 Room Air 12/06/17 19:00 80 12/06/17 19:00 97.1 75 16 147/75 (99) 97 12/06/17 18:00 74 12/06/17 17:00 72 12/06/17 16:00 76 12/06/17 15:45 98.4 74 18 142/74 (96) 94 12/06/17 15:45 74 12/06/17 14:00 72 12/06/17 13:00 68 12/06/17 12:00 70 12/06/17 11:00 64 12/06/17 11:00 64 12/06/17 10:00 60 12/06/17 09:00 62 Result Diagram: 12/07/17 0452 Imaging Last Impressions Myocardial Perfusion Scan Nuc Med 11/27/17 0000 Signed Impressions: Service Date/Time: Monday, November 27, 2017 14:29 - CONCLUSION: Mild global hypokinesis. No reversible ischemic segments are identified. RISK CATEGORY: Intermediate (1-3%% Annual Mortality Rate) Tay Morelos MD Chest X-Ray 11/27/17 0000 Signed Impressions: Service Date/Time: Monday, November 27, 2017 10:50 - CONCLUSION: Mild congestive failure probable trace fluid on the left Austin Chu MD FACR Upper Extremity Ultrasound 11/23/17 0000 Signed Impressions: Service Date/Time: Thursday, November 23, 2017 20:28 - CONCLUSION: No DVT is identified within either upper extremity. Froylan Sahu MD Renal Ultrasound 11/23/17 0000 Signed Impressions: Service Date/Time: Thursday, November 23, 2017 14:32 - CONCLUSION: 1. No evidence of hydronephrosis. 2. Chronic medical renal disease. 3. Multiple Bilateral benign-appearing renal cysts. 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 acute/chronic kidney dz stage 4 hx temp dialysis after bowel perforation 2. volume overload 3. acute on chronic anemia 4. afib on anticoagulation 5. htn 6. hx prostate ca/radiation 7. hx sbo/ischemic bowel perforation/resection - Echocardiogram (11/24) --> EF 50-55% - baseline CKD stage 4 now with decline in Renal function has the etiology is not completely clear - Lexiscan showed no reversible ischemia but patient has been having runs of NSVT, - LHC (11/29) with Dr. Tay Robles. No critical stenosis requiring intervention - EP study for NSVT with Dr. Rea 12/02 negative.- - Vascath placed (11/28/17) - Pt underwent HD 11/29, 11/30, 12/06 - Lasix 80mg IV daily convert to po 12/03 - AVF creation with dr Shaw left arm 12/05 -discussed with Dr Brito.. - Pt will get permath on Saturday...hold eliquis. then d/c home when HD arrangement made. Pt asking for HD clinic close to home in [facility]. (2) Afib ICD Codes: I48.91 - Afib Status: Chronic Plan: - telemetry (11/26) showed NSVT and periods of bradycardia with causes. Currently telemetry - decrease coreg 12.5mg BID - Echocardiogram (11/24) --> EF 55-60%, moderate TR - Case d/w Dr. Tay Robles (11/26) and (11/28) - Lexiscan (11/27) --> mild hypokinesis - S/P cardiac cath (11/29) with Dr. Robles with no intervention indicated - plan for EP study with Dr. Rea on Saturday - Per nephrology Jed on hold for possible fistula placement Saturday - see above (3) Anemia ICD Codes: D64.9 - Anemia, unspecified Status: Acute Plan: - s/p 2 units blood. (4) HTN (hypertension) ICD Codes: I10 - HTN (hypertension) Status: Chronic (5) History of prostate cancer ICD Codes: Z85.46 - History of prostate cancer Status: Chronic Problem Qualifiers (1) Afib: Qualified Codes: I48.2 - Chronic atrial fibrillation (2) Anemia: Qualified Codes: N18.4 - Chronic kidney disease, stage 4 (severe); D63.1 - Anemia in chronic kidney disease Chauncey Ashton MD Dec 07, 2017 08:09
[2017-12-07] MEDS: ASPIRIN 81 MG CHEW TAB CHEW SCH (09:10)
[2017-12-07] MEDS: ALLOPURINOL 100 MG TAB PO SCH (09:10)
[2017-12-07] MEDS: CARVEDILOL 12.5 MG TAB PO SCH ×2 (09:10→21:20)
[2017-12-07] MEDS: CHOLECALCIFEROL (VIT D3) 1000 UNIT TAB PO SCH (09:10)
[2017-12-07] MEDS: hydrALAZINE HCL 50 MG TAB PO SCH ×3 (09:10→17:48)
[2017-12-07] MEDS: NIFEdipine 60 MG SUSTAINED RELEASE TAB PO SCH ×2 (09:10→21:20)
[2017-12-07] MEDS: SODIUM CHLORIDE 0.9% FLUSH 10 ML FLUSH IV FLUSH SCH ×2 (09:11→21:22)
--- NOTE | 2017-12-07 11:23 | HHI.NPPN ---
Subjective Renal Failure: Chronic, Acute, Stage IV Additional Remarks Patient is alert, no SOB, eating well. Review of Systems General Constitutional: Fatigue Respiratory Lungs: SOB Cardiovascular Cardiac: Edema Objective Data Data Vital Signs Date Time Temp Pulse Resp B/P (MAP) Pulse Ox O2 Delivery O2 Flow Rate FiO2 12/07/17 10:16 70 12/07/17 09:35 76 12/07/17 09:35 94 21 12/07/17 08:15 97.5 76 18 158/93 (114) 95 12/07/17 08:15 95 Room Air 12/07/17 08:15 75 12/07/17 06:00 66 12/07/17 05:00 68 12/07/17 04:00 84 12/07/17 03:49 76 16 152/84 (106) 94 12/07/17 03:00 75 12/07/17 02:00 68 12/07/17 01:00 70 12/07/17 00:00 72 12/06/17 23:46 75 16 153/83 (106) 95 12/06/17 23:00 76 12/06/17 22:00 72 12/06/17 21:00 78 12/06/17 20:51 93 12/06/17 20:00 74 12/06/17 19:00 97 Room Air 12/06/17 19:00 80 12/06/17 19:00 97.1 75 16 147/75 (99) 97 12/06/17 18:00 74 12/06/17 17:00 72 12/06/17 16:00 76 12/06/17 15:45 98.4 74 18 142/74 (96) 94 12/06/17 15:45 74 12/06/17 14:00 72 12/06/17 13:00 68 12/06/17 12:00 70 -: 12/07/17 0452 Tubes & Lines: Vas-Cath Physical Exam General Appearance: Well Developed, Well Nourished, No Acute Distress, Comfortable Ears & Nose Ears & Nose Exam: Tympanic Membranes Normal Throat Throat Exam: Oral Mucosa [place] & Moist Neck Neck Exam: Neck Supple Pulmonary Resp Exam: Clear Bilaterally, Breath Sounds Equal, No Distress, Decreased Bases Cardiology CV Exam: Regular, Normal Sinus Rhythm Gastrointestinal/Abdomen GI Exam: Soft, Non-Tender, Positive Bowel Movement Musculoskeletal MS Exam: Joints Intact, Normal Tone Integumentary Skin Exam: Clear, Warm, Dry, Intact Extremeties Extremities Exam: Pedal Pulses Palpable, Trace Edema, Dependent Edema Neurologic Neuro Exam: Alert, Awake, Oriented, Speech Clear, Moving All Extremities Psychiatric Psych Exam: Appropriate Responses Assessment/Plan Discussed Condition With: Patient, Spouse Assessment Summary: RENETTA/Acute Renal Failure, Anemia of CKD, Fluid/Volume Overload, Hypertension, CKD Stage IV Problem List: (1) Acute worsening of stage 4 chronic kidney disease ICD Codes: N28.9 - Disorder of kidney and ureter, unspecified; N18.4 - Chronic kidney disease, stage 4 (severe) Status: Acute Plan: History of CKD 4, Baseline GFR 20 to 25. he was on dialysis in the past for a few months then recovered. Renal function has declined in the past month, the etiology is not completely clear s/p VasCath placement 11/28 s/p cardiac cath on 11/29. Dialysis initiated on 11/29, 11/30. We were not sure if he would need additional dialysis treatments. However his renal function declined as of today. Seen during HD today on a 3K, 300 BFR, goal 2L. Lasix on hold. s/p AVF placement , to follow with vascular after discharge. Plan for outpatient HD arrangements. He lives in [facility] but willing to consider [facility] for follow up purposes. Avoid nephrotoxic agents. NPO Saturday PM for Permcath Saturday AM. Has AVF done, HD will be on Saturday. (2) Anemia ICD Codes: D64.9 - Anemia, unspecified Status: Acute Plan: On Venover Give Epogen with HD Given 2 units last week. (3) HTN (hypertension) ICD Codes: I10 - HTN (hypertension) Status: Chronic Plan: On Hydralazine TID Procardia XL 60mg PO BID Lisinopril held in light of possible RENETTA on CKD. Coreg continues Holding Lasix. (4) Afib ICD Codes: I48.91 - Afib Status: Chronic Plan: patient also had recurrent runs of Ventricular tachycardia. Had Cardiac cath. No intervention was needed. EP study was negative. (5) History of prostate cancer ICD Codes: Z85.46 - History of prostate cancer Status: Chronic Plan: Remote history, not an active issue. Plan patient was seen and examined. Dialyzed today, but he has good urine output. Long discussion with the patient and his . s/p AVF placement. Monitor urine output and daily labs. It is still unclear if he needs to continue dialysis. Problem Qualifiers (1) Anemia: Qualified Codes: N18.4 - Chronic kidney disease, stage 4 (severe); D63.1 - Anemia in chronic kidney disease (2) Afib: Qualified Codes: I48.2 - Chronic atrial fibrillation Ivon Bhatti MD Dec 07, 2017 11:23
[2017-12-07] MEDS: TERAZOSIN HCL 1 MG CAP PO SCH (21:20)
[2017-12-07] MEDS: ATORVASTATIN 10 MG TAB PO SCH (21:20)
[2017-12-08] VITALS (26 sets, daily range): BP systolic 138–154; BP diastolic 74–83; PULSE 59–86; RESP 16; TEMP 97.4–98.5; O2SAT 93–98
[2017-12-08 06:33] LABS: ALBUMIN 2.7 GM/DL (3.4-5.0); CALCIUM 8.3 MG/DL (8.5-10.1); CREATININE 3.53 MG/DL (0.60-1.30); PHOSPHORUS 3.3 MG/DL (2.5-4.9)
[2017-12-08] MEDS: hydrALAZINE HCL 50 MG TAB PO SCH ×3 (08:14→17:31)
[2017-12-08] MEDS: ALLOPURINOL 100 MG TAB PO SCH (08:14)
[2017-12-08] MEDS: NIFEdipine 60 MG SUSTAINED RELEASE TAB PO SCH ×2 (08:14→20:51)
[2017-12-08] MEDS: ASPIRIN 81 MG CHEW TAB CHEW SCH (08:14)
[2017-12-08] MEDS: CARVEDILOL 12.5 MG TAB PO SCH ×2 (08:14→20:51)
[2017-12-08] MEDS: CHOLECALCIFEROL (VIT D3) 1000 UNIT TAB PO SCH (08:14)
[2017-12-08] MEDS: SODIUM CHLORIDE 0.9% FLUSH 10 ML FLUSH IV FLUSH SCH ×2 (08:15→20:52)
--- NOTE | 2017-12-08 08:50 | HHI.PR ---
Subjective Remarks calm. about to eat breakfast. requesting HD in [place] Objective Vitals reg lung cta abd s/nt ext no edema vascath Vital Signs Date Time Temp Pulse Resp B/P (MAP) Pulse Ox O2 Delivery O2 Flow Rate FiO2 12/08/17 06:00 68 12/08/17 05:00 62 12/08/17 04:10 94 Room Air 12/08/17 04:08 65 16 150/74 (99) 94 12/08/17 04:00 66 12/08/17 03:00 68 12/08/17 01:00 68 12/08/17 00:00 64 12/07/17 23:56 73 16 150/84 (106) 95 12/07/17 23:55 95 Room Air 12/07/17 23:00 71 12/07/17 22:00 76 12/07/17 21:00 66 12/07/17 20:00 70 12/07/17 19:50 98.5 73 16 141/76 (97) 98 12/07/17 19:50 98 Room Air 12/07/17 19:39 98 Nasal Cannula 21 12/07/17 19:00 73 12/07/17 18:06 74 12/07/17 17:03 62 12/07/17 16:19 92 12/07/17 15:08 99 Room Air 12/07/17 15:08 64 12/07/17 15:08 98.0 65 18 135/74 (94) 99 12/07/17 14:08 64 12/07/17 13:09 71 12/07/17 12:03 63 12/07/17 11:26 97.0 73 18 139/77 (97) 99 12/07/17 11:26 99 Room Air 12/07/17 11:26 70 12/07/17 10:16 70 12/07/17 09:35 76 12/07/17 09:35 94 21 Result Diagram: 12/08/17 0517 Imaging Last Impressions Myocardial Perfusion Scan Nuc Med 11/27/17 0000 Signed Impressions: Service Date/Time: Monday, November 27, 2017 14:29 - CONCLUSION: Mild global hypokinesis. No reversible ischemic segments are identified. RISK CATEGORY: Intermediate (1-3%% Annual Mortality Rate) Tay Morelos MD Chest X-Ray 11/27/17 0000 Signed Impressions: Service Date/Time: Monday, November 27, 2017 10:50 - CONCLUSION: Mild congestive failure probable trace fluid on the left Austin Chu MD FACR Upper Extremity Ultrasound 11/23/17 0000 Signed Impressions: Service Date/Time: Thursday, November 23, 2017 20:28 - CONCLUSION: No DVT is identified within either upper extremity. Froylan Sahu MD Renal Ultrasound 11/23/17 0000 Signed Impressions: Service Date/Time: Thursday, November 23, 2017 14:32 - CONCLUSION: 1. No evidence of hydronephrosis. 2. Chronic medical renal disease. 3. Multiple Bilateral benign-appearing renal cysts. 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 acute/chronic kidney dz stage 4 hx temp dialysis after bowel perforation 2. volume overload 3. acute on chronic anemia 4. afib on anticoagulation 5. htn 6. hx prostate ca/radiation 7. hx sbo/ischemic bowel perforation/resection - Echocardiogram (11/24) --> EF 50-55% - baseline CKD stage 4 now with decline in Renal function has the etiology is not completely clear - Lexiscan showed no reversible ischemia but patient has been having runs of NSVT, - LHC (11/29) with Dr. Tay Robles. No critical stenosis requiring intervention - EP study for NSVT with Dr. Rea 12/02 negative.- - Vascath placed (11/28/17) - Pt underwent HD 11/29, 11/30, 12/06 - Lasix 80mg IV daily convert to po 12/03 - AVF creation with dr Shaw left arm 12/05 -discussed with Dr Brito.. - Pt will get permath on Saturday...hold eliquis. then d/c home when HD arrangement made. Pt asking for HD clinic close to home in [facility]. cont current rx today. (2) Afib ICD Codes: I48.91 - Afib Status: Chronic Plan: - telemetry (11/26) showed NSVT and periods of bradycardia with causes. Currently telemetry - decrease coreg 12.5mg BID - Echocardiogram (11/24) --> EF 55-60%, moderate TR - Case d/w Dr. Tay Robles (11/26) and (11/28) - Lexiscan (11/27) --> mild hypokinesis - S/P cardiac cath (11/29) with Dr. Robles with no intervention indicated - plan for EP study with Dr. Rea on Saturday - Per nephrology Eliquis on hold for possible fistula placement Saturday - see above (3) Anemia ICD Codes: D64.9 - Anemia, unspecified Status: Acute Plan: - s/p 2 units blood. (4) HTN (hypertension) ICD Codes: I10 - HTN (hypertension) Status: Chronic (5) History of prostate cancer ICD Codes: Z85.46 - History of prostate cancer Status: Chronic Problem Qualifiers (1) Afib: Qualified Codes: I48.2 - Chronic atrial fibrillation (2) Anemia: Qualified Codes: N18.4 - Chronic kidney disease, stage 4 (severe); D63.1 - Anemia in chronic kidney disease Chauncey Ashton MD Dec 08, 2017 08:50
--- NOTE | 2017-12-08 12:00 | HHI.NPPN ---
Subjective Renal Failure: Chronic, Acute, Stage IV Additional Remarks Patient is alert, no SOB, eating well. 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 (Louise Mcginnis) Review of Systems General Constitutional: Fatigue (Louise Mcginnis) Respiratory Respiratory Remarks Denies SOB (Louise Mcginnis) Cardiovascular Cardiac Remarks Mild edema (Louise Mcginnis) Gastrointestinal GI Remarks Denies abdominal pain (Louise Mcginnis) Objective Data Data Vital Signs Date Time Temp Pulse Resp B/P (MAP) Pulse Ox O2 Delivery O2 Flow Rate FiO2 12/08/17 09:15 93 21 12/08/17 06:00 68 12/08/17 05:00 62 12/08/17 04:10 94 Room Air 12/08/17 04:08 65 16 150/74 (99) 94 12/08/17 04:00 66 12/08/17 03:00 68 12/08/17 01:00 68 12/08/17 00:00 64 12/07/17 23:56 73 16 150/84 (106) 95 12/07/17 23:55 95 Room Air 12/07/17 23:00 71 12/07/17 22:00 76 12/07/17 21:00 66 12/07/17 20:00 70 12/07/17 19:50 98.5 73 16 141/76 (97) 98 12/07/17 19:50 98 Room Air 12/07/17 19:39 98 Nasal Cannula 21 12/07/17 19:00 73 12/07/17 18:06 74 12/07/17 17:03 62 12/07/17 16:19 92 12/07/17 15:08 99 Room Air 12/07/17 15:08 64 12/07/17 15:08 98.0 65 18 135/74 (94) 99 12/07/17 14:08 64 12/07/17 13:09 71 12/07/17 12:03 63 (Louise Mcginnis) -: 12/08/17 0517 Tubes & Lines: Vas-Cath (Louise Mcginnis) Physical Exam General Appearance: Well Developed, Well Nourished, No Acute Distress, Comfortable (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 he was on dialysis in the past for a few months then recovered. Renal function has declined in the past month, the etiology is not completely clear s/p VasCath placement 11/28 s/p cardiac cath on 11/29. Dialysis initiated on 11/29, 11/30. s/p AVF placement , to follow with vascular after discharge. Good thrill and bruit Plan for outpatient HD arrangements. He lives in [facility] but willing to consider [facility] for follow up purposes. NPO Saturday PM for Permcath Saturday AM. HD will be on tomorrow. Creatinine at 3.53 up from 3.05 today. Potassium WNL Continues to have Good UOP Avoid nephrotoxic agents. (2) Anemia ICD Codes: D64.9 - Anemia, unspecified Status: Acute Plan: On Venover Give Epogen with HD Given 2 units last week. (3) HTN (hypertension) ICD Codes: I10 - HTN (hypertension) Status: Chronic Plan: On Hydralazine TID Procardia XL 60mg PO BID Lisinopril held in light of possible RENETTA on CKD. Coreg continues Holding Lasix. (4) Afib ICD Codes: I48.91 - Afib Status: Chronic Plan: patient also had recurrent runs of Ventricular tachycardia. Had Cardiac cath. No intervention was needed. EP study was negative. (5) History of prostate cancer ICD Codes: Z85.46 - History of prostate cancer Status: Chronic Plan: Remote history, not an active issue. (Louise Mcginnis) Problem List: (1) Acute worsening of stage 4 chronic kidney disease ICD Codes: N28.9 - Disorder of kidney and ureter, unspecified; N18.4 - Chronic kidney disease, stage 4 (severe) Status: Acute Plan: History of CKD 4, Baseline GFR 20 to 25. he was on dialysis in the past for a few months then recovered. Renal function has declined in the past month, the etiology is not completely clear s/p VasCath placement 11/28 s/p cardiac cath on 11/29. Dialysis initiated on 11/29, 11/30. s/p AVF placement , to follow with vascular after discharge. Good thrill and bruit Plan for outpatient HD arrangements. He lives in [facility] but willing to consider [facility] for follow up purposes. NPO Saturday PM for Permcath Saturday AM. HD will be on tomorrow. Creatinine at 3.53 up from 3.05 today. Potassium WNL Continues to have Good UOP Avoid nephrotoxic agents. Patient seen and examined, agree with above. Discussed with the patient about jail HD. Dr. Brito will follow from AM. (2) Anemia ICD Codes: D64.9 - Anemia, unspecified Status: Acute Plan: On Venover Give Epogen with HD Given 2 units last week. (3) HTN (hypertension) ICD Codes: I10 - HTN (hypertension) Status: Chronic Plan: On Hydralazine TID Procardia XL 60mg PO BID Lisinopril held in light of possible RENETTA on CKD. Coreg continues Holding Lasix. (4) Afib ICD Codes: I48.91 - Afib Status: Chronic Plan: patient also had recurrent runs of Ventricular tachycardia. Had Cardiac cath. No intervention was needed. EP study was negative. (5) History of prostate cancer ICD Codes: Z85.46 - History of prostate cancer Status: Chronic Plan: Remote history, not an active issue. (Ivon Bhatti MD) Problem Qualifiers (1) Anemia: Qualified Codes: N18.4 - Chronic kidney disease, stage 4 (severe); D63.1 - Anemia in chronic kidney disease (2) Afib: Qualified Codes: I48.2 - Chronic atrial fibrillation Louise Mcginnis Dec 08, 2017 12:00 Ivon Bhatti MD Dec 08, 2017 19:28
--- NOTE | 2017-12-08 12:04 | PD.CARD.PN ---
Subjective Subjective Remarks sitting up , feeling well. Jacqueline at bedside. Objective Medications Current Medications Medications (Trade) Dose Ordered Sig/Coral Route Start Time Stop Time Status Last Admin (NS Flush) 2 ml UNSCH PRN IVF 11/23/17 12:00 11/28/17 09:43 (Zyloprim) 100 mg DAILY PO 11/24/17 09:00 12/08/17 08:14 (Xanax) 0.5 mg HS PRN PO 11/23/17 14:15 12/06/17 00:31 (Aspirin Chew) 81 mg DAILY CHEW 11/24/17 09:00 12/08/17 08:14 (Lipitor) 10 mg HS PO 11/23/17 21:00 12/07/17 21:20 (Apresoline) 50 mg TID PO 11/23/17 18:00 12/08/17 08:14 (Catapres) 0.1 mg Q6H PRN PO 11/23/17 15:00 11/23/17 17:23 (Procardia Xl) 60 mg Q12HR PO 11/23/17 21:00 12/08/17 08:14 (Vitamin D3) 1,000 units DAILY PO 11/25/17 10:00 12/08/17 08:14 Sodium Chloride 1,000 ml @ 0 mls/hr Q0M PRN OTHER 11/25/17 11:17 11/30/17 16:09 (Heparin Inj) 8,000 units UNSCH PRN IV FLUSH 11/25/17 11:30 Sodium Chloride 1,000 ml @ 200 mls/hr Q5H PRN IV 11/25/17 11:17 Sodium Chloride 1,000 ml @ 0 mls/hr Q0M PRN OTHER 11/25/17 11:17 (Mannitol Inj) 12.5 gm UNSCH PRN IV 11/25/17 11:30 Albumin Human 100 ml @ 60 mls/hr UNSCH PRN IV 11/25/17 11:30 (NS Flush) 5 ml UNSCH PRN IV FLUSH 11/25/17 11:30 11/30/17 16:08 (Heparin Inj) UNSCH PRN .XX 11/25/17 11:30 12/06/17 15:13 (Gentamicin Inj) 20 mg UNSCH PRN OTHER 11/25/17 11:30 12/06/17 15:12 (Zofran Inj) 4 mg UNSCH PRN IV PUSH 11/25/17 11:30 (Tylenol) 650 mg UNSCH PRN PO 11/25/17 11:30 12/06/17 08:54 (Benadryl) 25 mg UNSCH PRN PO 11/25/17 11:30 (Nitrostat Sl) 0.4 mg UNSCH PRN SL 11/25/17 11:30 (Catapres) 0.1 mg UNSCH PRN PO 11/25/17 11:30 (Epogen Inj) 10,000 units UNSCH PRN IV PUSH 11/25/17 11:30 12/06/17 15:12 (Gelfoam 12 Mm/7 Mm Top) 1 foam UNSCH PRN TOP 11/25/17 11:30 (Coreg) 12.5 mg Q12HR PO 11/26/17 21:00 12/08/17 08:14 (Hytrin) 1 mg HS PO 11/27/17 21:00 12/07/17 21:20 (NS Flush) UNSCH PRN IV FLUSH 11/28/17 16:00 (Heparin Inj) UNSCH PRN IV FLUSH 11/28/17 16:00 (NS Flush) 2 ml BID IV FLUSH 11/29/17 09:00 12/08/17 08:15 (NS Flush) 2 ml UNSCH PRN IV FLUSH 11/29/17 09:00 (Percocet 5-325 Mg) 1 tab Q4H PRN PO 12/02/17 17:30 (Percocet 5-325 Mg) 2 tab Q4H PRN PO 12/02/17 17:30 (Atropine Inj) 0.5 mg UNSCH PRN IV PUSH 12/02/17 17:30 (Zofran Inj) 4 mg Q4H PRN IV PUSH 12/02/17 17:30 (Lasix) 80 mg DAILY PO 12/03/17 09:00 Future Hold 12/04/17 09:35 Vital Signs / I&O Vital Signs Date Time Temp Pulse Resp B/P (MAP) Pulse Ox O2 Delivery O2 Flow Rate FiO2 12/08/17 09:15 93 21 12/08/17 06:00 68 12/08/17 05:00 62 12/08/17 04:10 94 Room Air 12/08/17 04:08 65 16 150/74 (99) 94 12/08/17 04:00 66 12/08/17 03:00 68 12/08/17 01:00 68 12/08/17 00:00 64 12/07/17 23:56 73 16 150/84 (106) 95 12/07/17 23:55 95 Room Air 12/07/17 23:00 71 12/07/17 22:00 76 12/07/17 21:00 66 12/07/17 20:00 70 12/07/17 19:50 98.5 73 16 141/76 (97) 98 12/07/17 19:50 98 Room Air 12/07/17 19:39 98 Nasal Cannula 21 12/07/17 19:00 73 12/07/17 18:06 74 12/07/17 17:03 62 12/07/17 16:19 92 12/07/17 15:08 99 Room Air 12/07/17 15:08 64 12/07/17 15:08 98.0 65 18 135/74 (94) 99 12/07/17 14:08 64 12/07/17 13:09 71 12/07/17 12:03 63 I/O 12/07/17 12/07/17 12/07/17 12/08/17 12/08/17 12/08/17 07:00 15:00 23:00 07:00 15:00 23:00 Intake Total 480 ml 600 ml 480 ml Output Total 750 ml 1300 ml 900 ml Balance -270 ml -700 ml -420 ml Intake Oral 480 ml 600 ml 480 ml Output Urine Total 750 ml 1300 ml 900 ml # Bowel Movements 0 2 0 Physical Exam GENERAL: Well-developed well-nourished. In no acute distress. NECK: No carotid bruits. No JVD. CARDIOVASCULAR: Irregular controlled rate and irregular rhythm. No murmur appreciated. RESPIRATORY: No accessory muscle use. Clear to auscultation. Breath sounds equal bilaterally. MUSCULOSKELETAL: No clubbing or cyanosis. No edema. NEUROLOGICAL: Awake and alert. Normal speech. Laboratory Laboratory Tests Test 12/08/17 05:17 Blood Urea Nitrogen 48 MG/DL Creatinine 3.53 MG/DL Random Glucose 82 MG/DL Albumin 2.7 GM/DL Calcium Level 8.3 MG/DL Phosphorus Level 3.3 MG/DL Sodium Level 141 MEQ/L Potassium Level 4.4 MEQ/L Chloride Level 107 MEQ/L Carbon Dioxide Level 26.0 MEQ/L Anion Gap 8 MEQ/L Estimat Glomerular Filtration Rate 17 ML/MIN Assessment and Plan Problem List: (1) Nonsustained ventricular tachycardia ICD Codes: I47.2 - Ventricular tachycardia (2) Acute on chronic kidney failure ICD Codes: N17.9 - Acute kidney failure, unspecified; N18.9 - Chronic kidney disease, unspecified Status: Acute (3) Afib ICD Codes: I48.91 - Afib Status: Chronic (4) Anemia ICD Codes: D64.9 - Anemia, unspecified Status: Acute (5) HTN (hypertension) ICD Codes: I10 - HTN (hypertension) Status: Chronic Assessment and Plan 82-year-old male with past medical history of A fib, HTN, CKD stage IV who presented for shortness of breath, NSVT, and heart failure. NSVT: Echo with normal EF. LHC / w/ no intervention indicated. EP consulted , s/p EPS 12/02/17 Dr. Rea, no ablation done. Another asymptomatic 15-beats VT today 12/08/2017. Continue Coreg 12.5 mg BID, unable to uptitrate dose due to baseline HR in60s. Will monitor A. fib: Rate controlled on carvedilol. On Eliquis. Problem Qualifiers (1) Acute on chronic kidney failure: Qualified Codes: N17.9 - Acute kidney failure, unspecified; N18.9 - Chronic kidney disease, unspecified (2) Afib: Qualified Codes: I48.2 - Chronic atrial fibrillation (3) Anemia: Qualified Codes: N18.4 - Chronic kidney disease, stage 4 (severe); D63.1 - Anemia in chronic kidney disease Wing Nini Ramirez MD Dec 08, 2017 12:04
[2017-12-08] MEDS: TERAZOSIN HCL 1 MG CAP PO SCH (20:51)
[2017-12-08] MEDS: ATORVASTATIN 10 MG TAB PO SCH (20:52)
[2017-12-09] VITALS (12 sets, daily range): BP systolic 132–143; BP diastolic 74–79; PULSE 62–72; RESP 16–18; TEMP 98.3; O2SAT 96–98
[2017-12-09 06:32] LABS: ALBUMIN 2.8 GM/DL (3.4-5.0); BICARBONATE 26.4 MEQ/L (21.0-32.0); CREATININE 3.93 MG/DL (0.60-1.30); PHOSPHORUS 3.8 MG/DL (2.5-4.9)
--- NOTE | 2017-12-09 08:32 | HHI.PR ---
Subjective Remarks no new symtoms. ambulating alot eager for d/c Objective Vitals heart reg lung cta abd s/nt ext no edema vascath. Vital Signs Date Time Temp Pulse Resp B/P (MAP) Pulse Ox O2 Delivery O2 Flow Rate FiO2 12/09/17 06:00 62 12/09/17 05:00 62 12/09/17 04:29 72 16 143/79 (100) 96 12/09/17 04:00 66 12/09/17 03:00 63 12/09/17 02:00 66 12/09/17 01:00 70 12/09/17 00:00 64 12/08/17 23:45 75 16 154/82 (106) 96 12/08/17 23:00 66 12/08/17 22:00 66 12/08/17 21:00 68 12/08/17 20:00 68 12/08/17 19:50 97.4 66 16 144/82 (102) 98 12/08/17 19:50 98 Room Air 12/08/17 19:00 67 12/08/17 18:06 75 12/08/17 17:17 86 12/08/17 16:03 74 12/08/17 15:12 73 12/08/17 15:12 98 Room Air 12/08/17 15:12 98.0 74 16 144/81 (102) 98 12/08/17 14:05 66 12/08/17 13:22 71 12/08/17 12:07 65 12/08/17 11:15 98.2 61 16 138/82 (100) 95 12/08/17 11:15 59 12/08/17 11:15 95 Room Air 12/08/17 10:00 65 12/08/17 09:15 93 21 12/08/17 09:00 64 Result Diagram: 12/09/17 0511 Imaging Last Impressions Myocardial Perfusion Scan Nuc Med 11/27/17 0000 Signed Impressions: Service Date/Time: Monday, November 27, 2017 14:29 - CONCLUSION: Mild global hypokinesis. No reversible ischemic segments are identified. RISK CATEGORY: Intermediate (1-3%% Annual Mortality Rate) Tay Morelos MD Chest X-Ray 11/27/17 0000 Signed Impressions: Service Date/Time: Monday, November 27, 2017 10:50 - CONCLUSION: Mild congestive failure probable trace fluid on the left Austin Chu MD FACR Upper Extremity Ultrasound 11/23/17 0000 Signed Impressions: Service Date/Time: Thursday, November 23, 2017 20:28 - CONCLUSION: No DVT is identified within either upper extremity. Froylan Sahu MD Renal Ultrasound 11/23/17 0000 Signed Impressions: Service Date/Time: Thursday, November 23, 2017 14:32 - CONCLUSION: 1. No evidence of hydronephrosis. 2. Chronic medical renal disease. 3. Multiple Bilateral benign-appearing renal cysts. 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 acute/chronic kidney dz stage 4 hx temp dialysis after bowel perforation 2. volume overload 3. acute on chronic anemia 4. afib on anticoagulation 5. htn 6. hx prostate ca/radiation 7. hx sbo/ischemic bowel perforation/resection - Echocardiogram (11/24) --> EF 50-55% - baseline CKD stage 4 now with decline in Renal function has the etiology is not completely clear - Lexiscan showed no reversible ischemia but patient has been having runs of NSVT, - LHC (11/29) with Dr. Tay Robles. No critical stenosis requiring intervention - EP study for NSVT with Dr. Rea 12/02 negative.- - Vascath placed (11/28/17) - Pt underwent HD 11/29, 11/30, 12/06 - Lasix 80mg IV daily convert to po 12/03 - AVF creation with dr Shaw left arm 12/05 -discussed with Dr Brito.. - Pt will get permath on today...hold eliquis. then d/c home when HD arrangement made. Pt asking for HD clinic close to home in [facility]. cont current rx today. dc orders ready for discharge once pt gets permcath, outpt HD arrangement, and possible HD today if needed. (2) Afib ICD Codes: I48.91 - Afib Status: Chronic Plan: - telemetry (11/26) showed NSVT and periods of bradycardia with causes. Currently telemetry - decrease coreg 12.5mg BID - Echocardiogram (11/24) --> EF 55-60%, moderate TR - Case d/w Dr. Tay Robles (11/26) and (11/28) - Lexiscan (11/27) --> mild hypokinesis - S/P cardiac cath (11/29) with Dr. Robles with no intervention indicated - eps negative (3) Anemia ICD Codes: D64.9 - Anemia, unspecified Status: Acute Plan: - s/p 2 units blood. (4) HTN (hypertension) ICD Codes: I10 - HTN (hypertension) Status: Chronic (5) History of prostate cancer ICD Codes: Z85.46 - History of prostate cancer Status: Chronic Problem Qualifiers (1) Afib: Qualified Codes: I48.2 - Chronic atrial fibrillation (2) Anemia: Qualified Codes: N18.4 - Chronic kidney disease, stage 4 (severe); D63.1 - Anemia in chronic kidney disease Chauncey Ashton MD Dec 09, 2017 08:32
[2017-12-09] MEDS ORDERED: TERA1CAP3 PO (08:35)
[2017-12-09] MEDS ORDERED: FURO1TAB60 PO (08:35)
[2017-12-09] MEDS ORDERED: NIFE60TA8 PO (08:35)
[2017-12-09] MEDS ORDERED: CARV12.5 PO (08:35)
--- NOTE | 2017-12-09 08:37 | HHI.DCPOC ---
Discharge Care Plan Diagnosis: (1) Acute worsening of stage 4 chronic kidney disease (2) Nonsustained ventricular tachycardia (3) AVF (arteriovenous fistula) (4) Afib (5) HTN (hypertension) Goals to Promote Your Health * To prevent worsening of your condition and complications * To maintain your health at the optimal level Directions to Meet Your Goals Take your medications as prescribed Follow your dietary instruction Follow activity as directed Keep your appointments as scheduled Take your immunizations and boosters as scheduled If your symptoms worsen call your PCP, if no PCP go to Urgent Care Center or Emergency Room Smoking is Dangerous to Your Health. Avoid second hand smoke Call the 24-hour hour crisis hotline for domestic abuse at Chauncey Ashton MD Dec 09, 2017 08:37
[2017-12-09] MEDS: CHOLECALCIFEROL (VIT D3) 1000 UNIT TAB PO SCH (08:54)
[2017-12-09] MEDS: NIFEdipine 60 MG SUSTAINED RELEASE TAB PO SCH (08:54)
[2017-12-09] MEDS: ASPIRIN 81 MG CHEW TAB CHEW SCH (08:54)
[2017-12-09] MEDS: ALLOPURINOL 100 MG TAB PO SCH (08:54)
[2017-12-09] MEDS: CARVEDILOL 12.5 MG TAB PO SCH (08:54)
[2017-12-09] MEDS: SODIUM CHLORIDE 0.9% FLUSH 10 ML FLUSH IV FLUSH SCH (09:00)
[2017-12-09] MEDS: hydrALAZINE HCL 50 MG TAB PO SCH (09:00)
--- NOTE | 2017-12-09 09:45 | HHI.NPPN ---
Subjective Renal Failure: Chronic, Acute, Stage IV Interval History Sitting up in a chair, at bedside. Excellent urine output. (Shirley Carey) Review of Systems General Constitutional: Fatigue (Shirley Carey) Respiratory Respiratory Remarks Denies SOB (Shirley Carey) Cardiovascular Cardiac Remarks Mild edema (Shirley Carey) Gastrointestinal GI Remarks Denies abdominal pain (Shirley Carey) Objective Data Data Vital Signs Date Time Temp Pulse Resp B/P (MAP) Pulse Ox O2 Delivery O2 Flow Rate FiO2 12/09/17 09:34 69 12/09/17 08:00 66 12/09/17 07:36 98.3 68 18 132/74 (93) 98 12/09/17 07:36 62 12/09/17 07:36 97 Room Air 12/09/17 06:00 62 12/09/17 05:00 62 12/09/17 04:29 72 16 143/79 (100) 96 12/09/17 04:00 66 12/09/17 03:00 63 12/09/17 02:00 66 12/09/17 01:00 70 12/09/17 00:00 64 12/08/17 23:45 75 16 154/82 (106) 96 12/08/17 23:00 66 12/08/17 22:00 66 12/08/17 21:00 68 12/08/17 20:00 68 12/08/17 19:50 97.4 66 16 144/82 (102) 98 12/08/17 19:50 98 Room Air 12/08/17 19:00 67 12/08/17 18:06 75 12/08/17 17:17 86 12/08/17 16:03 74 12/08/17 15:12 73 12/08/17 15:12 98 Room Air 12/08/17 15:12 98.0 74 16 144/81 (102) 98 12/08/17 14:05 66 12/08/17 13:22 71 12/08/17 12:07 65 12/08/17 11:15 98.2 61 16 138/82 (100) 95 12/08/17 11:15 59 12/08/17 11:15 95 Room Air 12/08/17 10:00 65 (Shirley Carey) -: 12/09/17 0511 Tubes & Lines: Vas-Cath (Shirley Carey) Physical Exam General Appearance: Well Developed, Well Nourished, No Acute Distress, Comfortable (Shirley Carey) Ears & Nose Ears & Nose Exam: Tympanic Membranes Normal (Shirley Carey) Throat Throat Exam: Oral Mucosa [address] & Moist (Shirley Carey) Neck Neck Exam: Neck Supple (Shirley Carey) Pulmonary Resp Exam: Clear Bilaterally, Breath Sounds Equal, No Distress, Decreased Bases (Shirley Carey) Cardiology CV Exam: Regular, Normal Sinus Rhythm (Shirley Carey) Gastrointestinal/Abdomen GI Exam: Soft, Non-Tender, Positive Bowel Movement (Shirley Carey) Musculoskeletal MS Exam: Joints Intact, Normal Tone (Shirley Carey) Integumentary Skin Exam: Clear, Warm, Dry, Intact (Shirley Carey) Extremeties Extremities Exam: Pedal Pulses Palpable, Trace Edema, Dependent Edema (Shirley Carey) Neurologic Neuro Exam: Alert, Awake, Oriented, Speech Clear, Moving All Extremities (Shirley Carey) Psychiatric Psych Exam: Appropriate Responses (Shirley Carey) Assessment/Plan Discussed Condition With: Patient, Spouse Assessment Summary: RENETTA/Acute Renal Failure, Anemia of CKD, Fluid/Volume Overload, Hypertension, CKD Stage IV Problem List: (1) Acute worsening of stage 4 chronic kidney disease ICD Codes: N28.9 - Disorder of kidney and ureter, unspecified; N18.4 - Chronic kidney disease, stage 4 (severe) Status: Acute Plan: History of CKD 4, Baseline GFR 20 to 25. he was on dialysis in the past for a few months then recovered. Renal function has declined in the past month, the etiology is not completely clear; possibly due to fluid retention related starting minoxidil s/p VasCath placement 11/28 s/p cardiac cath on 11/29. Dialysis initiated on 11/29, 11/30. s/p AVF placement 3/l8 Continues to have Good UOP Creatinine is higher today but he does not require dialysis today. We will start Lasix 40 mg daily Remove vascath today, cancel Permcath Will follow in CKD clinic next week, lab slip given to patient Avoid nephrotoxic agents. (2) Anemia ICD Codes: D64.9 - Anemia, unspecified Status: Acute Plan: On Venover Given epogen (3) HTN (hypertension) ICD Codes: I10 - HTN (hypertension) Status: Chronic Plan: On Hydralazine TID Procardia XL 60mg PO BID Coreg continues Resume lasix today (4) Afib ICD Codes: I48.91 - Afib Status: Chronic Plan: patient also had recurrent runs of Ventricular tachycardia. Had Cardiac cath. No intervention was needed. EP study was negative. (5) History of prostate cancer ICD Codes: Z85.46 - History of prostate cancer Status: Chronic Plan: Remote history, not an active issue. (Shirley Carey) Plan patient was seen and examined. Agree with above assessment and plan. Can be discharged from renal standpoint. We will see him in one week and follow his labs. (Tai Brito MD) Problem Qualifiers (1) Anemia: Qualified Codes: N18.4 - Chronic kidney disease, stage 4 (severe); D63.1 - Anemia in chronic kidney disease (2) Afib: Qualified Codes: I48.2 - Chronic atrial fibrillation Shirley Carey Dec 09, 2017 09:45 Tai Brito MD Dec 09, 2017 09:56
[2017-12-09] MEDS ORDERED: FUROSEMIDE 40 MG TAB PO SCH (11:00)
[2017-12-10] MEDS ORDERED: FUROSEMIDE 80 MG TAB PO SCH (09:00)
== END 2017-12-09 11:27 | disposition home or self-care (01) | DRG 673 ==
LOC: NEPE 11:40 → NEDA 13:35 → N04B 15:44 → HCIS 11-29 08:20 → N04B 11-29 09:09 → HCIS 11-29 17:44
PROVIDERS: ADMIT Hospitalist; ATTEND Hospitalist
PROC: 05HM33Z Insertion of Infusion Device into Right Internal Jugular Vein, Percutaneous Approach (ICD-10-PCS; 2017-11-28)
PROC: 5A1D70Z Performance of Urinary Filtration, Intermittent, Less than 6 Hours Per Day (ICD-10-PCS; 2017-11-29)
PROC: 4A023N7 Measurement of Cardiac Sampling and Pressure, Left Heart, Percutaneous Approach (ICD-10-PCS; 2017-11-29)
PROC: B2111ZZ Fluoroscopy of Multiple Coronary Arteries using Low Osmolar Contrast (ICD-10-PCS; 2017-11-29)
PROC: 30233N1 Transfusion of Nonautologous Red Blood Cells into Peripheral Vein, Percutaneous Approach (ICD-10-PCS; 2017-11-30)
PROC: 4A023FZ Measurement of Cardiac Rhythm, Percutaneous Approach (ICD-10-PCS; 2017-12-02)
PROC: 4A0234Z Measurement of Cardiac Electrical Activity, Percutaneous Approach (ICD-10-PCS; 2017-12-02)
PROC: 031C09F Bypass Left Radial Artery to Lower Arm Vein with Autologous Venous Tissue, Open Approach (ICD-10-PCS; principal; 2017-12-05 08:20)
DX: N17.9 Acute kidney failure, unspecified (principal); J81.0 Acute pulmonary edema; I47.2 Ventricular tachycardia; I47.1 Supraventricular tachycardia; I13.0 Hypertensive heart and chronic kidney disease with heart failure and stage 1 through stage 4 chronic kidney disease, or unspecified chronic kidney disease; I50.9 Heart failure, unspecified; R00.1 Bradycardia, unspecified; E88.89 Other specified metabolic disorders; I48.2 Chronic atrial fibrillation; N25.81 Secondary hyperparathyroidism of renal origin; N18.4 Chronic kidney disease, stage 4 (severe); N28.1 Cyst of kidney, acquired; R74.8 Abnormal levels of other serum enzymes; Z85.46 Personal history of malignant neoplasm of prostate; Z92.3 Personal history of irradiation; H91.90 Unspecified hearing loss, unspecified ear; Z79.01 Long term (current) use of anticoagulants; H35.30 Unspecified macular degeneration; Z90.49 Acquired absence of other specified parts of digestive tract; D63.1 Anemia in chronic kidney disease; M10.9 Gout, unspecified; E61.1 Iron deficiency
CPT/HCPCS: 36430; 36556; 71045; 71046; 76775; 76937; 77001; 78452; 80048; 80053; 80069; 80074; 81001; 82306; 82550; 82552; 82570; 82652; 82728; 83540; 83550; 83735; 83880; 83970; 84100; 84156; 84300; 84484; 85025; 85610; 85730; 86850; 86900; 86901; 86920; 90935; 93005; 93017; 93306; 93454; 93620; 93623; 93970; 93998; 96374; 96375; 99152; 99153; 99285; A9502; C1730; C1752; C1769; C1893; J0131; J0690; J1580; J1644; J1756; J1940; J2250; J2370; J2405; J2720; J2785; J3010; J3370; J7030; J7040; P9016; Q4081; Q9967